=== PATIENT | female | born 1980 | race Caucasian/White ===

== ENCOUNTER 2016-02-25 15:23 | Emergency (ER) | payer OTHER ==
[~2016-02-25] VITALS: Ht 170.2 cm; Wt 92.2 kg
[~2016-02-25 15:23] MED LIST: OXYC1TAB3 PO; POTA1080 PO
[2016-02-25 15:25] VITALS: TEMP 37; Ht 170.2 cm; Wt 92.2 kg
[2016-02-25] MEDS ORDERED: ONDANSETRON INJ 2 MG/ML 2 ML VIAL IV STA (15:35)
[2016-02-25] MEDS ORDERED: SODIUM CHLORIDE 0.9% 1000ML 1,000 ML IV STA (15:35)
[2016-02-25] MEDS ORDERED: HYDROmorphone INJ 1 MG/ML SYR IV STA (15:35)
[2016-02-25 15:52] LABS: PREG INTERNAL NEGATIVE QC NEG CLEAR BACKGROUND; PREG INTERNAL POSITIVE QC POS CONTROL LINE; URINE APPEARANCE CLOUDY (CLEAR); URINE BILIRUBIN NEG (NEG); URINE COLOR YELLOW; URINE EPITHELIAL CELL AUTO >30 /lpf (0-5); URINE NITRITE NEG (NEG); URINE PH 7.5 (4.5-7.5); UROBILINOGEN NEG (NEG)
[2016-02-25 15:53] LABS: MANUAL MICROSCOPIC REQUIRED? NO; REVIEW REQ? NO
[2016-02-25 16:04] LABS: BASO % 0.3 %; BASO ABS # 0.03 K/uL (0-0.2); COMPLETE YES; EOS % 0.7 %; HEMATOCRIT 36.3 % (37-47); IG% 0.1 %; LYMPH % 32.1 %; LYMPH ABS # 3.22 K/uL (1.2-3.4); MEAN CELL VOLUME 79.3 fL (80-100); MEAN CORPUSCULAR HEMOGLOBIN 24.5 pg (25-34); MEAN CORPUSCULAR HGB CONC 30.9 g/dl (32-36); MEAN PLATELET VOLUME 9.1 fL (7.4-10.4); MONO % 6.4 %; NEUT % 60.4 %; PLATELET COUNT 322 K/uL (130-400); RED BLOOD COUNT 4.58 M/uL (4.2-5.4); WHITE BLOOD COUNT 10.02 K/uL (4.8-10.8)
[2016-02-25 16:23] LABS: ALT/SGPT 25 U/L (12-78); AST/SGOT 10 U/L (15-37); BLOOD UREA NITROGEN 12 mg/dl (7-18); BUN/CREATININE RATIO 12.2 (10-20); CALCIUM 8.9 mg/dl (8.5-10.1); CARBON DIOXIDE 26 mmol/L (21-32); CHLORIDE 108 mmol/L (98-107); GLUCOSE 117 mg/dl (70-99); POTASSIUM 3.7 mmol/L (3.5-5.1); SODIUM 142 mmol/L (136-145)
[2016-02-25 16:26] LABS: ALKALINE PHOSPHATASE 71 U/L (45-117)
[2016-02-25] MEDS ORDERED: SULF800T23 PO (16:52)
[2016-02-25] MEDS ORDERED: OXYC1TAB3 PO (16:52)
--- NOTE | 2016-02-25 17:23 | EMERGENCY ROOM VISIT NOTE ---
History Report prepared by Irving: Fuentes Doe Under the Supervision of: Dr. Isaias Myers M.D. First contact with patient: 15:29 Chief Complaint: FLANK PAIN Stated Complaint: KIDNEY PAIN History of Present Illness The patient is a 35 year old female who presents to the Emergency Room with complaints of constant right flank pain since yesterday. The pain is sharp and is consistent with past kidney stones. The patient also complains of nausea. The patient denies any fevers, vomiting, diarrhea, or urinary symptoms. She denies the possibility of . She had a renal ultrasound in December. The patient does follow up with Urology. Source of History: patient Onset: yesterday Position: back (right flank) Symptom Intensity: moderate Quality: sharp Timing: constant Associated Symptoms: + nausea, No diarrhea, No fevers, No urinary symptoms, No vomiting Review of Systems See HPI for pertinent positives & negatives. A total of 10 systems reviewed and were otherwise negative. Past Medical & Surgical Medical Problems: (1) De Quervain's tenosynovitis, right (2) Depression (3) Kidney stones (4) Pyelonephritis (5) Right ureteral calculus Family History No significant family history Social History Smoking Status: Current Every Day Smoker Alcohol Use: none Drug Use: none Marital Status: single Housing Status: lives with family Occupation Status: employed Current/Historical Medications Scheduled Potassium Citrate (Urocit-K), 10 MEQ PO TID Sulfa/Trimethoprim (Bactrim Ds 800MG/160MG), 1 TAB PO BID Scheduled PRN Acetaminophen (Tylenol), 1,000 MG PO Q6H PRN for Pain Ysjgjpq-Nndmvespoanvo-Zuqejufy (Excedrin Extra Strength), 1-2 TABS PO Q8 PRN for Pain Oxycodone Ir (Roxicodone Ir), 5 MG PO Q4H PRN for Pain Allergies Coded Allergies: Morphine (Verified Allergy, Intermediate, HIVES, 01/10/16) Naproxen (Verified Allergy, Intermediate, HIVES, 01/10/16) Physical Exam Vital Signs Date Time Temp Pulse Resp B/P Pulse Ox O2 Delivery O2 Flow Rate FiO2 02/25/16 15:25 37.0 117 18 122/86 100 Room Air Physical Exam Constitutional: Vital signs reviewed. Eyes: Pupils are equal round reactive to light. Conjunctiva are noninjected. ENT: Pharynx is clear without erythema or exudate. Mucous membranes are moist. Neck supple without meningeal signs. Respiratory: Clear to auscultation bilaterally. Breath sounds are equal bilaterally. Cardiovascular: Regular rate and rhythm. No rubs or gallops. GI: Soft, nondistended and nontender. Bowel sounds are present. Musculoskeletal: No peripheral edema. No CVA tenderness. Integumentary: No cyanosis. Neurological: The patient is awake and alert. No focal deficits. Psychiatric: Normal affect. Medical Decision & Procedures Laboratory Results 02/25/16 15:50 Red Blood Count 4.58, Mean Corpuscular Volume 79.3, Mean Corpuscular Hemoglobin 24.5, Mean Corpuscular Hemoglobin Concent 30.9, Mean Platelet Volume 9.1, Neutrophils (%) (Auto) 60.4, Lymphocytes (%) (Auto) 32.1, Monocytes (%) (Auto) 6.4, Eosinophils (%) (Auto) 0.7, Basophils (%) (Auto) 0.3, Neutrophils # (Auto) 6.05, Lymphocytes # (Auto) 3.22, Monocytes # (Auto) 0.64, Eosinophils # (Auto) 0.07, Basophils # (Auto) 0.03 02/25/16 15:50 Test 02/25/16 00:00 02/25/16 15:50 Urine Color YELLOW Urine Appearance CLOUDY (CLEAR) Urine pH 7.5 (4.5-7.5) Urine Specific [place] 1.010 (1.000-1.030) Urine Protein NEG (NEG) Urine Glucose (UA) NEG (NEG) Urine Ketones NEG (NEG) Urine Occult Blood NEG (NEG) Urine Nitrite NEG (NEG) Urine Bilirubin NEG (NEG) Urine Urobilinogen NEG (NEG) Urine Leukocyte Esterase TRACE (NEG) Urine WBC (Auto) 10-30 /hpf (0-5) Urine RBC (Auto) 0-4 /hpf (0-4) Urine Hyaline Casts (Auto) 1-5 /lpf (0-5) Urine Epithelial Cells (Auto) >30 /lpf (0-5) Urine Bacteria (Auto) 1+ (NEG) Urine Test NEG (NEG) White Blood Count 10.02 K/uL (4.8-10.8) Red Blood Count 4.58 M/uL (4.2-5.4) Hemoglobin 11.2 g/dL (12.0-16.0) Hematocrit 36.3 % (37-47) Mean Corpuscular Volume 79.3 fL (80-100) Mean Corpuscular Hemoglobin 24.5 pg (25-34) Mean Corpuscular Hemoglobin Concent 30.9 g/dl (32-36) Platelet Count 322 K/uL (130-400) Mean Platelet Volume 9.1 fL (7.4-10.4) Neutrophils (%) (Auto) 60.4 % Lymphocytes (%) (Auto) 32.1 % Monocytes (%) (Auto) 6.4 % Eosinophils (%) (Auto) 0.7 % Basophils (%) (Auto) 0.3 % Neutrophils # (Auto) 6.05 K/uL (1.4-6.5) Lymphocytes # (Auto) 3.22 K/uL (1.2-3.4) Monocytes # (Auto) 0.64 K/uL (0.11-0.59) Eosinophils # (Auto) 0.07 K/uL (0-0.5) Basophils # (Auto) 0.03 K/uL (0-0.2) RDW Standard Deviation 44.9 fL (36.4-46.3) RDW Coefficient of Variation 15.4 % (11.5-14.5) Immature Granulocyte % (Auto) 0.1 % Immature Granulocyte # (Auto) 0.01 K/uL (0.00-0.02) Anion Gap 8.0 mmol/L (3-11) Est Creatinine Clear Calc Drug Dose 92.4 ml/min Estimated GFR () 85.1 Estimated GFR (Non- 73.5 BUN/Creatinine Ratio 12.2 (10-20) Calcium Level 8.9 mg/dl (8.5-10.1) Total Bilirubin 0.2 mg/dl (0.2-1) Direct Bilirubin < 0.1 mg/dl (0-0.2) Aspartate Amino Transf (AST/SGOT) 10 U/L (15-37) Alanine Aminotransferase (ALT/SGPT) 25 U/L (12-78) Alkaline Phosphatase 71 U/L (45-117) Total Protein 7.7 gm/dl (6.4-8.2) Albumin 3.9 gm/dl (3.4-5.0) Lipase 261 U/L (73-393) Laboratory results as reviewed by me. Medications Administered Medications (Trade) Dose Ordered Sig/Agus Route Start Time Stop Time Status Last Admin Dose Admin Ondansetron HCl (Zofran Inj) 4 mg NOW STAT IV 02/25/16 15:35 02/25/16 15:36 DC 02/25/16 15:55 4 MG Hydromorphone HCl 0.5 mg 0.5 mg NOW STAT IV 02/25/16 15:35 02/25/16 15:36 DC 02/25/16 15:55 0.5 MG Sodium Chloride (Nss 1000ml) 1,000 ml @ 999 mls/hr Q1H1M STAT IV 02/25/16 15:35 02/25/16 16:35 DC 02/25/16 15:56 999 MLS/HR ED Course 1531: The patient was evaluated in room A9b. A complete history and physical exam was performed. 1535: NSS 1000 ml @ 999 mls/hr, Dilaudid 0.5 mg IV, Zofran 4 mg IV. 1645: Checked on the patient. She is feeling better. 1649: The [place] Prescription Drug Monitoring Program was reviewed for the patient. No issues identified. 1650: Upon reevaluation, the patient appeared to have improvement of her symptoms. I discussed tiffanie's findings with her. She verbalized agreement of the treatment plan. She was discharged home. Medical Decision This is a 35-year-old female who presents with right flank pain. Differential diagnosis includes renal colic, hydronephrosis, UTI, pancreatitis, strain. I did perform a limited focused review of portions of the patient's old chart on the electronic medical record. The patient was here on January 10 for flank pain on the left side. She had a renal ultrasound which showed mild hydronephrosis and bilateral medullary nephrocalcinosis. I did evaluate the patient as noted above. The patient is presenting with right flank pain which she states is consistent with her prior pain with renal colic. She did have nephrocalcinosis on her prior ultrasound. She has no tenderness on examination to suggest an acute surgical process. I did treat the patient with IV Zofran, Dilaudid and normal saline IV. I did order and personally review the patient's urinalysis as described above. A urine culture was sent. I did order and review the patient's blood work as noted in the electronic medical record. I did reassess the patient. She is feeling better. I did recommend she follow up with her doctor. She was discharged with a prescription for Bactrim and oxycodone. Impression Primary Impression: Right flank pain Additional Impression: UTI (urinary tract infection) Scribe Attestation The scribe's documentation has been prepared under my direct and personally reviewed by me in its entirety. I confirm that the note above accurately reflects all work, treatment, procedures, and medical decision making performed by me. Departure Information Dispostion Home / Self-Care Prescriptions Oxycodone Ir (Roxicodone Ir) 5 Mg Tab 5 MG PO Q4H Y for Pain, #14 TAB Prov: Isaias Myers M.D. 02/25/16 Sulfa/Trimethoprim (Bactrim Ds 800MG/160MG) Tab 1 TAB PO BID, #14 TAB Prov: Isaias Myers M.D. 02/25/16 Referrals aMrk Tuttle M.D. (PCP) Forms HOME CARE DOCUMENTATION FORM, IMPORTANT VISIT INFORMATION Patient Instructions A Signature Page, ED Flank Pain Uncertain Cause, [facility] Additional Instructions You have been examined and treated today on an emergency basis only. This is not a substitute for, or an effort to provide, complete comprehensive medical care. It is impossible to recognize and treat all injuries or illnesses in a single emergency department visit. It is therefore important that you follow up closely with your physician. Call as soon as possible for an appointment. Return for worsening symptoms or if you develop fever, vomiting, or any other concerning symptoms. Problem Qualifiers Additional Impression: UTI (urinary tract infection) Urinary tract infection type: acute cystitis Hematuria presence: without hematuria Qualified Codes: N30.00 - Acute cystitis without hematuria
[2016-02-25 17:24] VITALS: BP 132/74; PULSE 84; O2SAT 99
[2016-06-04] MEDS ORDERED: ASPI-391 PO (06:52)
== END 2016-02-25 17:27 | disposition home or self-care (01) ==
LOC: C.EDB 15:24 → C.EDA 17:27
DX: N30.00 Acute cystitis without hematuria (principal); F17.200 Nicotine dependence, unspecified, uncomplicated; Z87.442 Personal history of urinary calculi; Z87.448 Personal history of other diseases of urinary system; Z88.5 Allergy status to narcotic agent; Z88.6 Allergy status to analgesic agent

== ENCOUNTER 2016-04-06 19:16 | Emergency (ER) | payer OTHER ==
[~2016-04-06] VITALS: Ht 170.2 cm; Wt 92.7 kg
[~2016-04-06 19:16] MED LIST changes: +SULF800T23 PO
[2016-04-06 19:37] VITALS: TEMP 37.5; Ht 170.2 cm; Wt 92.7 kg
[2016-04-06] MEDS ORDERED: ONDANSETRON INJ 2 MG/ML 2 ML VIAL IV STA (20:43)
[2016-04-06] MEDS ORDERED: HYDROmorphone INJ 0.5 MG/0.5 ML SYR IV STA (20:43)
[2016-04-06] MEDS ORDERED: SODIUM CHLORIDE 0.9% 1000ML 1,000 ML IV STA ×2 (20:43→20:53)
[2016-04-06 21:12] LABS: URINE APPEARANCE CLOUDY (CLEAR); URINE BILIRUBIN NEG (NEG); URINE COLOR YELLOW; URINE EPITHELIAL CELL AUTO >30 /lpf (0-5); URINE NITRITE NEG (NEG); URINE PH 7.5 (4.5-7.5); URINE SPECIFIC GRAVITY 1.003 (1.000-1.030); UROBILINOGEN NEG (NEG); ZZUR CULT IF INDIC CLEAN CATCH NO
[2016-04-06 21:13] LABS: MANUAL MICROSCOPIC REQUIRED? NO; REVIEW REQ? NO
[2016-04-06 21:15] LABS: HEMATOCRIT 33.4 % (37-47); MEAN CELL VOLUME 74.2 fL (80-100); MEAN CORPUSCULAR HEMOGLOBIN 23.3 pg (25-34); MEAN CORPUSCULAR HGB CONC 31.4 g/dl (32-36); MEAN PLATELET VOLUME 8.5 fL (7.4-10.4); PLATELET COUNT 365 K/uL (130-400); WHITE BLOOD COUNT 12.22 K/uL (4.8-10.8)
--- NOTE | 2016-04-06 21:22 | DIAGNOSTIC IMAGING REPORT ---
ABDOMEN AND PELVIS CT WITHOUT CONTRAST CT DOSE: 576.24 mGy.cm HISTORY: Flank pain r flank pain TECHNIQUE: Multiaxial CT images of the abdomen and pelvis were performed without contrast. COMPARISON STUDY: 09/12/2015 FINDINGS: Lung bases are clear. Liver spleen and pancreas are unremarkable. Kidneys again show evidence for medullary nephrocalcinosis. No evidence for an obstructing urinary tract calculus. Normal appendix. Bowel pattern is nonobstructive. Bladder is midline. IMPRESSION: 1. Medullary nephrocalcinosis unchanged from the prior study. 2. No evidence for an obstructing urinary tract calculus. 3. Otherwise negative study. 4. No change from the prior study. Electronically signed by: Alvarado Villa M.D. 04/06/2016 9:20 PM Dictated Date/Time: 04/06/2016 9:17 PM
[2016-04-06 21:40] LABS: ALT/SGPT 27 U/L (12-78); BLOOD UREA NITROGEN 11 mg/dl (7-18); BUN/CREATININE RATIO 10.9 (10-20); CARBON DIOXIDE 23 mmol/L (21-32); CHLORIDE 106 mmol/L (98-107); GLUCOSE 78 mg/dl (70-99); POTASSIUM 3.5 mmol/L (3.5-5.1); SODIUM 139 mmol/L (136-145)
[2016-04-06 21:43] LABS: ALKALINE PHOSPHATASE 73 U/L (45-117); AST/SGOT 15 U/L (15-37)
[2016-04-06 21:45] LABS: BASO % 0.3 %; BASO ABS # 0.04 K/uL (0-0.2); COMPLETE YES; EOS % 0.7 %; IG% 0.2 %; LYMPH % 31.3 %; LYMPH ABS # 3.82 K/uL (1.2-3.4); MONO % 6.5 %
[2016-04-06 21:59] VITALS: BP 119/77; PULSE 90; O2SAT 98
--- NOTE | 2016-04-06 23:10 | EMERGENCY ROOM VISIT NOTE ---
History Report prepared by Nanyibkaylen: Sheba Dunn Under the Supervision of: Jimmy ZamoranoO. First contact with patient: 20:37 Chief Complaint: KIDNEY STONE Stated Complaint: KIDNEY STONE UTI History of Present Illness The patient is a 35 year old female who presents to the Emergency Room with complaints of severe and constant right flank pain starting yesterday. Yesterday , she started having a malodorous urine but denies any other urinary symptoms. She currently complains of nausea. She describes her current pain to be similar to her past UTI and kidney stone symptoms. Patient has no other complaints at this time. No radiation of the pain. Pt denies headache, change in vision, fevers, chest pain, shortness of breath, vomiting, diarrhea, pain with urination , and melena. Source of History: patient Onset: yesterday Position: other (right flank ) Symptom Intensity: severe Timing: constant Associated Symptoms: + nausea, No SOB, No chest pain, No diarrhea, No fevers , No headache, No vomiting Review of Systems See HPI for pertinent positives & negatives. A total of 10 systems reviewed and were otherwise negative. Past Medical & Surgical Medical Problems: (1) De Quervain's tenosynovitis, right (2) Depression (3) Kidney stones (4) Pyelonephritis (5) Right ureteral calculus Family History No significant family history Social History Smoking Status: Current Every Day Smoker Alcohol Use: none Drug Use: none Marital Status: single Housing Status: lives with family Occupation Status: employed Current/Historical Medications Scheduled Potassium Citrate (Urocit-K), 10 MEQ PO TID Scheduled PRN Acetaminophen (Tylenol), 1,000 MG PO Q6H PRN for Pain Jpnsquy-Tbstkrqteilqh-Rydtauzi (Excedrin Extra Strength), 1-2 TABS PO Q8 PRN for Pain Allergies Coded Allergies: Morphine (Verified Allergy, Intermediate, HIVES, 01/10/16) Naproxen (Verified Allergy, Intermediate, HIVES, 01/10/16) Physical Exam Vital Signs Date Time Temp Pulse Resp B/P Pulse Ox O2 Delivery O2 Flow Rate FiO2 04/06/16 21:59 90 18 119/77 98 Room Air 04/06/16 20:57 91 16 137/72 99 Room Air 04/06/16 19:37 37.5 123 18 140/93 99 Room Air Physical Exam GENERAL: Sitting up on edge of bed, disheveled, holding right flank. EYE EXAM: normal conjunctiva OROPHARYNX: no exudate, no erythema, lips, buccal mucosa, and tongue normal and mucous membranes are moist NECK: supple, no nuchal rigidity, no adenopathy, non-tender LUNGS: Clear to auscultation. Normal chest wall mechanics HEART: Tachycardic rate. no murmurs, S1 normal and S2 normal ABDOMEN: abdomen soft, non-tender, normo-active bowel sounds, no masses, no rebound or guarding. BACK: Back is symmetrical on inspection and there is no deformity, no midline tenderness, no CVA tenderness. Slight tenderness over the right mid thoracic region. SKIN: no rashes and no bruising UPPER EXTREMITIES: upper extremities are grossly normal. LOWER EXTREMITIES: No pitting edema. NEURO EXAM: Normal sensorium, cranial nerves II-XII grossly intact, normal speech, no gross weakness of arms, no gross weakness of legs. Medical Decision & Procedures ER Provider Diagnostic Interpretation: CT:Per my review, radiologist interpretation. ABDOMEN AND PELVIS CT WITHOUT CONTRAST CT DOSE: 576.24 mGy.cm HISTORY: Flank pain r flank pain TECHNIQUE: Multiaxial CT images of the abdomen and pelvis were performed without contrast. COMPARISON STUDY: 09/12/2015 FINDINGS: Lung bases are clear. Liver spleen and pancreas are unremarkable. Kidneys again show evidence for medullary nephrocalcinosis. No evidence for an obstructing urinary tract calculus. Normal appendix. Bowel pattern is nonobstructive. Bladder is midline. IMPRESSION: 1. Medullary nephrocalcinosis unchanged from the prior study. 2. No evidence for an obstructing urinary tract calculus. 3. Otherwise negative study. 4. No change from the prior study. Electronically signed by: Alvarado Villa M.D. 04/06/2016 9:20 PM Dictated Date/Time: 04/06/2016 9:17 PM Laboratory Results 04/06/16 21:00 Red Blood Count 4.50, Mean Corpuscular Volume 74.2, Mean Corpuscular Hemoglobin 23.3, Mean Corpuscular Hemoglobin Concent 31.4, Mean Platelet Volume 8.5, Neutrophils (%) (Auto) 61.0, Lymphocytes (%) (Auto) 31.3, Monocytes (%) (Auto) 6.5, Eosinophils (%) (Auto) 0.7, Basophils (%) (Auto) 0.3, Neutrophils # (Auto) 7.45, Lymphocytes # (Auto) 3.82, Monocytes # (Auto) 0.80, Eosinophils # (Auto) 0.08, Basophils # (Auto) 0.04 04/06/16 21:00 Test 04/06/16 20:45 04/06/16 21:00 Urine Color YELLOW Urine Appearance CLOUDY (CLEAR) Urine pH 7.5 (4.5-7.5) Urine Specific [place] 1.003 (1.000-1.030) Urine Protein NEG (NEG) Urine Glucose (UA) NEG (NEG) Urine Ketones NEG (NEG) Urine Occult Blood NEG (NEG) Urine Nitrite NEG (NEG) Urine Bilirubin NEG (NEG) Urine Urobilinogen NEG (NEG) Urine Leukocyte Esterase TRACE (NEG) Urine WBC (Auto) 1-5 /hpf (0-5) Urine RBC (Auto) 0-4 /hpf (0-4) Urine Hyaline Casts (Auto) 1-5 /lpf (0-5) Urine Epithelial Cells (Auto) >30 /lpf (0-5) Urine Bacteria (Auto) NEG (NEG) Urine Test NEG (NEG) White Blood Count 12.22 K/uL (4.8-10.8) Red Blood Count 4.50 M/uL (4.2-5.4) Hemoglobin 10.5 g/dL (12.0-16.0) Hematocrit 33.4 % (37-47) Mean Corpuscular Volume 74.2 fL (80-100) Mean Corpuscular Hemoglobin 23.3 pg (25-34) Mean Corpuscular Hemoglobin Concent 31.4 g/dl (32-36) Platelet Count 365 K/uL (130-400) Mean Platelet Volume 8.5 fL (7.4-10.4) Neutrophils (%) (Auto) 61.0 % Lymphocytes (%) (Auto) 31.3 % Monocytes (%) (Auto) 6.5 % Eosinophils (%) (Auto) 0.7 % Basophils (%) (Auto) 0.3 % Neutrophils # (Auto) 7.45 K/uL (1.4-6.5) Lymphocytes # (Auto) 3.82 K/uL (1.2-3.4) Monocytes # (Auto) 0.80 K/uL (0.11-0.59) Eosinophils # (Auto) 0.08 K/uL (0-0.5) Basophils # (Auto) 0.04 K/uL (0-0.2) RDW Standard Deviation 43.8 fL (36.4-46.3) RDW Coefficient of Variation 16.1 % (11.5-14.5) Immature Granulocyte % (Auto) 0.2 % Immature Granulocyte # (Auto) 0.03 K/uL (0.00-0.02) Anion Gap 10.0 mmol/L (3-11) Est Creatinine Clear Calc Drug Dose 92.7 ml/min Estimated GFR () 85.1 Estimated GFR (Non- 73.5 BUN/Creatinine Ratio 10.9 (10-20) Calcium Level 9.0 mg/dl (8.5-10.1) Total Bilirubin 0.3 mg/dl (0.2-1) Direct Bilirubin < 0.1 mg/dl (0-0.2) Aspartate Amino Transf (AST/SGOT) 15 U/L (15-37) Alanine Aminotransferase (ALT/SGPT) 27 U/L (12-78) Alkaline Phosphatase 73 U/L (45-117) Total Protein 7.8 gm/dl (6.4-8.2) Albumin 3.8 gm/dl (3.4-5.0) Lipase 196 U/L (73-393) Laboratory results per my review. Medications Administered Medications (Trade) Dose Ordered Sig/Agus Route Start Time Stop Time Status Last Admin Dose Admin Sodium Chloride (Nss 1000ml) 1,000 ml @ 999 mls/hr Q1H1M STAT IV 04/06/16 20:43 04/06/16 21:43 DC 04/06/16 20:54 999 MLS/HR Ondansetron HCl (Zofran Inj) 4 mg NOW STAT IV 04/06/16 20:43 04/06/16 20:44 DC 04/06/16 20:54 4 MG Hydromorphone HCl 0.5 mg 0.5 mg NOW STAT IV 04/06/16 20:43 04/06/16 20:44 DC 04/06/16 20:55 0.5 MG Sodium Chloride (Nss 1000ml) 1,000 ml @ 999 mls/hr Q1H1M STAT IV 04/06/16 20:53 04/06/16 21:53 DC 04/06/16 21:18 999 MLS/HR ED Course ED COURSE: Vital signs were reviewed and showed tachycardic. The patients medical record was reviewed The above diagnostic studies were performed and reviewed. ED treatments and interventions as stated above. 2036: The patient was evaluated in room B11B. A complete history and physical examination was performed. 2042: Dilaudid Inj 0.5 mg IV, Zofran Inj 4 mg IV, Sodium Chloride 1000 ml @ 999 mls/hr IV 2052: Sodium Chloride 1000 ml @ 999 mls/hr IV 2144: Upon reevaluation, the patient is resting comfortably.I discussed my findings with the patient and she understands and agrees with the treatment plan. Based on the patients age, coexisting illnesses, exam and lab findings the decision to treat as an outpatient was made. The patient remained stable while under my care. The patient appeared well at the time of discharge. Medical Decision Differential diagnosis: Etiologies such as renal colic, appendicitis, diverticulitis, mesenteric ischemia, aortic pathology, infections, inflammatory bowel disease, PUD, biliary pathology, UTI, as well as others were entertained. Patient is a 35-year-old female who presents the ER with right flank pain. She notes that this started earlier today and has been worsening. She does admit that this feels a previous stones. She denies any hematuria, dysuria or urinary frequency. No fevers. She does have minimal right paraspinal lower thoracic tenderness on exam. CT for stone was negative. UA was unremarkable. No signs of infection. Vitals are stable. She had a mild leukocytosis. BMP along with LFTs, bilirubin and lipase was unremarkable as well. Urine preg negative. Patient is given IV Dilaudid and felt slightly better. She discharged follow with her primary care doctor as this is likely muscle skeletal in nature. Discussed with Pt concerning signs and symptoms to watch out for. Pt was instructed to follow up with their PCP and discussed with the patient their option to return to the ED at anytime for persistent or worsening symptoms. The appropriate anticipatory guidance and out-patient management, including indications for return to the emergency department, were explained at length to the patient and understood. Impression Primary Impression: Flank pain, acute Scribe Attestation The scribe's documentation has been prepared under my direction and personally reviewed by me in its entirety. I confirm that the note above accurately reflects all work, treatment, procedures, and medical decision making performed by me. Departure Information Dispostion Home / Self-Care Referrals Mark Tuttle M.D. (PCP) Forms HOME CARE DOCUMENTATION FORM, IMPORTANT VISIT INFORMATION Patient Instructions ED Flank Pain Uncertain Cause, My [facility] Additional Instructions Please follow up with your primary care doctor with in the next 24 hours. Any worsening of your symptoms, please return to the ED immediately. This includes fevers greater than 100.4, worsening pain, nausea vomiting, abdominal pain, or any other concerning signs or symptoms from your standpoint. If you have no allergies please take Motrin or Tylenol as needed for pain. Please do not drive, drink alcohol, operate machinery for the next 10 hours with the medications are.
[2016-06-04] MEDS ORDERED: ASPI-391 PO (06:52)
== END 2016-04-06 22:01 | disposition home or self-care (01) ==
LOC: C.EDB 19:17
DX: R10.9 Unspecified abdominal pain (principal); F17.200 Nicotine dependence, unspecified, uncomplicated; Z87.442 Personal history of urinary calculi; Z88.5 Allergy status to narcotic agent; Z88.6 Allergy status to analgesic agent

== ENCOUNTER 2016-06-04 17:34 | Emergency (ER) | payer OTHER ==
[~2016-06-04] VITALS: Ht 170.2 cm; Wt 90.6 kg
[~2016-06-04 17:34] MED LIST changes: +ASPI-391 PO; -OXYC1TAB3 PO; -SULF800T23 PO
[2016-06-04] MEDS ORDERED: TYLOTC500 PO (17:37)
[2016-06-04 17:43] VITALS: TEMP 36.9; Ht 170.2 cm; Wt 90.6 kg
--- NOTE | 2016-06-04 18:18 | DIAGNOSTIC IMAGING REPORT ---
RIGHT ANKLE 3 VIEWS HISTORY: right ankle injury Right COMPARISON: None. FINDINGS: No fracture or dislocation within the right ankle. Small nondisplaced fracture through the anterior process of the calcaneus. Small plantar and posterior calcaneal spurs. Anterior soft tissue swelling. No radiopaque foreign bodies. IMPRESSION: 1. No fracture or dislocation within the right ankle. 2. Small nondisplaced fracture through the anterior process of the calcaneus. Electronically signed by: Mckinley Martínez M.D. 06/04/2016 6:16 PM Dictated Date/Time: 06/04/2016 6:15 PM
[2016-06-04] MEDS ORDERED: OXYCODONE IR HOME PACK PO ONE (19:15)
[2016-06-04] MEDS ORDERED: OXYC1TAB3 PO (19:17)
[2016-06-04 19:44] VITALS: BP 127/100; PULSE 103; O2SAT 99
--- NOTE | 2016-06-04 19:55 | EMERGENCY ROOM VISIT NOTE ---
ED Visit Note First contact with patient: 17:47 CHIEF COMPLAINT: Ankle pain HISTORY OF PRESENT ILLNESS: This 35-year-old female patient presents to the emergency department after sustaining an injury to the right ankle and foot with a twisting, inversion motion 6 days ago. The patient states that she was walking out to get her male, when she inverted her foot. The patient complains of pain along the outside of the ankle. The patient does not have significant pain of the foot. The patient rates the pain as dull and 8/10. The patient is able to bear weight on the foot, however it is uncomfortable. Constant pain, worse with movement, weight bearing, and the dependent position. No knee pain, the patient is able to move their toes. No numbness or weakness of the foot, no laceration. The patient has not had a previous fracture to this ankle. The patient has taken ibuprofen for the pain. The patient denies any other injury. REVIEW OF SYSTEMS: A 6 system review of systems was completed with positives and pertinent negatives listed in the HPI. ALLERGIES: Morphine, naproxen MEDICATIONS: No chronic medications PMH: Otherwise healthy SOCIAL HISTORY: Lives locally PHYSICAL EXAM: Vital Signs: Reviewed Nurse's notes, vital signs stable. GENERAL : White female, no acute distress, but appears in pain, well-developed, well- nourished. MENTAL STATUS: Alert, oriented to person place and time, and cooperative. MUSCULOSKELETAL: The right ankle is swollen and tender over the lateral malleolus, but the skin is intact and there is no ligamentous instability. There is no fifth metatarsal tenderness. There is no tenderness over the rest of the foot. There is no calf or tibia/fibular tenderness. There is no visual deformity. The foot and toes are warm and well-perfused. Dorsalis pedis pulse 2+. Sensation to pain and light touch is intact. Capillary refill less than 2 seconds. RIGHT ANKLE 3 VIEWS HISTORY: right ankle injury Right COMPARISON: None. FINDINGS: No fracture or dislocation within the right ankle. Small nondisplaced fracture through the anterior process of the calcaneus. Small plantar and posterior calcaneal spurs. Anterior soft tissue swelling. No radiopaque foreign bodies. IMPRESSION: 1. No fracture or dislocation within the right ankle. 2. Small nondisplaced fracture through the anterior process of the calcaneus. EMERGENCY DEPARTMENT COURSE: Physical exam and history were performed. Nursing notes and EMR were reviewed. The patient appears to have injured her ankle 6 days ago and has persistent pain. X-ray was obtained and the patient appears to have a small nondisplaced fracture through the anterior calcaneus. Clinically this could explain the patient's symptoms. She does not have pain throughout the remaining body of the calcaneus. She has been ambulatory I do not suspect an unstable injury. The patient was placed in an Ortho-Glass splint with neurovascular status remaining intact. She will be given crutches and made nonweightbearing. I will give her a course of oxycodone and instructions to follow with orthopedics. She lives in [place] and prefers to see [facility]. She will be given her contact information. She was otherwise invited back to the ER with any new, worsening, or concerning symptoms. Problem List Medical Problems: (1) De Quervain's tenosynovitis, right Status: Resolved (2) Depression Status: Chronic (3) Kidney stones Status: Chronic (4) Pyelonephritis Status: Resolved (5) Right ureteral calculus Status: Resolved Current/Historical Medications Scheduled Oxycodone Immediate Rel Tab (Roxicodone Ir), 1-2 TAB PO Q6 Scheduled PRN Acetaminophen (Tylenol), 1,000 MG PO Q6H PRN for Pain Fczhjoc-Zhpnwisyqspja-Gcprvxvd (Excedrin Extra Strength), 1-2 TABS PO Q8 PRN for Pain Allergies Coded Allergies: Morphine (Verified Allergy, Intermediate, HIVES, 01/10/16) Naproxen (Verified Allergy, Intermediate, HIVES, 01/10/16) Vital Signs Date Time Temp Pulse Resp B/P Pulse Ox O2 Delivery O2 Flow Rate FiO2 06/04/16 19:44 103 18 127/100 99 06/04/16 17:43 36.9 122 18 136/76 99 Room Air Medications Administered Medications (Trade) Dose Ordered Sig/Agus Route Start Time Stop Time Status Last Admin Dose Admin Oxycodone HCl (Roxicodone Immediate Rel 5MG Home Pack) 1 homepack UD ONCE PO 06/04/16 19:15 06/04/16 19:16 DC 06/04/16 19:40 1 HOMEPACK Departure Information Impression Primary Impression: Closed right calcaneal fracture Dispostion Home / Self-Care Condition GOOD Prescriptions Oxycodone Immediate Rel Tab (ROXICODONE IR) 5 Mg Tab 1-2 TAB PO Q6 for Pain, #24 TAB Prov: Shaq Campos PA-C 06/04/16 Referrals Fredy Ross D.O. Forms HOME CARE DOCUMENTATION FORM, IMPORTANT VISIT INFORMATION Patient Instructions My [facility] Additional Instructions You were seen and evaluated today on an emergency basis only. This is not a substitute for, or an effort to provide, complete comprehensive medical care. It is not possible to recognize and treat all injuries or illnesses in a single emergency department visit. For this reason it is recommended that you followup with [facility] , Dr. Ross's office, by telephone tomorrow to arrange a follow-up visit next week. Let them know you were in the ER to help facilitate care. Wear your splint and use your crutches until otherwise instructed by orthopedics. Do not get the splint wet. For baseline pain relief you may alternate ibuprofen and acetaminophen every 4 hours for pain control. Take 600 mg ibuprofen (Advil) and then 4 hours later take 1000 mg acetaminophen (Tylenol). Do not take more than 3000 mg acetaminophen in a single day. Oxycodone (OxyIR) 5mg: Take ONE or TWO pills every SIX hours for breakthrough pain. Avoid alcohol, operating machinery or dangerous equipment, working on ladders or roofs, DRIVING, or situations where being under the influence may be dangerous. It is recommended to use an ycyi-rlv-ebelgrt stool softener such as Colace, 100mg twice daily while taking this medication to avoid constipation. You are welcome to return to the emergency department anytime with new, worsening, or concerning symptoms.
== END 2016-06-04 19:47 | disposition home or self-care (01) ==
LOC: C.EDB 17:35 → C.EDD 19:47
DX: S92.024A Nondisplaced fracture of anterior process of right calcaneus, initial encounter for closed fracture (principal); X50.1XXA Overexertion from prolonged static or awkward postures, initial encounter; Y93.01 Activity, walking, marching and hiking; Y99.8 Other external cause status; Z87.442 Personal history of urinary calculi

== ENCOUNTER 2016-08-21 14:46 | Emergency (ER) | payer OTHER ==
[~2016-08-21] VITALS: Ht 170.2 cm; Wt 87.3 kg
[~2016-08-21 14:46] MED LIST changes: +OXYC1TAB3 PO; -POTA1080 PO; +TYLOTC500 PO
[2016-08-21 14:51] VITALS: TEMP 37.1; Ht 170.2 cm; Wt 87.3 kg
[2016-08-21] MEDS ORDERED: HYDROCODONE/ACETAMOPHEN 5/325MG TAB PO STA (15:14)
--- NOTE | 2016-08-21 15:19 | EMERGENCY ROOM VISIT NOTE ---
ED Visit Note First contact with patient: 14:57 CHIEF COMPLAINT: Toothache HISTORY OF PRESENT ILLNESS: This 35-year-old female presents the ER with chief complaint of left upper tooth pain. The patient states she had a sudden onset of tooth pain this morning after she was finished running errands. She states the pain has gotten progressively worse. The patient called her dentist and hasn't appointment for Wednesday. She has been taking ibuprofen for pain without any relief. The patient denies any facial or neck swelling. REVIEW OF SYSTEMS: 6 system review was performed and was negative unless stated otherwise in history of present illness. PMH: The patient is healthy; kidney stones SOCIAL HISTORY: Patient lives with her children. The patient admits to tobacco use but denies any alcohol use. PHYSICAL EXAM: Vital Signs: Were reviewed Reviewed Nurse's notes. GENERAL: 35- year-old white female appears uncomfortable secondary to tooth pain. MENTAL Status: Alert and oriented 3. MOUTH: Patient has poor dentition throughout with severe decay of several left upper molars. FACE: There is no facial swelling, NECK: No cervical or submandibular lymphadenopathy. EMERGENCY COURSE: The patient was evaluated. The patient was given [place] 5/325 mg 2 tablets by mouth for pain the patient was discharged home in stable condition with her boyfriend driving. DIAGNOSIS: Dentalgia and dental caries DISCHARGE INSTRUCTIONS & TREATMENT: Take amoxicillin as prescribed. Ibuprofen 600 mg every 6 hours with food for pain. Take Herndon as needed for more severe pain. Do not drive while taking the Herndon. Keep scheduled appointment with her dentist on Wednesday for definitive care. Problem List Medical Problems: (1) De Quervain's tenosynovitis, right Status: Resolved (2) Depression Status: Chronic (3) Kidney stones Status: Chronic (4) Pyelonephritis Status: Resolved (5) Right ureteral calculus Status: Resolved Current/Historical Medications Scheduled Oxycodone Immediate Rel Tab (Roxicodone Ir), 1-2 TAB PO Q6 Scheduled PRN Acetaminophen (Tylenol), 1,000 MG PO Q6H PRN for Pain Veuuznu-Vatzgxtbebrks-Rlnsdjcf (Excedrin Extra Strength), 1-2 TABS PO Q8 PRN for Pain Allergies Coded Allergies: Morphine (Verified Allergy, Intermediate, HIVES, 01/10/16) Naproxen (Verified Allergy, Intermediate, HIVES, 01/10/16) Vital Signs Date Time Temp Pulse Resp B/P (MAP) Pulse Ox O2 Delivery O2 Flow Rate FiO2 08/21/16 14:51 37.1 110 16 125/85 99 Room Air Departure Information Referrals Mark Tuttle M.D. (PCP) Patient Instructions My [facility]
[2016-08-21] MEDS ORDERED: HYDR-5688 PO (15:22)
[2016-08-21] MEDS ORDERED: AMOX500C3 PO (15:22)
[2016-08-21] MEDS ORDERED: IBUP-103 PO (15:26)
[2016-08-21 15:40] VITALS: BP 118/80; PULSE 91; O2SAT 99
== END 2016-08-21 15:43 | disposition home or self-care (01) ==
LOC: C.EDB 14:47 → C.EDD 15:43
DX: K08.89 Other specified disorders of teeth and supporting structures (principal); K02.9 Dental caries, unspecified; F32.9 Major depressive disorder, single episode, unspecified; F17.200 Nicotine dependence, unspecified, uncomplicated; N20.0 Calculus of kidney

== ENCOUNTER 2016-09-06 19:11 | Emergency (ER) | payer OTHER ==
[~2016-09-06] VITALS: Ht 170.2 cm; Wt 87.5 kg
[~2016-09-06 19:11] MED LIST changes: -ASPI-391 PO; +HYDR-5688 PO; +IBUP-103 PO; -OXYC1TAB3 PO; -TYLOTC500 PO
[2016-09-06 19:13] VITALS: TEMP 36.8; Ht 170.2 cm; Wt 87.5 kg
[2016-09-06] MEDS ORDERED: HYDROmorphone INJ 0.5 MG/0.5 ML SYR IV STA ×2 (19:32→21:52)
[2016-09-06] MEDS ORDERED: SODIUM CHLORIDE 0.9% 1000ML 1,000 ML IV STA ×2 (19:32→21:53)
[2016-09-06] MEDS ORDERED: ONDANSETRON INJ 2 MG/ML 2 ML VIAL IV STA (19:32)
--- NOTE | 2016-09-06 19:56 | EMERGENCY ROOM VISIT NOTE ---
History First contact with patient: 19:17 Chief Complaint: KIDNEY STONE Stated Complaint: KIDNEY STONE PAIN ON R SIDE History of Present Illness The patient is a 36 year old female who presents to the Emergency Room with complaints of right flank pain. The patient states that "her kidneys have been acting up." She reports she has had right flank pain on and off for the past few days which has worsened today. She reports decreased amounts of urine. She is nauseous, but has not vomited. She has a history of kidney stones and has seen Dr. Gaytan in the past. She rates her discomfort a 5.5/10. She has been taking Tylenol at home for the pain. She denies any other urinary symptoms , chest pain, shortness breath, changes in bowel movements, hematochezia or melena. Her last menstrual. Was 3 weeks ago. She denies any abnormal vaginal discharge. Review of Systems A complete 10 point review of systems was reviewed with the patient with pertinent positives and negatives as per history of present illness. All else were negative. Past Medical/Surgical History Medical Problems: (1) De Quervain's tenosynovitis, right (2) Depression (3) Kidney stones (4) Pyelonephritis (5) Right ureteral calculus Family History No significant family history Social History Smoking Status: Current Every Day Smoker Alcohol Use: none Drug Use: none Marital Status: single Housing Status: lives with family Occupation Status: employed Current/Historical Medications Scheduled PRN Ibuprofen Tab (Advil), 400-600 MG PO Q6H PRN for Pain Physical Exam Vital Signs Date Time Temp Pulse Resp B/P (MAP) Pulse Ox O2 Delivery O2 Flow Rate FiO2 09/06/16 22:47 87 17 129/89 99 09/06/16 22:06 82 15 100 09/06/16 22:01 125/91 09/06/16 21:51 85 20 100 09/06/16 21:49 128/79 09/06/16 21:06 90 12 100 09/06/16 21:01 126/82 09/06/16 20:56 90 15 100 09/06/16 20:41 96 21 100 09/06/16 20:31 116/90 09/06/16 20:26 103 34 99 09/06/16 20:11 93 16 99 09/06/16 20:08 91 09/06/16 20:01 131/85 09/06/16 19:13 36.8 124 18 129/85 99 Room Air Physical Exam VITALS: Vitals are noted on the nurse's note and reviewed by myself. Vital signs stable. GENERAL: This is a 36-year-old female, in no acute distress, nondiaphoretic, well-developed well-nourished. SKIN: No rashes noted. HEART: Regular rate and rhythm without murmurs gallops or rubs. LUNGS: Clear to auscultation bilaterally without wheezes, rales or rhonchi. ABDOMEN: Positive bowel sounds x 4. Soft, nontender to palpation. MUSCULOSKELETAL: Mild right CVA tenderness. NEURO: Patient was alert and oriented to person place and time. Medical Decision & Procedures ER Provider Diagnostic Interpretation: KUB FINDINGS: There are faint bilateral renal calculi. No calcifications along the course of either ureter are visualized. There is no pathologic bowel dilatation. IMPRESSION: 1. No evidence of pathologic bowel dilatation 2. Suspected medullary nephrocalcinosis. EXAMINATION: RENAL ULTRASOUND FINDINGS: The right kidney measures 12.6 cm. The left kidney measures 11.9 cm. There is no evidence of hydronephrosis. There is medullary nephrocalcinosis. No bladder abnormalities are visualized. Bilateral ureteral jets were visualized. IMPRESSION : Medullary nephrocalcinosis. No evidence of hydronephrosis. Bilateral ureteral jets were visualized. Laboratory Results 09/06/16 20:10 Red Blood Count 4.21, Mean Corpuscular Volume 75.3, Mean Corpuscular Hemoglobin 23.0, Mean Corpuscular Hemoglobin Concent 30.6, Mean Platelet Volume 9.0, Neutrophils (%) (Auto) 67.3, Lymphocytes (%) (Auto) 24.7, Monocytes (%) (Auto) 6.9, Eosinophils (%) (Auto) 0.6, Basophils (%) (Auto) 0.3, Neutrophils # (Auto) 7.72, Lymphocytes # (Auto) 2.83, Monocytes # (Auto) 0.79, Eosinophils # (Auto) 0.07, Basophils # (Auto) 0.04 09/06/16 19:35 Test 09/06/16 19:20 09/06/16 19:35 09/06/16 20:10 Urine Color DK YELLOW Urine Appearance CLEAR (CLEAR) Urine pH 5.5 (4.5-7.5) Urine Specific [place] 1.028 (1.000-1.030) Urine Protein 1+ (NEG) Urine Glucose (UA) NEG (NEG) Urine Ketones TRACE (NEG) Urine Occult Blood NEG (NEG) Urine Nitrite NEG (NEG) Urine Bilirubin NEG (NEG) Urine Urobilinogen NEG (NEG) Urine Leukocyte Esterase NEG (NEG) Urine WBC (Auto) 5-10 /hpf (0-5) Urine RBC (Auto) 0-4 /hpf (0-4) Urine Hyaline Casts (Auto) 10-30 /lpf (0-5) Urine Epithelial Cells (Auto) >30 /lpf (0-5) Urine Bacteria (Auto) NEG (NEG) Urine Test NEG (NEG) Anion Gap 9.0 mmol/L (3-11) Est Creatinine Clear Calc Drug Dose 52.5 ml/min Estimated GFR () 44.5 Estimated GFR (Non- 38.4 BUN/Creatinine Ratio 5.4 (10-20) Calcium Level 8.8 mg/dl (8.5-10.1) Total Bilirubin 0.2 mg/dl (0.2-1) Direct Bilirubin < 0.1 mg/dl (0-0.2) Aspartate Amino Transf (AST/SGOT) 18 U/L (15-37) Alanine Aminotransferase (ALT/SGPT) 25 U/L (12-78) Alkaline Phosphatase 70 U/L (45-117) Total Protein 7.7 gm/dl (6.4-8.2) Albumin 3.7 gm/dl (3.4-5.0) Lipase 163 U/L (73-393) White Blood Count 11.47 K/uL (4.8-10.8) Red Blood Count 4.21 M/uL (4.2-5.4) Hemoglobin 9.7 g/dL (12.0-16.0) Hematocrit 31.7 % (37-47) Mean Corpuscular Volume 75.3 fL (80-100) Mean Corpuscular Hemoglobin 23.0 pg (25-34) Mean Corpuscular Hemoglobin Concent 30.6 g/dl (32-36) Platelet Count 244 K/uL (130-400) Mean Platelet Volume 9.0 fL (7.4-10.4) Neutrophils (%) (Auto) 67.3 % Lymphocytes (%) (Auto) 24.7 % Monocytes (%) (Auto) 6.9 % Eosinophils (%) (Auto) 0.6 % Basophils (%) (Auto) 0.3 % Neutrophils # (Auto) 7.72 K/uL (1.4-6.5) Lymphocytes # (Auto) 2.83 K/uL (1.2-3.4) Monocytes # (Auto) 0.79 K/uL (0.11-0.59) Eosinophils # (Auto) 0.07 K/uL (0-0.5) Basophils # (Auto) 0.04 K/uL (0-0.2) RDW Standard Deviation 46.5 fL (36.4-46.3) RDW Coefficient of Variation 16.8 % (11.5-14.5) Immature Granulocyte % (Auto) 0.2 % Immature Granulocyte # (Auto) 0.02 K/uL (0.00-0.02) Medications Administered Medications (Trade) Dose Ordered Sig/Agus Route Start Time Stop Time Status Last Admin Dose Admin Sodium Chloride 1,000 ml @ 999 mls/hr Q1H1M STAT IV 09/06/16 19:32 09/06/16 20:32 DC 09/06/16 19:48 999 MLS/HR Ondansetron HCl (Zofran Inj) 4 mg NOW STAT IV 09/06/16 19:32 09/06/16 19:34 DC 09/06/16 19:50 4 MG Hydromorphone HCl (Dilaudid Inj) 0.5 mg NOW STAT IV 09/06/16 19:32 09/06/16 19:34 DC 09/06/16 19:50 0.5 MG Diphenhydramine HCl (Benadryl Inj) 25 mg NOW STAT IV 09/06/16 20:27 09/06/16 20:28 DC 09/06/16 20:59 25 MG Hydromorphone HCl (Dilaudid Inj) 0.5 mg NOW STAT IV 09/06/16 21:52 09/06/16 21:53 DC 09/06/16 22:18 0.5 MG ED Course The patient was evaluated as above. Labs were drawn and IV access was obtained. Patient was medicated with IV fluids, Zofran, and 0.5 mg Dilaudid. Patient requested Benadryl, as she states she becomes itchy with Dilaudid. KUB and ultrasound were performed and read by radiology as above. Patient was reevaluated and felt slightly better. She will be discharged home. Discharge instructions were reviewed with the patient. The patient verbalized understanding of my assessment and treatment plan and was discharged home in good condition. Medical Decision Differential diagnosis includes kidney stone, pyelonephritis, gastroenteritis, colitis, cholecystitis, pancreatitis, bowel obstruction, musculoskeletal pain, among others. The patient is a 36-year-old female who presents today complaining of flank pain. Patient has been seen here multiple times in the past for flank pain with many negative workups. Labs revealed mild leukocytosis which is baseline for the patient. She is anemic and states that she has been in the past. She will follow-up with her primary care provider for recheck of this. Urinalysis was not suggestive of infection. KUB and ultrasound did not show any obstructing stones. The patient may have a recently passed kidney stone or her pain may be musculoskeletal in nature. Creatinine was slightly elevated at 1.7 , however patient has had elevated creatinine in the past. She was instructed to follow-up with her primary care provider regarding this. She will return for any worsening or new/concerning symptoms. The patient's case was reviewed with Dr. Pickett, ED attending physician, who agreed with my assessment and treatment plan. Based on the patient's presentation and work up, I feel the patient is stable for outpatient treatment. The patient was educated to return to the emergency department for any worsening of their current condition or new/concerning symptoms. She will follow up with her PCP. Medication Reconcilliation Current Medication List: was personally reviewed by me Blood Pressure Screening Patient's blood pressure: Normal blood pressure Impression Primary Impression: Right flank pain Departure Information Dispostion Home / Self-Care Condition GOOD Referrals Mark Tuttle M.D. (PCP) Patient Instructions My [facility] Additional Instructions You have been treated in the Emergency Department your Abdominal Pain. Laboratory results and imaging studies have ruled out any emergent causes for your abdominal pain which would warrant admission or surgery. For pain control, you can use the following wzlr-lcb-ootekiy medicines (if >12 yo): - Regular strength (325mg/tab) Tylenol (acetaminophen) 2 tabs every 4-6 hours as needed. Do not exceed 12 tablets in a 24 hour period. Avoid taking more than 4 grams (4000 mg) of Tylenol per day. This includes any other sources of acetaminophen you may take on a regular basis. - Regular strength (200 mg/tab) Advil (ibuprofen) 1-2 tabs every 4-6 hours as needed. Do not exceed a dose of 3200 mg per day. Drink plenty of water and stay well hydrated. As with any trip to the Emergency Department, you should follow-up with your Primary Care Provider from today's visit. You should also follow-up with your urologist. Your hemoglobin was slightly low today and creatinine was slightly elevated. You should follow-up with your primary care provider to have this rechecked. Return to the emergency department if your symptoms persist despite treatment plan outlined above or if the following symptoms occur: Significantly worsening pain, severe vomiting, fevers or any other new/concerning symptoms.
[2016-09-06 20:07] LABS: ALT/SGPT 25 U/L (12-78); BLOOD UREA NITROGEN 9 mg/dl (7-18); BUN/CREATININE RATIO 5.4 (10-20); CALCIUM 8.8 mg/dl (8.5-10.1); CARBON DIOXIDE 22 mmol/L (21-32); CHLORIDE 110 mmol/L (98-107); GLUCOSE 102 mg/dl (70-99); POTASSIUM 3.9 mmol/L (3.5-5.1); SODIUM 141 mmol/L (136-145)
[2016-09-06 20:10] LABS: ALKALINE PHOSPHATASE 70 U/L (45-117); AST/SGOT 18 U/L (15-37)
[2016-09-06 20:22] LABS: BASO % 0.3 %; BASO ABS # 0.04 K/uL (0-0.2); COMPLETE YES; EOS % 0.6 %; HEMATOCRIT 31.7 % (37-47); IG% 0.2 %; LYMPH % 24.7 %; LYMPH ABS # 2.83 K/uL (1.2-3.4); MEAN CELL VOLUME 75.3 fL (80-100); MEAN CORPUSCULAR HGB CONC 30.6 g/dl (32-36); MONO % 6.9 %; NEUT % 67.3 %; PLATELET COUNT 244 K/uL (130-400); RED BLOOD COUNT 4.21 M/uL (4.2-5.4); WHITE BLOOD COUNT 11.47 K/uL (4.8-10.8)
[2016-09-06 20:24] LABS: URINE APPEARANCE CLEAR (CLEAR); URINE BILIRUBIN NEG (NEG); URINE COLOR DK YELLOW; URINE EPITHELIAL CELL AUTO >30 /lpf (0-5); URINE NITRITE NEG (NEG); URINE PH 5.5 (4.5-7.5); URINE SPECIFIC GRAVITY 1.028 (1.000-1.030); UROBILINOGEN NEG (NEG); ZZUR CULT IF INDIC CLEAN CATCH NO
[2016-09-06] MEDS ORDERED: DiphenhydrAMINE HCL 50 MG/ML VIAL IV STA (20:27)
[2016-09-06 20:32] LABS: MANUAL MICROSCOPIC REQUIRED? NO; REVIEW REQ? NO
--- NOTE | 2016-09-06 20:50 | DIAGNOSTIC IMAGING REPORT ---
KUB CLINICAL HISTORY: right flank pain, hx kidney stones COMPARISON STUDY: 01/10/2016 FINDINGS: There are faint bilateral renal calculi. No calcifications along the course of either ureter are visualized. There is no pathologic bowel dilatation. IMPRESSION: 1. No evidence of pathologic bowel dilatation 2. Suspected medullary nephrocalcinosis. Electronically signed by: Alfonso Mccord M.D. 09/06/2016 8:48 PM Dictated Date/Time: 09/06/2016 8:47 PM
--- NOTE | 2016-09-06 21:48 | DIAGNOSTIC IMAGING REPORT ---
EXAMINATION: RENAL ULTRASOUND CLINICAL HISTORY: Right flank pain. History of kidney stones. COMPARISON STUDY: 01/11/2016 FINDINGS: The right kidney measures 12.6 cm. The left kidney measures 11.9 cm. There is no evidence of hydronephrosis. There is medullary nephrocalcinosis. No bladder abnormalities are visualized. Bilateral ureteral jets were visualized. IMPRESSION : Medullary nephrocalcinosis. No evidence of hydronephrosis. Bilateral ureteral jets were visualized. Electronically signed by: Alfonso Mccord M.D. 09/06/2016 9:47 PM Dictated Date/Time: 09/06/2016 9:46 PM
[2016-09-06 22:47] VITALS: BP 129/89; PULSE 87; O2SAT 99
== END 2016-09-06 22:48 | disposition home or self-care (01) ==
LOC: C.EDB 19:11
DX: R10.9 Unspecified abdominal pain (principal); F32.9 Major depressive disorder, single episode, unspecified; F17.200 Nicotine dependence, unspecified, uncomplicated

== ENCOUNTER 2016-11-09 14:27 | Emergency (ER) | payer OTHER ==
[~2016-11-09] VITALS: Ht 170.2 cm; Wt 85.8 kg
[~2016-11-09 14:27] MED LIST changes: -HYDR-5688 PO
[2016-11-09 14:42] VITALS: BP 134/87; PULSE 110; TEMP 37; O2SAT 97; Ht 170.2 cm; Wt 85.8 kg
[2016-11-09] MEDS ORDERED: FERR1TAB13 PO (14:51)
[2016-11-09] MEDS ORDERED: HYDR-5688 PO (15:33)
[2016-11-09] MEDS ORDERED: PENI500T2 PO (15:33)
--- NOTE | 2016-11-09 15:34 | EMERGENCY ROOM VISIT NOTE ---
ED Visit Note First contact with patient: 15:02 CHIEF COMPLAINT: Left upper dental pain 1 day HISTORY OF PRESENT ILLNESS: Patient is a 36-year-old white female who presents to emergency department for evaluation of left upper dental pain. She states the tooth broke over a year ago, but she has not had any trouble with it until just last night when it became painful. She tried taking Tylenol without relief. She notes that she is very sensitive to temperature changes. She denies any blood, pus or foul tasting fluid in her mouth. No difficulty breathing or swallowing. She's not had a fever. She contacted her dentist at [facility], and has an appointment for the . Denies facial swelling or fever. She rates her pain a 7/10. REVIEW OF SYSTEMS: Review of systems as per HPI. All other systems reviewed were negative. At least 6 systems reviewed. PMH: Electronic medical records are reviewed and summarized as above/below. See Problem List. SOCIAL HISTORY: Patient lives at home. Smoker. PHYSICAL EXAM: Vital Signs: Reviewed Nurse's notes. CONSTITUTIONAL: Patient is a well-appearing 36 year-old white female who is awake and alert and in no acute distress. Vital signs are stable. EARS: Tympanic membranes intact, not inflamed, have normal contour. External canals clear. MOUTH: Overall the patient has poor dentition. The left upper rear molar in question has an obvious cavity and is fractured, and is tender to percussion. There is slight swelling along the gumline although no focal abscess. Mucous membranes moist, no lesions, tongue and gums appear normal. THROAT: No pharyngeal injection, exudates, or tonsillar hypertrophy. Airway is patent. No trismus noted. FACE: No facial swelling is appreciated. No cellulitic changes. NECK: No lymphadenopathy. ED COURSE: The patient was seen and evaluated as above. Her old records are reviewed. She has a grossly decayed left upper molar. She has plans to see the dentist in 3 days. She does not have any facial cellulitis, drainable abscess or evidence for Mal angina. She'll be placed on Pen-Vee K, and was given a small prescription for [place]. Medication reconciliation: I attest that I have personally reviewed the patient' s current medication list. Patient was reviewed in the [facility] Prescription Drug Monitoring Program, and there were no red flags noted. She has 3 narcotic prescriptions in the last 12 months. Blood pressure screening : Patient was found to have normal blood pressure on screening and does not require follow-up. Problem List Medical Problems: (1) Abdominal pain Status: Resolved (2) Acute pyelonephritis Status: Resolved (3) Closed right calcaneal fracture Status: Resolved (4) De Quervain's tenosynovitis, right Status: Resolved (5) Dental caries Status: Resolved (6) Dentalgia Status: Resolved (7) Depression Status: Chronic (8) Flank pain Status: Resolved (9) Flank pain Status: Resolved (10) Flank pain, acute Status: Resolved (11) Hydronephrosis of left kidney Status: Resolved (12) Kidney stones Status: Chronic (13) Left flank pain Status: Resolved (14) Mesenteric adenitis Status: Resolved (15) Otalgia of left ear Status: Resolved (16) Otitis externa Status: Resolved (17) Ovarian cyst Status: Resolved (18) Pyelonephritis Status: Resolved (19) Right ureteral calculus Status: Resolved Current/Historical Medications Scheduled Ferrous Sulfate ( Ferrous Sulfate), 325 MG PO QAM Penicillin V Potassium (Veetids), 500 MG PO QID Scheduled PRN Hydrocodone/Acetaminophen 5MG/325MG ([place] 5MG/325MG), 1-2 TABLETS PO Q4 PRN for Pain Allergies Coded Allergies: Morphine (Verified Allergy, Intermediate, HIVES, 11/09/16) Naproxen (Verified Allergy, Intermediate, HIVES, 11/09/16) Vital Signs Date Time Temp Pulse Resp B/P (MAP) Pulse Ox O2 Delivery O2 Flow Rate FiO2 11/09/16 14:42 37.0 110 18 134/87 97 Room Air Departure Information Impression Primary Impression: Pain, dental Prescriptions Penicillin V Potassium (VEETIDS) 500 Mg Tab 500 MG PO QID, #40 TAB Prov: Anna Marie Guadarrama PA 11/09/16 Hydrocodone/Acetaminophen 5MG/325MG ([place] 5MG/325MG) Tab 1-2 TABLETS PO Q4 Y for Pain, #15 TAB For Initial Treatment Prov: Anna Marie Guadarrama PA 11/09/16 Referrals Beckie Almanza PA (PCP) Patient Instructions [facility] Additional Instructions Penicillin 500mg: Take one pill four times daily for 10 days for your dental infection. All antibiotics can cause diarrhea. If this occurs and you feel worse or it does not resolve in 1-2 days follow up with your doctor or return to the Emergency Department as this could be signs of serious underlying problems. Any medication can cause an allergic reaction, stop the pills immediately and return to the ER for rash, hives, breathing difficulties, or swelling. Hydrocodone/Acetaminophen ([place]) 5/325 mg: Take 1-2 pills every four hours for breakthrough pain. Avoid alcohol, operating machinery or dangerous equipment, working on ladders or roofs, DRIVING, or situations where being under the influence may be dangerous. It is recommended to use an [id number] stool softener such as Colace, 100mg twice daily while taking this medication to avoid constipation. Saltwater gargles after meals and before bedtime. Soft foods. Orajel/Anbesol/clove oil as needed for discomfort. Followup with your dentist as scheduled for definitive management. You may also follow up with your primary care physician for pain/care management until you can be seen by your dentist.
== END 2016-11-09 15:47 | disposition home or self-care (01) ==
LOC: C.EDB 14:30 → C.EDD 15:47
DX: K08.89 Other specified disorders of teeth and supporting structures (principal); F17.200 Nicotine dependence, unspecified, uncomplicated; Z87.442 Personal history of urinary calculi

== ENCOUNTER 2016-12-12 13:58 | Emergency (ER) | payer OTHER ==
[~2016-12-12] VITALS: Ht 170.2 cm; Wt 85.8 kg
[~2016-12-12 13:58] MED LIST changes: +FERR1TAB13 PO; +HYDR-5688 PO; -IBUP-103 PO
[2016-12-12 14:00] VITALS: BP 150/100; TEMP 36.7; Ht 170.2 cm; Wt 85.8 kg
[2016-12-12] MEDS ORDERED: PENICILLIN V POTASSIUM 250 MG TAB PO ONE (14:30)
[2016-12-12] MEDS ORDERED: PENI-82 PO (14:34)
[2016-12-12 14:46] VITALS: PULSE 86; O2SAT 96
--- NOTE | 2016-12-12 14:55 | EMERGENCY ROOM VISIT NOTE ---
ED Visit Note First contact with patient: 14:13 CHIEF COMPLAINT: Toothache HISTORY OF PRESENT ILLNESS: This 36-year-old female patient presented to the emergency department with a progressive toothache for past 2 days. The patient believes it is coming from the right upper molar. The pain is now steady and severe and radiates to the face. The patient does not have a dentist appointment set up, but evidently did see a dentist a few weeks ago. She believes that she will be able to make an appointment. They rate their pain a 9 /10 and the ibuprofen and Tylenol they have been taking has not relieved the pain. Denies facial swelling or fever. The patient denies any discharge from the mouth. REVIEW OF SYSTEMS: A 6 system review of systems was completed with positives and pertinent negatives listed in the HPI. ALLERGIES: Morphine, naproxen MEDICATIONS: See EMR PMH: See EMR SOCIAL HISTORY: Employed and lives locally PHYSICAL EXAM: Vitals are noted on the nurse's note and reviewed by myself. Vital signs stable. GENERAL: White female, in no acute distress, nondiaphoretic, well-developed well -nourished. Mouth: The right upper molar #1 tooth is very carious and the gum is swollen and tender around it, without any discharge or signs of an abscess. The remainder of the pharynx and tonsils are without erythema, edema, or exudate. The airway is patent. There is no facial swelling, cervical or submandibular lymphadenopathy. The patient appears uncomfortable and in pain. The patient has overall poor to fair dental hygiene. EARS: External auditory canals clear, tympanic membranes pearly thakur without erythema or effusion bilaterally. HEART: Regular rate and rhythm without murmur gallop or rub LUNG: Clear to auscultation bilateral ED COURSE: Physical exam and history were performed. Nursing notes and EMR were reviewed. The patient has dental pain for the past 2 days. She does not have obvious abscess or Mal on examination. She has been seen several times previously in this department for dental issues. She understands that she must follow with a dentist for definitive care. She will be started on Pen-Vee K here and given a prescription for this medication. She may use over-the- counter analgesics and was otherwise invited back to the ER with any new, worsening, or concerning symptoms. Problem List Medical Problems: (1) Abdominal pain Status: Resolved (2) Acute pyelonephritis Status: Resolved (3) Closed right calcaneal fracture Status: Resolved (4) De Quervain's tenosynovitis, right Status: Resolved (5) Dental caries Status: Resolved (6) Dentalgia Status: Resolved (7) Depression Status: Chronic (8) Flank pain Status: Resolved (9) Flank pain Status: Resolved (10) Flank pain, acute Status: Resolved (11) Hydronephrosis of left kidney Status: Resolved (12) Kidney stones Status: Chronic (13) Left flank pain Status: Resolved (14) Mesenteric adenitis Status: Resolved (15) Otalgia of left ear Status: Resolved (16) Otitis externa Status: Resolved (17) Ovarian cyst Status: Resolved (18) Pyelonephritis Status: Resolved (19) Right ureteral calculus Status: Resolved Current/Historical Medications Scheduled Penicillin V Potassium (Veetids), 500 MG PO QID Allergies Coded Allergies: Morphine (Verified Allergy, Intermediate, HIVES, 12/12/16) Naproxen (Verified Allergy, Intermediate, HIVES, 12/12/16) Vital Signs Date Time Temp Pulse Resp B/P (MAP) Pulse Ox O2 Delivery O2 Flow Rate FiO2 12/12/16 14:46 86 18 96 12/12/16 14:00 36.7 114 18 150/100 95 Room Air Medications Administered Medications (Trade) Dose Ordered Sig/Agus Route Start Time Stop Time Status Last Admin Dose Admin Penicillin V Potassium (Veetids Tab) 500 mg NOW ONCE PO 12/12/16 14:30 12/12/16 14:31 DC 12/12/16 14:31 500 MG Departure Information Impression Primary Impression: Pain, dental Dispostion Home / Self-Care Condition GOOD Prescriptions Penicillin V Potassium (Veetids) 500 Mg Tab 500 MG PO QID for 10 Days, #40 TAB Prov: Shaq Campos PA-C 12/12/16 Referrals No Doctor, Assigned Forms HOME CARE DOCUMENTATION FORM, IMPORTANT VISIT INFORMATION Patient Instructions My [facility] Additional Instructions You were seen and evaluated today on an emergency basis only. This is not a substitute for, or an effort to provide, complete comprehensive medical care. It is not possible to recognize and treat all injuries or illnesses in a single emergency department visit. For this reason it is recommended that you followup with a dentist as soon as possible for definitive care. For baseline pain relief you may alternate ibuprofen and acetaminophen every 4 hours for pain control. Take 600 mg ibuprofen (Advil) and then 4 hours later take 1000 mg acetaminophen (Tylenol). Do not take more than 3000 mg acetaminophen in a single day. Consider Orajel [id number]. Take Pen-Vee K 500 mg 4 times daily for the next 10 days. You are welcome to return to the emergency department anytime with new, worsening, or concerning symptoms.
== END 2016-12-12 14:47 | disposition home or self-care (01) ==
LOC: C.EDB 13:59 → C.EDD 14:47
DX: K08.89 Other specified disorders of teeth and supporting structures (principal); F32.9 Major depressive disorder, single episode, unspecified

== ENCOUNTER 2017-05-05 18:48 | Emergency (ER) | payer OTHER ==
[~2017-05-05] VITALS: Ht 170.2 cm; Wt 88.5 kg
[~2017-05-05 18:48] MED LIST changes: +BENZ10GE38 PO; -FERR1TAB13 PO; -HYDR-5688 PO; +IBUP-1050 PO; +TRAM-10 PO
[2017-05-05 18:50] VITALS: TEMP 37; Ht 170.2 cm; Wt 88.5 kg
[2017-05-05] MEDS ORDERED: TRAMADOL HCL 50 MG HOME PACK PO ONE (19:15)
[2017-05-05] MEDS ORDERED: ONDANSETRON HOME PACK 4MG OD TAB PO ONE (19:15)
[2017-05-05] MEDS ORDERED: CLINDAMYCIN 150MG HOME PACK PO ONE (19:15)
--- NOTE | 2017-05-05 19:15 | EMERGENCY ROOM VISIT NOTE ---
History Report prepared by [place]: Louie Noland Under the Supervision of: Dr. Harjinder Mejia M.D. First contact with patient: 18:57 Chief Complaint: DENTAL PAIN Stated Complaint: ABSCESSED TOOTH, NAUSEA Nursing Triage Summary: Pt started with left upper tooth pain yesterday. Pt has hx of abscess and believes she has one around her wisdom tooth. Pt is scheduled for surgery on May 17 to have her wisdom teeth removed. History of Present Illness The patient is a 36 year old female who presents to the Emergency Room with complaints of persistent upper left tooth pain since yesterday. She currently rates her pain a 10/10 in severity. She notes facial swelling. She reports pain with opening her jaw. She notes nausea. She denies any fevers or vomiting. She reports normal menstrual cycles. She denies any chance of . She states that her spouse has a vasectomy. She reports a history of kidney stones. She has been seen in the ED for dental pain in the past. She is scheduled May 17, 2017 to have her four wisdom teeth extracted. She denies taking any antibiotics or Tramadol. Source of History: patient Onset: since yesterday Position: teeth (left upper) Symptom Intensity: 10/10 Timing: other (persistent) Associated Symptoms: + nausea, No fevers, No vomiting Note: She notes facial swelling. Review of Systems See HPI for pertinent positives & negatives. A total of 10 systems reviewed and were otherwise negative. Past Medical & Surgical Medical Problems: (1) Abdominal pain (2) Acute pyelonephritis (3) Closed right calcaneal fracture (4) De Quervain's tenosynovitis, right (5) Dental caries (6) Dentalgia (7) Depression (8) Flank pain (9) Flank pain (10) Flank pain, acute (11) Hydronephrosis of left kidney (12) Kidney stones (13) Left flank pain (14) Mesenteric adenitis (15) Otalgia of left ear (16) Otitis externa (17) Ovarian cyst (18) Pyelonephritis (19) Right ureteral calculus Old medical records were reviewed. Nurse's notes were reviewed and I agree with. Family History No significant family history Social History Smoking Status: Current Every Day Smoker Alcohol Use: none Drug Use: none Marital Status: single Housing Status: lives with family Occupation Status: employed Current/Historical Medications Scheduled Clindamycin HCl (Clindamycin HCl), 1 CAP PO QID Scheduled PRN Benzocaine (Dental) (Anbesol), 1 DOSE PO DIRECTED PRN for Pain Ibuprofen (Advil), 200-600 MG PO Q4H PRN for Pain Tramadol (Ultram), 1-2 TAB PO Q4H PRN for Pain Tramadol Hcl (Ultram), 1-2 TAB PO Q6H PRN for Pain Allergies Coded Allergies: Morphine (Verified Allergy, Intermediate, HIVES, 04/08/17) Naproxen (Verified Allergy, Intermediate, HIVES, 04/08/17) Physical Exam Vital Signs Date Time Temp Pulse Resp B/P (MAP) Pulse Ox O2 Delivery O2 Flow Rate FiO2 05/05/17 19:31 76 20 140/80 99 05/05/17 18:50 37.0 124 20 157/117 98 Room Air Physical Exam General: Non-ill appearing young female in no acute distress. Complains of tooth ache, holding left jaw. HEENT: Normal cephalic atraumatic. No significant facial swelling. Pupils are equal round and reactive to light. Extraocular movements are intact. Oropharynx is pink with moist mucous membranes. No swelling of the mouth lips or tongue. Poor dentition, with advanced dental caries particularly in the left upper jaw. No palpable abscess or fluctuance. Floor of mouth is soft. Neck: Supple with a midline trachea. No meningeal signs or stiffness, no JVD or bruits. No Stridor. Chest: Clear to auscultation bilaterally. No wheezes or rhonchi. No increased work of breathing. Heart: regular rate and rhythm. Abdomen: Soft nontender, nondistended without rebound guarding or rigidity. Extremities: No cyanosis clubbing or edema. No calf tenderness or assymetry Spine/Back. Non tender to palpation. No CVA tenderness Skin: Good turgor without rashes. Neurologic exam: Cranial nerves two through 12 are intact. Motor and sensation are intact and symmetrical throughout. Medical Decision & Procedures Medications Administered Medications (Trade) Dose Ordered Sig/Agus Route Start Time Stop Time Status Last Admin Dose Admin Clindamycin HCl (Cleocin 150MG Home Pack) 1 homepack UD ONCE PO 05/05/17 19:15 05/05/17 19:22 DC 05/05/17 19:26 1 HOMEPACK Tramadol HCl (Ultram Home Pack) 1 homepack UD ONCE PO 05/05/17 19:15 05/05/17 19:22 DC 05/05/17 19:27 1 HOMEPACK Ondansetron HCl (ZOFRAN ODT 4MG Home Pack) 1 homepack UD ONCE PO 05/05/17 19:15 05/05/17 19:22 DC 05/05/17 19:26 1 HOMEPACK ED Course 1903: Past medical records reviewed. The patient was evaluated in room C8, and a complete history and physical examination were performed. I discussed the results and treatment plan with the patient. I answered all pertaining questions that she had. She expressed understanding and verbalized agreement. The patient will be discharged home. 1914: Ordered Zofran 1 homepack PO, Tramadol HCl 1 homepack PO, and Clindamycin HCl 1 homepack PO Medical Decision Differentials include, but are not limited to: abscess, dental caries, and tooth ache. This patient comes in as described above. she has a toothache in her left upper jaw. She has had this chronically but it has gotten worse she scheduled to see an oral surgeon at the beginning of May. On exam, she has no fever. she has no facial swelling. She has no evidence of abscess on exam but she does have advanced dental caries and does need this tooth removed. She has no other complaints. She will be started on clindamycin which she has had before she was given a home pack as well as prescription. For pain, she can use Ultram/ tramadol she is also had this before without any problems. She was given home pack as well as a prescription she was encouraged to return if: fever or chills , worsening of symptoms, increasing pain, any new problems or concerns. She was happy to plan and discharged to home. [place] Drug Monitoring Program Search Results: no issues identified Medication Reconcilliation Current Medication List: was personally reviewed by me Blood Pressure Screening Patient's blood pressure: Elevated blood pressure Blood pressure disposition: Elevated BP felt to be situational Impression Primary Impression: Tooth ache Additional Impression: Dental caries Scribe Attestation The scribe's documentation has been prepared under my direction and personally reviewed by me in its entirety. I confirm that the note above accurately reflects all work, treatment, procedures, and medical decision making performed by me. Departure Information Dispostion Home / Self-Care Prescriptions Tramadol Hcl (ULTRAM) 50 Mg Tab 1-2 TAB PO Q6H Y for Pain for 7 Days, #30 TAB Prov: Harjidner Mejia M.D. 05/05/17 Clindamycin HCl (Clindamycin HCl) 150 Mg Cap 1 CAP PO QID for 10 Days, #40 CAP Prov: Harjinder Mejia M.D. 05/05/17 Referrals Beckie Valdez CRNP (PCP) Forms HOME CARE DOCUMENTATION FORM, IMPORTANT VISIT INFORMATION Patient Instructions My [facility] Additional Instructions Rest Drink plenty of fluids Use Tramadol 50 mg, 1-2 pills every 6 hours as needed. Take with food. Tramadol may make you drowsy and do not take before drinking, driving, working. Do not take with any other medications that could be sedating or any other narcotic pain medicines Use clindamycin 150 mg, 4 times a day for the next 10 daysantibiotic Your appointment with your oral surgeon/dentist Return to the ER if: Increasing pain, fever chills, worsening symptoms, any new problems or concerns. Problem Qualifiers
[2017-05-05] MEDS ORDERED: TRAM-453 PO (19:19)
[2017-05-05] MEDS ORDERED: CLIN1CAP51 PO (19:19)
[2017-05-05 19:31] VITALS: BP 140/80; PULSE 76; O2SAT 99
== END 2017-05-05 19:32 | disposition home or self-care (01) ==
LOC: C.EDB 18:49 → C.EDC 19:32
DX: K08.89 Other specified disorders of teeth and supporting structures (principal); K02.9 Dental caries, unspecified; F32.9 Major depressive disorder, single episode, unspecified; F17.200 Nicotine dependence, unspecified, uncomplicated; Z87.442 Personal history of urinary calculi; Z88.5 Allergy status to narcotic agent; Z88.6 Allergy status to analgesic agent

== ENCOUNTER 2017-06-24 16:17 | Emergency (ER) | payer OTHER ==
[~2017-06-24] VITALS: Ht 170.2 cm; Wt 88.9 kg
[2017-06-24 16:24] VITALS: Ht 170.2 cm; Wt 88.9 kg
[2017-06-24] MEDS ORDERED: KETOROLAC TROMETHAMINE 30 MG/ML VIAL IV STA ×2 (16:31→17:37)
[2017-06-24] MEDS ORDERED: FENTANYL CITRATE INJ 50 MCG/1 ML 2 ML VIAL IV STA ×2 (16:31→17:37)
[2017-06-24] MEDS ORDERED: ONDANSETRON INJ 2 MG/ML 2 ML VIAL IV STA (16:31)
[2017-06-24] MEDS ORDERED: SODIUM CHLORIDE 0.9% 1000ML 2,000 ML IV STA (16:31)
--- NOTE | 2017-06-24 16:42 | EMERGENCY ROOM VISIT NOTE ---
History Report prepared by Irving: Isaias Rodriguez Under the Supervision of: Dr. Darnell Cardona M.D. First contact with patient: 16:29 Chief Complaint: KIDNEY STONE Stated Complaint: R KIDNEY HAS BEEN HURTING SINCE ABOUT 8 AM TODAY History of Present Illness The patient is a 36 year old female who presents to the Emergency Room with complaints of worsening right-sided flank pain that began 8 hours ago while the patient was at work. Patient states that she took Tylenol extra strength for the pain. She states that she also has chills. She states that the chills were not resolved after she took a hot bath. She states that after she got out of the bath she got nauseas. Patient states that she has a history of kidney stones. She states that her kidney's are "calcified" and that her last kidney stone was "1-2 years ago". Patient states that her urologist is Dr. Gaytan. Patient has a history of 8 pregnancies. Patient denies any chance of . She states that she is currently on her menstrual period. Patient states that she "felt fine" yesterday. Patient denies taking any daily medications. Patient denies any fevers or congestion. Source of History: patient Onset: 8 hours ago Position: abdomen (Right flank) Timing: worsening Associated Symptoms: + chills, + nausea, No fevers Review of Systems See HPI for pertinent positives and negatives. A total of ten systems were reviewed and were otherwise negative. Past Medical & Surgical Medical Problems: (1) Abdominal pain (2) Acute pyelonephritis (3) Closed right calcaneal fracture (4) De Quervain's tenosynovitis, right (5) Dental caries (6) Dentalgia (7) Depression (8) Flank pain (9) Flank pain (10) Flank pain, acute (11) Hydronephrosis of left kidney (12) Kidney stones (13) Left flank pain (14) Mesenteric adenitis (15) Otalgia of left ear (16) Otitis externa (17) Ovarian cyst (18) Pyelonephritis (19) Right ureteral calculus Family History Diabetes mellitus Gallbladder disease Heart disease Hypertension Social History Smoking Status: Current Every Day Smoker Alcohol Use: none Drug Use: none Marital Status: single Housing Status: lives with family Occupation Status: employed Current/Historical Medications Scheduled Ondasetron Odt (Zofran Odt), 4 MG SL Q6H Allergies Coded Allergies: Morphine (Verified Allergy, Intermediate, HIVES, 06/24/17) Naproxen (Verified Allergy, Intermediate, HIVES, 06/24/17) Physical Exam Vital Signs Date Time Temp Pulse Resp B/P (MAP) Pulse Ox O2 Delivery O2 Flow Rate FiO2 06/24/17 19:42 37.4 96 20 129/82 98 06/24/17 18:41 38.3 105 20 97 Room Air 06/24/17 18:06 37.3 110 18 129/82 97 Room Air 06/24/17 17:30 105 06/24/17 16:24 38.5 138 20 145/88 100 Room Air Physical Exam GENERAL: Awake, alert, uncomfortable, in no distress HENT: Normocephalic, atraumatic. Oropharynx unremarkable other than dry mucous membranes. EYES: Normal conjunctiva. Sclera non-icteric. NECK: Supple. No nuchal rigidity. FROM. No JVD. RESPIRATORY: Clear to auscultation. CARDIAC: Regular rate, normal rhythm. Extremities warm and well perfused. Pulses equal. ABDOMEN: Soft, non-distended. Mild right flank tenderness to palpation. No rebound or guarding. No masses. RECTAL: Deferred. MUSCULOSKELETAL: Chest examination reveals no tenderness. The back is symmetrical on inspection without obvious abnormality. There is no CVA tenderness to palpation. No joint edema. LOWER EXTREMITIES: Calves are equal size bilaterally and non-tender. No edema. No discoloration. NEURO: Normal sensorium. No sensory or motor deficits noted. SKIN: No rash or jaundice noted. Medical Decision & Procedures ER Provider Diagnostic Interpretation: Radiology results as stated below per my review and radiologist interpretation: ABDOMEN AND PELVIS CT WITH IV CONTRAST CT DOSE: 436.55 mGy.cm HISTORY: Acute right-sided flank pain Right flank pain, h/o renal stones TECHNIQUE: Multiaxial CT images of the abdomen and pelvis were performed following the use of intravenous contrast. A dose lowering technique was utilized adhering to the principles of ALARA. COMPARISON STUDY: Renal ultrasound 09/06/2016, CT abdomen and pelvis 04/06/2016 FINDINGS: Groundglass opacities of the basal lower lobes suggest atelectasis. 7 mm perifissural lymph node at the level of the left lung base. There is no pneumatosis or pneumoperitoneum. Imaged inferior cardiac chambers are unremarkable. Nonenlarged epicardial lymph nodes are likely physiologic. Gallbladder is mildly contracted. The liver, spleen, pancreas and adrenal glands are within normal limits. Bilateral medullary nephrocalcinosis redemonstrated. Low attenuating lesions of the kidneys bilaterally measuring up to 7 mm on the right suggest renal cysts. No ureteral calculi or obstructive uropathy. Ureters and bladder are unremarkable. Follicular changes about the bilateral ovaries. Uterus is unremarkable. Normal-appearing aorta and IVC. No bulky adenopathy. No bowel obstruction or focal bowel wall thickening. Normal-appearing appendix. Soft tissues and breast parenchyma appear unremarkable. The bones appear intact. IMPRESSION: 1. Medullary nephrocalcinosis without ureteral calculi or obstructive uropathy. 2. No bowel obstruction or focal bowel wall thickening. Normal appendix. Electronically signed by: Harrison Bryan M.D. 06/24/2017 6:26 PM Laboratory Results 06/24/17 16:55 Red Blood Count 4.75, Mean Corpuscular Volume 82.9, Mean Corpuscular Hemoglobin 26.7, Mean Corpuscular Hemoglobin Concent 32.2, Mean Platelet Volume 8.7, Neutrophils (%) (Auto) 75.9, Lymphocytes (%) (Auto) 16.4, Monocytes (%) (Auto) 6.9, Eosinophils (%) (Auto) 0.4, Basophils (%) (Auto) 0.4, Neutrophils # (Auto) 4.09, Lymphocytes # (Auto) 0.88, Monocytes # (Auto) 0.37, Eosinophils # (Auto) 0.02, Basophils # (Auto) 0.02 06/24/17 16:55 Test 06/24/17 16:55 06/24/17 17:55 White Blood Count 5.38 K/uL (4.8-10.8) Red Blood Count 4.75 M/uL (4.2-5.4) Hemoglobin 12.7 g/dL (12.0-16.0) Hematocrit 39.4 % (37-47) Mean Corpuscular Volume 82.9 fL (80-100) Mean Corpuscular Hemoglobin 26.7 pg (25-34) Mean Corpuscular Hemoglobin Concent 32.2 g/dl (32-36) Platelet Count 227 K/uL (130-400) Mean Platelet Volume 8.7 fL (7.4-10.4) Neutrophils (%) (Auto) 75.9 % Lymphocytes (%) (Auto) 16.4 % Monocytes (%) (Auto) 6.9 % Eosinophils (%) (Auto) 0.4 % Basophils (%) (Auto) 0.4 % Neutrophils # (Auto) 4.09 K/uL (1.4-6.5) Lymphocytes # (Auto) 0.88 K/uL (1.2-3.4) Monocytes # (Auto) 0.37 K/uL (0.11-0.59) Eosinophils # (Auto) 0.02 K/uL (0-0.5) Basophils # (Auto) 0.02 K/uL (0-0.2) RDW Standard Deviation 51.1 fL (36.4-46.3) RDW Coefficient of Variation 16.8 % (11.5-14.5) Immature Granulocyte % (Auto) 0.0 % Immature Granulocyte # (Auto) 0.00 K/uL (0.00-0.02) Anion Gap 6.0 mmol/L (3-11) Est Creatinine Clear Calc Drug Dose 79.6 ml/min Estimated GFR () 72.9 Estimated GFR (Non- 62.9 BUN/Creatinine Ratio 7.3 (10-20) Calcium Level 9.0 mg/dl (8.5-10.1) Total Bilirubin 0.5 mg/dl (0.2-1) Direct Bilirubin 0.2 mg/dl (0-0.2) Aspartate Amino Transf (AST/SGOT) 16 U/L (15-37) Alanine Aminotransferase (ALT/SGPT) 26 U/L (12-78) Alkaline Phosphatase 67 U/L (45-117) Total Protein 7.8 gm/dl (6.4-8.2) Albumin 3.9 gm/dl (3.4-5.0) Lipase 151 U/L (73-393) Human Chorionic Gonadotropin, Qual NEG (NEG) Urine Color YELLOW Urine Appearance CLEAR (CLEAR) Urine pH 7.0 (4.5-7.5) Urine Specific [place] 1.015 (1.000-1.030) Urine Protein TRACE (NEG) Urine Glucose (UA) NEG (NEG) Urine Ketones NEG (NEG) Urine Occult Blood 3+ (NEG) Urine Nitrite NEG (NEG) Urine Bilirubin NEG (NEG) Urine Urobilinogen NEG (NEG) Urine Leukocyte Esterase TRACE (NEG) Urine WBC (Auto) 1-5 /hpf (0-5) Urine RBC (Auto) >30 /hpf (0-4) Urine Hyaline Casts (Auto) 1-5 /lpf (0-5) Urine Epithelial Cells (Auto) 5-10 /lpf (0-5) Urine Bacteria (Auto) NEG (NEG) Laboratory results reviewed by me Medications Administered Medications (Trade) Dose Ordered Sig/Agus Route Start Time Stop Time Status Last Admin Dose Admin Sodium Chloride 2,000 ml @ 999 mls/hr Q2H1M STAT IV 06/24/17 16:31 06/24/17 18:31 DC 06/24/17 16:58 999 MLS/HR Ketorolac Tromethamine (Toradol Inj) 15 mg NOW STAT IV 06/24/17 16:31 06/24/17 16:36 DC 06/24/17 16:59 15 MG Fentanyl Citrate (Fentanyl Inj) 50 mcg NOW STAT IV 06/24/17 16:31 06/24/17 16:36 DC 06/24/17 17:00 50 MCG Ondansetron HCl (Zofran Inj) 4 mg NOW STAT IV 06/24/17 16:31 06/24/17 16:36 DC 06/24/17 16:58 4 MG Fentanyl Citrate (Fentanyl Inj) 50 mcg NOW STAT IV 06/24/17 17:37 06/24/17 17:38 DC 06/24/17 17:45 50 MCG Ketorolac Tromethamine (Toradol Inj) 15 mg NOW STAT IV 06/24/17 17:37 06/24/17 17:38 DC 06/24/17 17:44 15 MG Acetaminophen (Tylenol Tab) 1,000 mg NOW STAT PO 06/24/17 19:27 06/24/17 19:29 DC 06/24/17 19:27 1,000 MG ED Course 1623: The patient was evaluated in room C12. A complete history and physical exam was performed. 0: I reassessed the patient. She states that she is feeling better. 1937: I reevaluated the patient. Discussed results and discharge instructions. She verbalized understanding and agreement. The patient is ready for discharge. Medical Decision I reviewed the patient's past medical history, medications, and the nursing notes as described above. Differential diagnosis: Etiologies such as renal colic, appendicitis, diverticulitis, mesenteric ischemia, aortic pathology, infections, inflammatory bowel disease, PUD, biliary pathology, UTI, as well as others were entertained. The patient is a 36-year-old woman with a past medical history of renal stones presents emergency department with acute onset right flank pain per hpi. On arrival patient is uncomfortable but no acute distress, febrile to 38.5 with HR 130s and otherwise stable vital signs. On exam the patient has mild right flank tenderness. Labs unremarkable including WBC within normal limits. UA negative for infection however does have blood in the setting of the patient's current menstrual cycle. CT of the abdomen pelvis negative for any renal stones or pathology to explain the symptoms otherwise. Patient reevaluated and feeling improved after IV fluids, Toradol, fentanyl. Patient denies any vaginal symptoms such as discharge, odor, pain and also has no lower abdominal tenderness. She preferred to defer the pelvic exam or pelvic ultrasound at this time. Unclear etiology to the patient's symptoms however possibly may be due to early viral illness. Will follow up with her PCP. Findings and plan for follow-up reviewed with patient. Patient agreeable and d/c'd per discharge instructions. Medication Reconcilliation Current Medication List: was personally reviewed by me Blood Pressure Screening Patient's blood pressure: Normal blood pressure Blood pressure disposition: Did not require urgent referral Impression Primary Impression: Right flank pain Scribe Attestation The scribe's documentation has been prepared under my direction and personally reviewed by me in its entirety. I confirm that the note above accurately reflects all work, treatment, procedures, and medical decision making performed by me. Departure Information Dispostion Home / Self-Care Prescriptions Ondasetron Odt (ZOFRAN ODT) 4 Mg Tab 4 MG SL Q6H for Nausea, #10 TAB Prov: Darnell Cardona M.D. 06/24/17 Referrals Beckie Valdez CRNP (PCP) Forms HOME CARE DOCUMENTATION FORM, IMPORTANT VISIT INFORMATION Patient Instructions ED Dehydration, ED Flank Pain Uncertain Cause, ED Viral Syndrome, My [facility] Additional Instructions Please follow up with your primary care physician in the next 1-3 days for re- evaluation. The cause of your symptoms is unclear at this time but may possibly due to an early viral illness. Otherwise, your exam, lab results, and CT scan did not show signs of an emergent condition at this time. Acetaminophen or ibuprofen for pain and fevers as needed. Zofran as needed for nausea Drink plenty of fluids to ensure hydration. Return to the emergency department for worsening symptoms as described in the accompanying instructions. Work Instructions Return To Work: 2 days
[2017-06-24] MEDS ORDERED: OPTIRAY 320 IV PRN (16:45)
[2017-06-24 17:13] LABS: BASO % 0.4 %; BASO ABS # 0.02 K/uL (0-0.2); EOS % 0.4 %; EOS ABS # 0.02 K/uL (0-0.5); HEMATOCRIT 39.4 % (37-47); HEMOGLOBIN 12.7 g/dL (12.0-16.0); LYMPH % 16.4 %; LYMPH ABS # 0.88 K/uL (1.2-3.4); MEAN CELL VOLUME 82.9 fL (80-100); MEAN CORPUSCULAR HEMOGLOBIN 26.7 pg (25-34); MEAN CORPUSCULAR HGB CONC 32.2 g/dl (32-36); MEAN PLATELET VOLUME 8.7 fL (7.4-10.4); MONO % 6.9 %; MONO ABS # 0.37 K/uL (0.11-0.59); NEUT % 75.9 %; NEUT ABS # 4.09 K/uL (1.4-6.5); PLATELET COUNT 227 K/uL (130-400); RED CELL DISTRIBUTION WIDTH CV 16.8 % (11.5-14.5); RED CELL DISTRIBUTION WIDTH SD 51.1 fL (36.4-46.3); WHITE BLOOD COUNT 5.38 K/uL (4.8-10.8)
[2017-06-24 17:33] LABS: ALBUMIN 3.9 gm/dl (3.4-5.0); CREATININE 1.13 mg/dl (0.60-1.20); POTASSIUM 3.3 mmol/L (3.5-5.1)
[2017-06-24 17:36] LABS: TOTAL PROTEIN 7.8 gm/dl (6.4-8.2)
--- NOTE | 2017-06-24 18:28 | DIAGNOSTIC IMAGING REPORT ---
ABDOMEN AND PELVIS CT WITH IV CONTRAST CT DOSE: 436.55 mGy.cm HISTORY: Acute right-sided flank pain Right flank pain, h/o renal stones TECHNIQUE: Multiaxial CT images of the abdomen and pelvis were performed following the use of intravenous contrast. A dose lowering technique was utilized adhering to the principles of ALARA. COMPARISON STUDY: Renal ultrasound 09/06/2016, CT abdomen and pelvis 04/06/2016 FINDINGS: Groundglass opacities of the basal lower lobes suggest atelectasis. 7 mm perifissural lymph node at the level of the left lung base. There is no pneumatosis or pneumoperitoneum. Imaged inferior cardiac chambers are unremarkable. Nonenlarged epicardial lymph nodes are likely physiologic. Gallbladder is mildly contracted. The liver, spleen, pancreas and adrenal glands are within normal limits. Bilateral medullary nephrocalcinosis redemonstrated. Low attenuating lesions of the kidneys bilaterally measuring up to 7 mm on the right suggest renal cysts. No ureteral calculi or obstructive uropathy. Ureters and bladder are unremarkable. Follicular changes about the bilateral ovaries. Uterus is unremarkable. Normal-appearing aorta and IVC. No bulky adenopathy. No bowel obstruction or focal bowel wall thickening. Normal-appearing appendix. Soft tissues and breast parenchyma appear unremarkable. The bones appear intact. IMPRESSION: 1. Medullary nephrocalcinosis without ureteral calculi or obstructive uropathy. 2. No bowel obstruction or focal bowel wall thickening. Normal appendix. Electronically signed by: Harrison Bryan M.D. 06/24/2017 6:26 PM Dictated Date/Time: 06/24/2017 6:19 PM
[2017-06-24] MEDS ORDERED: ACETAMINOPHEN 500 MG TAB PO STA (19:27)
[2017-06-24] MEDS ORDERED: ONDA4TAB10 SL (19:31)
[2017-06-24 19:42] VITALS: BP 129/82; PULSE 96; TEMP 37.4; O2SAT 98
== END 2017-06-24 19:43 | disposition home or self-care (01) ==
LOC: C.EDB 16:19 → C.EDC 19:43
DX: R10.11 Right upper quadrant pain (principal); R10.31 Right lower quadrant pain; F17.200 Nicotine dependence, unspecified, uncomplicated; Z87.442 Personal history of urinary calculi; Z88.5 Allergy status to narcotic agent; Z88.6 Allergy status to analgesic agent

== ENCOUNTER 2019-09-22 14:33 | Inpatient (IN) ==
--- OUTSIDE RECORDS SUMMARY | 2019-09-22 14:35 | External Medical Summary | Continuity of Care Document ---
:1980 Author Name Chema Mojica, Provider Address Unavailable Unavailable , Care Team Providers Name Role Phone Cortney Reed M.D. Unavailable [email or web address] ORELLANA M.D. Unavailable Unavailable Jun NIÑO M.D. Unavailable Unavailable Seth [email or web address] Unavailable Unavailable Unavailable Assessments Assessed Problems:Left leg injury, initial encounter Problems Nonvenomous Insect Bite (E906.4) Grand Multiparity - Antepartum Condition Or Complication (65 9.43) History of Placenta Abruptio - Antepartu m Condition Or Prior Complicated Delivery (641.23) Status: Resolved Gynecologic Services Intrauterine Device (IUD) Insertion Fever (780.60) (R50.9) Genital warts (078.11) (A63.0) Counseling for initiation of control method (V25.02) ( Z30.09) Counseling for initiation of control method (V25.02) ( Z30.09) Antepartum complication of (646.93) (O26.90) Ureteral stone (592.1) (N20.1) Migraines (346.90) (G43.909) Encounter for screening for cardiovascular disorders (V81.2) (Z13.6) Rt flank pain (789.09) (R10.9) Abnormal brain scan (794.09) (R94.02) Abnormal menses (626.9) (N92.6) Insomnia (780.52) (G47.00) Medullary sponge kidney (753.17) (Q61.5) Nephrocalcinosis (275.49) (E83.59) Depression (311) (F32.9) Nephrolithiasis (592.0) (N20.0) Hand pain, right (729.5) (M79.641) Left ovarian cyst (620.2) (N83.202) Right flank pain (789.09) (R10.9) De Quervain's tenosynovitis (727.04) (M65.4) Encounter for IUD removal (V25.12) (Z30.432) Back pain (724.5) (M54.9) Acute sinusitis (461.9) (J01.90) Acute otitis externa (380.10) (H60.509) Otalgia of left ear (388.70) (H92.02) Acute otitis media (382.9) (H66.90) Mesenteric adenitis (289.2) (I88.0) Left flank pain (789.09) (R10.9) Pyelonephritis (590.80) (N12) Abdominal pain (789.00) (R10.9) Nausea & vomiting (787.01) (R11.2) Headache (784.0) (R51) Dysuria (788.1) (R30.0) Flank pain (789.09) (R10.9) Hydronephrosis of left kidney (591) (N13.30) Suprapubic pain (789.09) (R10.2) Vaginal discharge (623.5) (N89.8) Vaginal disorder (623.9) (N89.9) UTI (urinary tract infection) (599.0) (N39.0) Acute right flank pain (789.09) (R10.9) Heel fracture (825.0) (S92.009A) Fracture of calcaneus, closed (825.0) (S92.009A) Supervision of normal (V22.1) (Z34.90) Abnormal glucose tolerance test in , antepartum (64 8.83) (O99.810) Urinary symptom or sign (788.99) (R39.9) Left leg injury, initial encounter (959.7) (S89.92XA) Allergies and Adverse Reactions Morphine Derivatives (Allergy) Reaction: Hives Naproxen TABS (Allergy) Reaction: Hives Medications Multiple Vitamin TABS Refills: 0 traMADol HCl - 50 MG Oral Tablet; TAKE 1 OR 2 TABLETS BY MOUTH 3 TIMES DAILY NEEDED FOR PAIN Yunior Reed Start: 16-May-2018 Quantity: 20 Refills: 0 predniSONE 50 MG Oral Tablet; TAKE 1 TABLET DAILY D IRECTED. Yunior Reed Start: 16-May-2018 Quantity: 5 Refills: 0 Procedures History of Renal Lithotripsy Status: Com pleted History of Laparoscopy (Diagnostic) Stat us: Completed Gynecologic Services Intrauterine Device (IUD) Insertion History of Cystoscopy With Insertion Of Ureteral Stent Status: Completed Counseling for initiation of control method Counseling for initiation of control method Supervision of normal Immunizations Immunizations not documented Family History Mother Family history of Heart Disease (V17.49) Status: Active Unknown Family Member Family history of Diabetes Mellitus (V18.0) Status: Active Comments: Family History Social History - Smoking Status Smokes tobacco daily Interventions Medication ChangespredniSONE 50 MG Oral Tablet - StarttraMADol HCl - 50 MG Oral Tablet - StartDiscussion/Summary1) LLE injury:Unclear mechanism.Pt is showing a great deal of discomfort nevertheless.Based on the injury and the exam, no x- rays ordered at this time.?sprain.For now, 50mg prednisone X 5 days and a FEW tramadols.Ice and elevation.Monitor for red flags.RTO if no improvement. Instructions provided (see below).Pt understood and agreed with the plan. Plan of Treatment Planned Observations Planned Goals not documented Results No Known Results Results not documented Encounters Appointment; Cortney Reed M.D. 16-May-2018 15:30 Encounter Diagnosis: Problem not documented
--- OUTSIDE RECORDS SUMMARY | 2019-09-22 14:35 | External Medical Summary | Continuity of Care Document ---
:1980 Author Name Chema Mojica, Provider Address Unavailable Unavailable , Care Team Providers Name Role Phone Cortney Reed M.D. Unavailable [email or web address] OLE ORELLANA M.D. Unavailable Unavailable Jun NIÑO M.D. Unavailable Unavailable Seth Gaytan [email or web address] Unavailable Unavailable Unavailable Assessments Assessed Problems:Left leg injury, initial encounter Problems Nonvenomous Insect Bite (E906.4) Grand Multiparity - Antepartum Condition Or Complication (65 9.43) History of Placenta Abruptio - Antepartu m Condition Or Prior Complicated Delivery (641.23) Status: Resolved Gynecologic Services Intrauterine Device (IUD) Insertion Fever (780.60) (R50.9) Genital warts (078.11) (A63.0) Counseling for initiation of control method (V25.02) ( Z30.09) Left ovarian cyst (620.2) (N83.202) Back pain (724.5) (M54.9) De Quervain's tenosynovitis (727.04) (M65.4) Right flank pain (789.09) (R10.9) Hand pain, right (729.5) (M79.641) Depression (311) (F32.9) Nephrocalcinosis (275.49) (E83.59) Medullary sponge kidney (753.17) (Q61.5) Insomnia (780.52) (G47.00) Abnormal menses (626.9) (N92.6) Abnormal brain scan (794.09) (R94.02) Rt flank pain (789.09) (R10.9) Migraines (346.90) (G43.909) Ureteral stone (592.1) (N20.1) Antepartum complication of (646.93) (O26.90) Counseling for initiation of control method (V25.02) ( Z30.09) Left leg injury, initial encounter (959.7) (S89.92XA) Urinary symptom or sign (788.99) (R39.9) Abnormal glucose tolerance test in , antepartum (64 8.83) (O99.810) Supervision of normal (V22.1) (Z34.90) Fracture of calcaneus, closed (825.0) (S92.009A) Heel fracture (825.0) (S92.009A) Acute right flank pain (789.09) (R10.9) UTI (urinary tract infection) (599.0) (N39.0) Vaginal disorder (623.9) (N89.9) Vaginal discharge (623.5) (N89.8) Suprapubic pain (789.09) (R10.2) Hydronephrosis of left kidney (591) (N13.30) Flank pain (789.09) (R10.9) Dysuria (788.1) (R30.0) Headache (784.0) (R51) Nausea & vomiting (787.01) (R11.2) Abdominal pain (789.00) (R10.9) Pyelonephritis (590.80) (N12) Left flank pain (789.09) (R10.9) Mesenteric adenitis (289.2) (I88.0) Acute otitis media (382.9) (H66.90) Otalgia of left ear (388.70) (H92.02) Acute otitis externa (380.10) (H60.509) Acute sinusitis (461.9) (J01.90) Encounter for IUD removal (V25.12) (Z30.432) Nephrolithiasis (592.0) (N20.0) Encounter for screening for cardiovascular disorders (V81.2) (Z13.6) Allergies and Adverse Reactions Morphine Derivatives (Allergy) Reaction: Hives Naproxen TABS (Allergy) Reaction: Hives Medications predniSONE 50 MG Oral Tablet; TAKE 1 TABLET DAILY D Yunior Sheppard Start: 16-May-2018 Quantity: 5 Refills: 0 traMADol HCl - 50 MG Oral Tablet; TAKE 1 OR 2 TABLETS BY MOUTH 3 TIMES DAILY NEEDED FOR PAIN Yunior Reed Start: 16-May-2018 Quantity: 20 Refills: 0 Multiple Vitamin TABS Refills: 0 Procedures History of Renal Lithotripsy [...]
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
[2019-09-22] MEDS ORDERED: KETOROLAC 30 MG/ML VIAL IV STA (14:54)
[2019-09-22] MEDS ORDERED: HYDROmorphone INJ 0.5 MG/0.5 ML SYR IV STA (14:54)
[2019-09-22] MEDS ORDERED: SODIUM CHLORIDE 0.9% 1000ML 1,000 ML IV ONE ×2 (14:54→17:49)
[2019-09-22 15:01] LABS: Basophils # (auto) 0.04 K/uL (0-0.2); Basophils % (auto) 0.3 %; Eosinophils # (auto) 0.08 K/uL (0-0.5); Eosinophils % (auto) 0.6 %; Hematocrit (blood only) 34.8 % (37-47); Hemoglobin 10.3 g/dL (12.0-16.0); Immature Granulocytes # (auto) 0.04 K/uL (0.00-0.02); Immature Granulocytes % (auto) 0.3 %; Lymphocytes % (auto) 16.1 %; Mean Corpuscular Hemoglobin 22.2 pg (25-34); Mean Corpuscular Hgb Conc 29.6 g/dL (32-36); Mean Platelet Volume 8.8 fL (7.4-10.4); Monocytes # (auto) 0.93 K/uL (0.11-0.59); Monocytes % (auto) 6.5 %; Neutrophils # (auto) 10.87 K/uL (1.4-6.5); Neutrophils % (auto) 76.2 %; Platelet Count 415 K/uL (130-400); RDW Coefficient of Variation 17.2 % (11.5-14.5); RDW Standard Deviation 46.9 fL (36.4-46.3); Red Blood Count 4.64 M/uL (4.2-5.4); White Blood Count 14.26 K/uL (4.8-10.8)
[2019-09-22] MEDS ORDERED: ONDANSETRON INJ 2 MG/ML 2 ML VIAL ONE (15:10)
[2019-09-22 15:18] LABS: Albumin Level 3.5 gm/dl (3.4-5.0); BUN Creatinine Ratio 10.9 (10-20); Creatinine Clr Calc Pharmacy 76.6 ml/min; Est GFR (African American) 69.2; Est GFR (Non-African American) 59.7; Potassium 3.8 mmol/L (3.5-5.1)
[2019-09-22 15:21] LABS: Albumin Globulin Ratio 0.8 (0.9-2); Bilirubin,Total 0.3 mg/dl (0.2-1); Globulin 4.3 gm/dl (2.5-4.0); Total Protein 7.8 gm/dl (6.4-8.2)
--- NOTE | 2019-09-22 15:51 | CT Scan Report ---
CT OF THE ABDOMEN AND PELVIS WITHOUT CONTRAST CLINICAL HISTORY: L sided flank pain; h/o stones COMPARISON STUDY: CT of the abdomen and pelvis January 22, 2018. TECHNIQUE: Axial images of the abdomen and pelvis were obtained without IV contrast. Images were revi ewed in the axial, sagittal, and coronal planes. Automated exposure control was utilized for the raj dy. A dose lowering technique was utilized adhering to the principles of ALARA. FINDINGS: Lung bases are unremarkable. Note is made of moderate left hydroureteronephrosis. There is mild left perinephric infiltration. There are multiple distal left ureteral calculi, including a 6 mm calculus at the ureterovesical junction which protrudes into the bladder. Additional distal left ure teral calculi measure up to 6 mm as well. The course of the right ureter is difficult to follow howev er a 5 mm right pelvic calcification likely reflects a nonobstructing callus. Extensive bilateral faith al calculi are noted. The appearance suggests medullary nephrocalcinosis. These calculi measure up to 1 cm. There is no right hydronephrosis. Evaluation of the remainder of the abdomen and pelvis is sub optimal on this unenhanced exam. The liver, spleen, adrenal glands and pancreas are normal. There is no evidence for a bowel obstruction. The appendix is normal. There is no lymphadenopathy. No suspicio us osseous lesions are noted. IMPRESSION: 1. Numerous distal left ureteral calculi that measure up to 6 mm. Resultant moderate left hydroureter onephrosis. 2. 5 mm right pelvic calcification likely reflects a nonobstructing calculus. No right hydronephrosis . 3. 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 ACT 112: Negative or not required by law. Electronically signed by: Abiodun Horowitz M.D. 09/22/2019 3:50 PM
[2019-09-22 16:31] LABS: Pregnancy Test, Urine Negative (Negative)
[2019-09-22 16:33] LABS: Appearance Urine Cloudy (Clear); Bacteria Urine Automated 1+ (Negative); Bilirubin Urine Negative (Negative); Blood Urine 3+ (Negative); Color Urine Yellow; Glucose Urine UA Negative (Negative); Ketones Urine Negative (Negative); Leukocyte Esterase Urine 2+ (Negative); Nitrite Urine Positive (Negative); Protein Urine Trace (Negative); RBC Urine Automated >30 /hpf (0-4); Specific Gravity Urine 1.013 (1.000-1.030); Urobilinogen Urine Negative (Negative); WBC Urine Automated >30 /hpf (0-5)
[2019-09-22] MEDS ORDERED: cefTRIAXone SODIUM 2,000 MG/70 ML BAG IV STA (16:52)
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
[2019-09-22] MEDS ORDERED: ACETAMINOPHEN 325 MG TAB PO PRN (18:57)
[2019-09-22] MEDS: HYDROmorphone INJ 0.5 MG/0.5 ML SYR IV PRN ×2 (19:29→22:22)
[2019-09-22] MEDS: KETOROLAC TROMETHAMINE 15 MG/ML VIAL IV PRN (19:29)
[2019-09-22] MEDS: SODIUM CHLOR 0.45% + 20MEQ KCL 20 MEQ/1,000 ML BAG IV SCH (20:49)
[2019-09-23] MEDS: ONDANSETRON INJ 2 MG/ML 2 ML VIAL IV PRN ×3 (00:36→12:59)
[2019-09-23] MEDS: HYDROmorphone INJ 0.5 MG/0.5 ML SYR IV PRN ×6 (00:36→12:59)
[2019-09-23] MEDS: SODIUM CHLOR 0.45% + 20MEQ KCL 20 MEQ/1,000 ML BAG IV SCH ×3 (01:59→13:16)
[2019-09-23] MEDS: KETOROLAC TROMETHAMINE 15 MG/ML VIAL IV PRN ×2 (03:10→08:59)
[2019-09-23 07:11] LABS: Basophils # (auto) 0.02 K/uL (0-0.2); Basophils % (auto) 0.2 %; Eosinophils # (auto) 0.13 K/uL (0-0.5); Eosinophils % (auto) 1.4 %; Hematocrit (blood only) 29.8 % (37-47); Hemoglobin 8.7 g/dL (12.0-16.0); Immature Granulocytes # (auto) 0.01 K/uL (0.00-0.02); Immature Granulocytes % (auto) 0.1 %; Lymphocytes # (auto) 3.61 K/uL (1.2-3.4); Lymphocytes % (auto) 39.6 %; Mean Corpuscular Hemoglobin 21.6 pg (25-34); Mean Corpuscular Hgb Conc 29.2 g/dL (32-36); Mean Corpuscular Volume 73.9 fL (80-100); Mean Platelet Volume 8.8 fL (7.4-10.4); Monocytes # (auto) 0.77 K/uL (0.11-0.59); Monocytes % (auto) 8.5 %; Neutrophils # (auto) 4.57 K/uL (1.4-6.5); Neutrophils % (auto) 50.2 %; Platelet Count 311 K/uL (130-400); RDW Coefficient of Variation 16.9 % (11.5-14.5); RDW Standard Deviation 46.2 fL (36.4-46.3); Red Blood Count 4.03 M/uL (4.2-5.4); White Blood Count 9.11 K/uL (4.8-10.8)
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
[2019-09-23 07:40] LABS: Hypochromasia Present; Microcytosis Present
[2019-09-23 07:46] LABS: Calcium 8.2 mg/dl (8.5-10.1); Creatinine Clr Calc Pharmacy 93.6 ml/min; Potassium 4.1 mmol/L (3.5-5.1)
--- NOTE | 2019-09-23 08:27 | XRay Report ---
XR KUB/Abdomen 1 view CLINICAL HISTORY: Evaluate kidney stones nephrocalcinosis COMPARISON STUDY: CT 09/22/2019 FINDINGS: Probable passage of the bulk of the distal left ureteral calculi. Probable unchanged nonobstructing distal right ureteral calculus. Diffuse bilateral nephrocalcinosis unchanged. Nonobstructive bowel pattern. IMPRESSION: 1. Stable diffuse bilateral nephrocalcinosis 2. a small nonobstructing distal right ureteral calculus most likely unchanged. 3. Interval passage of the majority of distal left ureteral calcifications described on the prior CT report. ACT 112: Negative or not required by law. The above report was generated using voice recognition software. It may contain grammatical, syntax or spelling errors. Electronically signed by: Alvarado Villa M.D. 09/23/2019 8:25 AM
[2019-09-23 11:13] VITALS: BP 123/83; TEMP 98.2; O2SAT 94
[2019-09-23 13:22] VITALS: PULSE 75
[2019-09-23] MEDS ORDERED: cefTRIAXone SODIUM 2,000 MG in DEXTROSE 5% 50 ML IV SCH (16:00)
--- NOTE | 2019-09-23 22:01 | Discharge Summary ---
Date of Service September 23, 2019 Admission HPI Per Admitting Provider Avani Arvizu is a 39 year old female who presents to the ER with left flank pain. Associated dysuria. Sharp pain and constant. Notable history of kidney stones previously under Dr Gaytan. Started with her and she reports a ureteral stent was placed around 6 years ago but she was lost to follow up and it remained in for a prolonged amount of time. therefore caused calcification around this. Her main concern to me is that she needs to get out of hospital by 2pm tomorrow as she needs to get to work otherwise she will be fired. No fevers or chills. Principal Diagnosis Ureteral stones with UTI Discharge Exam Constitutional WD/WN, vitals as above Eyes PERRL, conjunctivae normal, anicteric sclerae ENMT external ear and nose normal, oropharynx normal Neck trachea midline, no thyromegaly Respiratory normal respiratory effort, lungs clear to auscultation Cardiovascular RRR, no murmur, no edema Gastrointestinal (Abdomen) normal bowel sounds, soft, nontender, no hepatosplenomegaly Musculoskeletal no cyanosis or clubbing, extremities motor strength 5/5 Skin no rashes, warm and dry Neurologic patellar DTR's 2+ bilat, sensation intact and PERRL, EOMI, accommodation nl, no face palsy, no dysarthria Psychiatric A+Ox3, euthymic affect Lymphatic no cervical or axillary lymphadenopathy Discharge Data Allergies Allergy/AdvReac Type Severity Reaction Status Date / Time morphine Allergy Intermediate HIVES Verified 09/22/19 16:11 naproxen Allergy Intermediate HIVES Verified 09/22/19 16:11 Consultations 09/22/19 17:24 ED Decision to Admit Stat 09/22/19 18:57 Consult Urology Routine Procedures Performed Operation Date: 09/23/19 12:00 <No data on this case meets the specified criteria> Ordered Studies 09/22/19 14:54 CT abd pelvis wo con Stat Hospital Course (1) Obstruction of left ureteropelvic junction due to stone: IV fluids, pain control, Ceftriaxne for complicated UTI stones passed overnight with conservative measures, KUB confirmed this Dr. Lemus evaluated in the AM, okay for patient to be discharged and follow up outpatient will discharge on Keflex x 10 days stay well hydrated Ultram for pain control gave patient off work follow up with urology soon for medullary kidney and recurrent stones stones sent for analysis (2) Complicated UTI (urinary tract infection): Continue ceftriaxone 2g IV daily while admitted no fever, WBC normal d/c home on Keflex 500mg BID x 10 days (3) Acute left flank pain: Secondary to above complicated UTI as above and hydronephrosis Toradol and Dilaudid PRN while admitted pain improved significantly as stones passed stay well hydrated, use Ultram PRN for pain control at home (4) Renal colic on left side: (5) Hydronephrosis of left kidney: (6) Iron deficiency: Hb has been trending down patient denies every seeing melena or bright red blood per rectum she admits to eating very little red meats or other foods high in iron Ferritin extremely low at 6 will arrange for Venofer outpatient, needs 200mg IV x 5 total doses at the [facility] can then be started on Ferrous Sulfate BID follow up with PCP Total Time Total Time Spent Total Time Spent (In Minutes): 36 minutes Total Time Includes: Examination of the Patient, Discharge Planning, Medication Reconciliation, Communication With Other Providers (Dr. Lemus, urology) and Other (discussed with photogrammetric stereo compiler about Venofer at [facility], will arrange) Discharge Plan Discharge Items Patient Disposition: Home - Self-Care Reason For Visit: COMPLICATED UTI,L OBSTRUCTING UROLITHIASIS Discharge Diagnosis: UTI Kidney stones Iron deficiency anemia Condition on Discharge: Good Goals: complete 10 days of antibiotics follow up for iron supplementation, Venofer as outpatient follow up with urology for management of stones and medullary sponge kidney Activity: Resume your previous activity Driving/Machine Use: No limitations Weightbearing: Full weightbearing Non-emergency contact: Primary Care Provider and Urologist Call non-emergency contact if: you have any medication questions and your symptoms worsen Follow-up/Referrals: Tay Lemus DO [Physician] - (2 weeks) PCP,NO [Primary Care Provider] - Diet: Regular Addtl Attending Provider Instructions: Medications: - CEPHALEXIN: take twice a day for 10 days for treatment of possible UTI - FERROUS SULFATE: iron supplement, take twice a day - ULTRAM: take 50mg every 8 hours for pain with kidney stones, most of the pain should subside as stones have passed Kidney stones stay well hydrated to keep urine dilute treat pain with Ultram, can use Tylenol 650mg every 6 hours and Motrin 400mg every 6 hours as well treat infection with cephalexin 500mg twice a day for 10 days, start tomorrow morning vitals stable, renal function stable Iron deficiency anemia iron levels are very low, Ferritin is 6, low is considered less than [address] to increase iron levels is to use IV Venofer this can be arranged outpatient by our nurse navigator, they will call you on Wednesday will start on Ferrous sulfate twice a day Pending Studies at Discharge: Yes Studies:: kidney stone analysis Stand-Alone Forms: [facility], Work/School Release (Inpt), Smoking Cessation Medications and DC Order Prescriptions: New cephalexin 500 mg capsule 500 mg PO BID 10 Days Qty: 20 RF: 0 tramadol 50 mg tablet 50 mg PO Q8H PRN (Reason: pain) Qty: 30 RF: 0 ferrous sulfate 325 mg (65 mg iron) tablet 325 mg PO BID Qty: 60 RF: 3 Discharge Orders: Discharge Order (Routine); Ordered 09/23/19 Ordered By: David Heredia/Other Patient Handouts: Understanding Urinary Tract Infections UTIs Admission Data Admit Date/Time: 09/22/19 17:48 Attending Provider: David Esparza Admit Provider: Jeffrey Reaves Primary Care Provider: PCP,NO Other Providers: Jeffrey Reaves ; Tay Lemus Other Interventions: Discharge Summary Assessment (RN) Last Done: 09/23/19 13:19 DC Date/Time DO NOT enter until pt leaves facility: 09/23/19 14:02 Coding Level of Care Code D/C Day Management >30 mins Diagnoses Obstruction of left ureteropelvic junction due to stone N20.1 Complicated UTI (urinary tract infection) N39.0 Acute left flank pain R10.9 Renal colic on left side N23 Hydronephrosis of left kidney N13.30 Iron deficiency E61.1
[2019-09-27 19:18] LABS: Component 2 DNR; Source BLADDER STONE
== END 2019-09-23 14:02 | disposition home or self-care (01) | DRG 690 ==
LOC: ED 14:33 → 2S 17:48 → SUATTDRO 17:48 → 2S 18:27

== ENCOUNTER 2020-03-12 22:18 | Inpatient (IN) ==
[2020-03-12] MEDS ORDERED: ACETAMINOPHEN 325 MG TAB PO STA (22:29)
[2020-03-12] MEDS ORDERED: SODIUM CHLORIDE 0.9% 1000ML 1,000 ML IV ONE (22:29)
[2020-03-12] MEDS ORDERED: fentaNYL citrate 100 MCG/2 ML VIAL IV STA ×2 (22:29→23:59)
--- NOTE | 2020-03-12 22:35 | Emergency Department Note ---
Impression & Plan Renal colic on right side, Kidney stone, First trimester ED Provider Note NAME: JIMENEZ CORTES AGE: 39 SEX: F : 1980 ARRIVES VIA: Walk-In INFORMANT: Patient, ED PROVIDER(S): Jose Addison MD Chief Complaint: Back pain HPI: Patient does present with worsening back pain. I had seen the patient last evening for similar symptoms with the patient states that this is gotten progressively worse today. The patient does localize to the right flank. The patient denies any radiation of pain or recent trauma. The patient has heavy lifting twisting or turning. The patient denies any bowel bladder incontinence or retention. The patient has fevers, chills, chest pains or shortness of breath. Patient has had nausea consistent with first trimester . The patient is a G9, P7 currently at approximately 8 weeks by last menstrual period. The patient denies any recent vaginal bleeding or discharge. The patient denies abdominal pain. Patient denies any blood in urine or stool. 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 ROS: See HPI for pertinent positives and negatives. A total of 10 systems were reviewed and otherwise negative. Past medical history: See below Surgical history: See below Social history: See below Physical Exam: GENERAL: Tearful, wearing a mask. EYE EXAM: Normal conjunctiva. PERRL, no anisocoria and EOM's grossly intact w/o pain. NECK: Supple, no nuchal rigidity, no adenopathy, non-tender. No signs of meningismus. LUNGS: Clear to auscultation. Normal chest wall mechanics. HEART: NSR, no MRG. ABDOMEN: Abdomen soft, non-tender, normo-active bowel sounds, no masses, no rebound or guarding. BACK: Right-sided CVA TTP. No pain to the midline or overlying skin changes. SKIN: No rashes and no bruising. UPPER EXTREMITIES: Upper extremities are grossly normal. LOWER EXTREMITIES: Grossly normal, no edema. NEURO EXAM: A&O x3, cranial nerves II-XII grossly intact, normal speech, moves all 4 extremities on command w/o issue. No saddle anesthesia. Differential diagnoses: Renal colic, UTI, appendicitis, diverticulitis, mesenteric ischemia, aortic pathology, infections, inflammatory bowel disease, PUD, biliary pathology, as well as other pathologies. Course: Patient was seen and evaluated the bedside. Full history physical exam was performed. EKG: None Imaging Studies: Radiology results as stated below per my review in the radiologist's interpretation: Right kidney measures 13.6 cm. Multiple nonobstructing intrarenal calculi. Mild hydronephrosis and proximal hydroureter with 1.6 cm stone identified in the proximal right ureter. The distal right ureter is also mildly prominent. Small right kidney cyst. Left kidney measures 13.2 cm. Multiple nonobstructing intrarenal calculi. Subcentimeter cyst. Mild hydronephrosis. Mild hydroureter, greatest proximally. Evaluation of the urinary bladder demonstrates bilateral ureteral jets. Grade uterus. Radiologist: Charles Snider MD Cardiac monitoring: An order was placed for continuous cardiac monitoring. The monitor shows a rate of 84 with sinus rhythm. MDM: Patient did present with concern for back pain. Blood work was obtained the patient was given IV fluids and pain medication and an ultrasound was also completed. Have any midline back pain or reproducible tenderness to the midline spine. Patient does not show any signs of sciatica or concern for cauda equina at this time. The patient was able to walk back from triage without any difficulty ambulating. Patient is a mild white count 14.9. Slightly up from yesterday. Patient's hemoglobin 11.9. Platelet count is unremarkable. The patient's kidney function unremarkable with mild hypokalemia. Urinalysis does show blood nitrites leuks whites and reds but multiple epithelial cells. No bacteria noted. Patient's ultrasound does show 1.6 cm stone in the proximal right ureter. Patient does have only mild hydrobilaterally. Patient does demonstrate bilateral ureteral jets. Gravid uterus noted. It is due to the on-call hospitalist given the patient's lack of improvement in symptoms over the last 24 hours with 2 visits in addition to a fairly large right-sided stone. Patient is not currently septic. The patient is in stable vitals is not febrile. Rocephin ordered as a precaution given the patient's status and questionable urine. Prior urine culture completed yesterday only shows likely skin cassidy. Patient has had lithotripsy completed in the past and may benefit from the same. Past Med/Surg History Medical History Anemia Kidney stone Low iron Migraine Post traumatic stress disorder Surgical History Family history of reaction to anesthesia BROTHER-ALSO SLOW TO WAKE UP History of anesthesia reaction SLOW TO WAKE UP History of cystoscopy WITH STENT IN PAST History of laparoscopy ADHESIONS "SCAR TISSUE" History of lithotripsy [place] teeth removed Family History Mother Family history of diabetes mellitus Grandmother (Maternal) Family history of diabetes mellitus Other No pertinent family history No pertinent family history in first degree relatives Social History Smoking Status: Current every day smoker Tobacco Type: Cigarettes Cigarettes Per Day: 10 CIG DAILY; Second Hand Exposure: Yes; Hx Alcohol Use: No Hx Substance Use: No Preferred Language: Malawian Communication Ability: Effective Visual Impairment: No Limitations Hearing Ability: Normal Transportation Dispatch Manager Required: No Beliefs That Will Affect Care: None Current Living Situation: Family Current Living Situation Comment: two children 6 & 8 Feels Safe at Home: Yes Assistive Devices: None Allergies Allergies Allergy/AdvReac Type Severity Reaction Status Date / Time morphine Allergy Intermediate HIVES Verified 03/12/20 22:56 naproxen Allergy Intermediate HIVES Verified 03/12/20 22:56 Home Meds Home Medications Medication Instructions Recorded Confirmed PNV cmb#95-ferrous fumarate-FA 1 tab PO DAILY 03/11/20 03/12/20 [] Previous Rx's Medication Instructions Recorded cephalexin [Keflex] 500 mg PO Q12H 5 Days #10 cap 03/11/20 Results & Data (ED) Vital Signs Vital Signs - 24 hr 03/12/20 22:22 03/13/20 00:18 03/13/20 01:20 Temperature 36.8 C Temperature Source Oral Pulse Rate 84 Pulse Rate [Finger] 91 H 86 Respiratory Rate 18 18 18 Respiratory Effort / Characteristics Non-Labored Non-Labored Non-Labored Spontaneous Respiratory Depth Normal Normal Normal Blood Pressure 120/97 Blood Pressure [Left Arm] 118/75 119/61 Blood Pressure Mean 104 Blood Pressure Mean [Left Arm] 89 80 Pulse Oximetry 100 98 99 Oxygen Delivery Method Room Air Room Air Room Air Sepsis Recent Fever Within 48 Hours No Sepsis New/Unexplained Change in Mental Status No Sepsis Action Taken by Nursing No Action Required Home Medications Current Medication List: was personally reviewed by me Laboratory Data Attestation: I reviewed the patient's lab results. Result diagrams: 03/12/20 22:43 03/12/20 22:43 Lab Results 03/12/20 03/12/20 03/12/20 Range/Units 22:30 22:43 22:43 WBC 14.96 H (4.8-10.8) K/uL RBC 4.86 (4.2-5.4) M/uL Hgb 11.9 L (12.0-16.0) g/dL Hct 38.0 (37-47) % MCV 78.2 L (80-100) fL MCH 24.5 L (25-34) pg MCHC 31.3 L (32-36) g/dL RDW Std Deviation 60.3 H (36.4-46.3) fL RDW Coeff of Estuardo 21.5 H (11.5-14.5) % Plt Count 399 (130-400) K/uL MPV 9.4 (7.4-10.4) fL Immature Gran % (Auto) 0.2 % Neut % (Auto) 68.0 % Lymph % (Auto) 25.1 % [place] % (Auto) 5.7 % Eos % (Auto) 0.8 % Baso % (Auto) 0.2 % Neut # (Auto) 10.18 H (1.4-6.5) K/uL Lymph # (Auto) 3.75 H (1.2-3.4) K/uL [place] # (Auto) 0.85 H (0.11-0.59) K/uL Eos # (Auto) 0.12 (0-0.5) K/uL Baso # (Auto) 0.03 (0-0.2) K/uL Immature Gran # (Auto) 0.03 H (0.00-0.02) K/uL Polychromasia 1+ Anisocytosis Present Sodium 137 (136-145) mmol/L Potassium 3.3 L (3.5-5.1) mmol/L Chloride 108 H (98-107) mmol/L Carbon Dioxide 23 (21-32) mmol/L Anion Gap 6.0 (3-11) BUN 11 (7-18) mg/dl Creatinine 1.01 (0.6-1.2) mg/dl Est Cr Clr Drug Dosing 88.3 ml/min Est GFR ( Amer) 81.8 Est GFR (Non-Af Amer) 70.6 BUN/Creatinine Ratio 10.6 (10-20) Glucose 101 H (70-99) mg/dl Calcium 9.6 (8.5-10.1) mg/dl Total Bilirubin 0.2 (0.2-1) mg/dl AST 12 L (15-37) U/L ALT 20 (12-78) U/L Alkaline Phosphatase 78 (45-117) U/L Total Protein 7.7 (6.4-8.2) gm/dl Albumin 3.8 (3.4-5.0) gm/dl Globulin 3.9 (2.5-4.0) gm/dl Albumin/Globulin Ratio 1.0 (0.9-2) Lipase 180 (73-393) U/L Urine Color Yellow Urine Appearance Clear (Clear) Urine pH 7.0 (4.5-7.5) Ur Specific [place] 1.009 (1.000-1.030) Urine Protein Negative (Negative) Urine Glucose (UA) Negative (Negative) Urine Ketones Negative (Negative) Urine Blood 3+ H (Negative) Urine Nitrite Positive A (Negative) Urine Bilirubin Negative (Negative) Urine Urobilinogen Negative (Negative) Ur Leukocyte Esterase 2+ H (Negative) Urine WBC (Auto) 10-30 H (0-5) /hpf Urine RBC (Auto) >30 H (0-4) /hpf U Hyaline Cast (Auto) 1-5 (0-5) /lpf U Epithel Cells (Auto) >30 H (0-5) /lpf Urine Bacteria (Auto) Negative (Negative) COVID-19 Eval Order SARS-CoV-2, RNA, NAAT (NEGATIVE) 03/13/20 03/13/20 Range/Units 00:40 00:40 WBC (4.8-10.8) K/uL RBC (4.2-5.4) M/uL Hgb (12.0-16.0) g/dL Hct (37-47) % MCV (80-100) fL MCH (25-34) pg MCHC (32-36) g/dL RDW Std Deviation (36.4-46.3) fL RDW Coeff of Estuardo (11.5-14.5) % Plt Count (130-400) K/uL MPV (7.4-10.4) fL Immature Gran % (Auto) % Neut % (Auto) % Lymph % (Auto) % [place] % (Auto) % Eos % (Auto) % Baso % (Auto) % Neut # (Auto) (1.4-6.5) K/uL Lymph # (Auto) (1.2-3.4) K/uL [place] # (Auto) (0.11-0.59) K/uL Eos # (Auto) (0-0.5) K/uL Baso # (Auto) (0-0.2) K/uL Immature Gran # (Auto) (0.00-0.02) K/uL Polychromasia Anisocytosis Sodium (136-145) mmol/L Potassium (3.5-5.1) mmol/L Chloride (98-107) mmol/L Carbon Dioxide (21-32) mmol/L Anion Gap (3-11) BUN (7-18) mg/dl Creatinine (0.6-1.2) mg/dl Est Cr Clr Drug Dosing ml/min Est GFR ( Amer) Est GFR (Non-Af Amer) BUN/Creatinine Ratio (10-20) Glucose (70-99) mg/dl Calcium (8.5-10.1) mg/dl Total Bilirubin (0.2-1) mg/dl AST (15-37) U/L ALT (12-78) U/L Alkaline Phosphatase (45-117) U/L Total Protein (6.4-8.2) gm/dl Albumin (3.4-5.0) gm/dl Globulin (2.5-4.0) gm/dl Albumin/Globulin Ratio (0.9-2) Lipase (73-393) U/L Urine Color Urine Appearance (Clear) Urine pH (4.5-7.5) Ur Specific [place] (1.000-1.030) Urine Protein (Negative) Urine Glucose (UA) (Negative) Urine Ketones (Negative) Urine Blood (Negative) Urine Nitrite (Negative) Urine Bilirubin (Negative) Urine Urobilinogen (Negative) Ur Leukocyte Esterase (Negative) Urine WBC (Auto) (0-5) /hpf Urine RBC (Auto) (0-4) /hpf U Hyaline Cast (Auto) (0-5) /lpf U Epithel Cells (Auto) (0-5) /lpf Urine Bacteria (Auto) (Negative) COVID-19 Eval Order Covid19 IDNow [facility] SARS-CoV-2, RNA, NAAT NEGATIVE (NEGATIVE) Administered Medications Hydromorphone HCl (Hydromorphone Inj 0.5 Mg/0.5 Ml Syr) 0.2 mg IV Q4H PRN PRN Reason: Severe Pain Stop: 03/27/20 01:01 Last Admin: 03/13/20 01:17 Dose: 0.2 mg Documented by: [id number] Discontinued Medications Acetaminophen (Acetaminophen 325 Mg Tab) 650 mg PO NOW STA Stop: 03/12/20 22:30 Last Admin: 03/12/20 22:55 Dose: 650 mg Documented by: [id number] Acetaminophen (Acetaminophen 325 Mg Tab) 650 mg PO NOW STA Stop: 03/13/20 00:02 Last Admin: 03/13/20 00:12 Dose: Not Given Documented by: [id number] Fentanyl Citrate (Fentanyl Citrate 100 Mcg/2 Ml Vial) 50 mcg IV NOW STA Stop: 03/12/20 22:30 Last Admin: 03/12/20 22:56 Dose: 50 mcg Documented by: [id number] Fentanyl Citrate (Fentanyl Citrate 100 Mcg/2 Ml Vial) 25 mcg IV NOW STA Stop: 03/13/20 00:00 Last Admin: 03/13/20 00:16 Dose: Not Given Documented by: [id number] Hydromorphone HCl (Hydromorphone Inj 0.5 Mg/0.5 Ml Syr) Confirm Administered Dose 0.5 mg .ROUTE .STK-MED ONE Stop: 03/13/20 01:15 Last Admin: 03/13/20 01:18 Dose: Not Given Documented by: [id number] Sodium Chloride (Nss 1000ml) 1,000 mls @ 999 mls/hr IV .Q1H1M ONE Stop: 03/12/20 23:29 Last Infusion: 03/13/20 01:18 Dose: 0 mls/hr Documented by: [id number] Admin: 03/12/20 22:58 Dose: 999 mls/hr Documented by: [id number] Ceftriaxone Sodium (Rocephin) 2,000 mg in 70 mls @ 140 mls/hr IV NOW STA Stop: 03/13/20 00:57 Last Infusion: 03/13/20 01:18 Dose: 0 mls/hr Documented by: [id number] Admin: 03/13/20 00:42 Dose: 140 mls/hr Documented by: [id number] Metoclopramide HCl (Metoclopramide Hcl Inj 5 Mg/Ml 2 Ml Vial) 10 mg IV NOW STA Stop: 03/13/20 00:00 Last Admin: 03/13/20 00:12 Dose: 10 mg Documented by: [id number] Discharge Plan Visit Data Chief Complaint: Flank Pain Stated Complaint: BACK PAIN ED Provider: Jose Addison Discharge Problem: Renal colic on right side, Kidney stone, First trimester Forms Stand Alone Forms: [facility] Prescriptions Prescriptions: No Action PNV cmb#95-ferrous fumarate-FA [] 28 mg iron- 800 mcg Tablet 1 tab PO DAILY RF: 0 cephalexin [Keflex] 500 mg capsule 500 mg PO Q12H 5 Days Qty: 10 RF: 0
[2020-03-12 22:41] LABS: Appearance Urine Clear (Clear); Bacteria Urine Automated Negative (Negative); Bilirubin Urine Negative (Negative); Blood Urine 3+ (Negative); Color Urine Yellow; Epithelial Cell Urine Auto >30 /lpf (0-5); Glucose Urine UA Negative (Negative); Ketones Urine Negative (Negative); Leukocyte Esterase Urine 2+ (Negative); Nitrite Urine Positive (Negative); Protein Urine Negative (Negative); RBC Urine Automated >30 /hpf (0-4); Specific Gravity Urine 1.009 (1.000-1.030); Urobilinogen Urine Negative (Negative)
[2020-03-12 22:55] LABS: Basophils # (auto) 0.03 K/uL (0-0.2); Basophils % (auto) 0.2 %; Eosinophils # (auto) 0.12 K/uL (0-0.5); Eosinophils % (auto) 0.8 %; Hemoglobin 11.9 g/dL (12.0-16.0); Immature Granulocytes # (auto) 0.03 K/uL (0.00-0.02); Immature Granulocytes % (auto) 0.2 %; Lymphocytes # (auto) 3.75 K/uL (1.2-3.4); Lymphocytes % (auto) 25.1 %; Mean Corpuscular Hemoglobin 24.5 pg (25-34); Mean Corpuscular Hgb Conc 31.3 g/dL (32-36); Mean Corpuscular Volume 78.2 fL (80-100); Mean Platelet Volume 9.4 fL (7.4-10.4); Monocytes # (auto) 0.85 K/uL (0.11-0.59); Monocytes % (auto) 5.7 %; Neutrophils # (auto) 10.18 K/uL (1.4-6.5); Platelet Count 399 K/uL (130-400); RDW Coefficient of Variation 21.5 % (11.5-14.5); RDW Standard Deviation 60.3 fL (36.4-46.3); Red Blood Count 4.86 M/uL (4.2-5.4); White Blood Count 14.96 K/uL (4.8-10.8)
[2020-03-12 23:13] LABS: Albumin Level 3.8 gm/dl (3.4-5.0); BUN Creatinine Ratio 10.6 (10-20); Calcium 9.6 mg/dl (8.5-10.1); Creatinine Clr Calc Pharmacy 88.3 ml/min; Est GFR (African American) 81.8; Est GFR (Non-African American) 70.6; Potassium 3.3 mmol/L (3.5-5.1)
[2020-03-12 23:14] LABS: Anisocytosis Present; Polychromasia 1+
[2020-03-12 23:16] LABS: Bilirubin,Total 0.2 mg/dl (0.2-1); Globulin 3.9 gm/dl (2.5-4.0); Total Protein 7.7 gm/dl (6.4-8.2)
[2020-03-12] MEDS ORDERED: METOCLOPRAMIDE HCL INJ 5 MG/ML 2 ML VIAL IV STA (23:59)
[2020-03-13] MEDS ORDERED: ACETAMINOPHEN 325 MG TAB PO STA (00:01)
[2020-03-13] MEDS ORDERED: cefTRIAXone SODIUM 2,000 MG/70 ML BAG IV STA (00:28)
--- NOTE | 2020-03-13 00:54 | History & Physical Report ---
Date of Service March 13, 2020 Assessment & Plan (1) Calculus of proximal right ureter: 1.6 cm proximal right ureteral stone with mild hydroureteronephrosis- NPO NSS at 80 mils per hour Ceftriaxone 1 g IV daily Follow urine culture and sensitivity Dilaudid 0.2 mg IV every 4 hours as needed severe pain. Zofran 4 mg IV every 6 hours as needed Consult urology Present on Admission?: Yes (2) Hydronephrosis with obstructing calculus: See above Present on Admission?: Yes (3) with 8 completed weeks gestation: Patient reports this is her third time to have a kidney stone at 8 weeks gestation. Present on Admission?: Yes History of Present Illness Chief Complaint: The patient presents to the emergency department with worsening right flank and lower abdominal pain that she initially underwent assessment for in the ED last evening. Primary Care Provider: Beckie Almanza PA-C The patient is a 39-year-old female with a past medical history including pyelonephritis, right and left ureteral calculus, acute renal failure, mood disorder, right-sided de Quervain's tenosynovitis, mesenteric adenitis, and iron deficiency. She initially presented to the emergency department last evening with right-sided flank pain, was noted to have kidney stone, and was discharged to try to follow-up in outpatient setting. However, patient worsening symptoms this evening, and presented to the ED for reassessment. Renal ultrasound this evening shows a 1.6 cm proximal right ureteral stone and bilateral hydroureteronephrosis. Allergies Allergy/AdvReac Type Severity Reaction Status Date / Time morphine Allergy Intermediate HIVES Verified 03/12/20 22:56 naproxen Allergy Intermediate HIVES Verified 03/12/20 22:56 Home Medications Medication Instructions Recorded Confirmed Type PNV cmb#95-ferrous fumarate-FA 1 tab PO DAILY 03/11/20 03/12/20 History [] cephalexin [Keflex] 500 mg PO Q12H 5 Days #10 cap 03/11/20 03/12/20 Rx Past Med/Surg History Medical History Anemia Kidney stone Low iron Migraine Post traumatic stress disorder Surgical History Family history of reaction to anesthesia BROTHER-ALSO SLOW TO WAKE UP History of anesthesia reaction SLOW TO WAKE UP History of cystoscopy WITH STENT IN PAST History of laparoscopy ADHESIONS "SCAR TISSUE" History of lithotripsy [place] teeth removed Family History Mother Family history of diabetes mellitus Grandmother (Maternal) Family history of diabetes mellitus Other No pertinent family history No pertinent family history in first degree relatives Social History Smoking Status: Current every day smoker Tobacco Type: Cigarettes Cigarettes Per Day: 10 CIG DAILY; Second Hand Exposure: Yes; Hx Alcohol Use: No Hx Substance Use: No Preferred Language: Amharic Communication Ability: Effective Visual Impairment: No Limitations Hearing Ability: Normal Fiscal Officer Required: No Beliefs That Will Affect Care: None Current Living Situation: Family Current Living Situation Comment: two children 6 & 8 Feels Safe at Home: Yes Assistive Devices: None Review of Systems Review of Systems: The patient denies chest pain, palpitations, shortness of breath, dyspnea on exertion, cough, lower extremity swelling, sore throat, fevers, chills, sweats, vomiting, diarrhea , constipation, blood in urine or stool, dysuria, urinary frequency or urgency, lightheadedness, dizziness, headache, memory loss, loss of consciousness, rash, abnormal bruising or bleeding, imbalance, focal or generalized weakness, numbness or tingling in arms or legs, generalized arthralgias or myalgias, neck pain, or night sweats. The review of systems is otherwise negative other than for that already noted above, and at least 10 systems have been reviewed. Physical Exam Physical Exam: The patient is awake, alert and oriented 3, well developed and well nourished, normocephalic and atraumatic, lying in bed and in no acute distress. HEENT--PERRL, EOMI, mucous membranes and oropharynx dry. Neck--supple. No JVD. No bruits. Thyroid normal, trachea midline, no adenopathy. Heart--normal S1 and S2. No murmurs, rubs or gallops. Lungs--clear bilaterally, no respiratory distress, no accessory muscle use. Abdomen--normal bowel sounds and soft. Tender right flank. Nondistended. Extremities--no cyanosis or clubbing. No edema. Dermatologic--normal skin turgor, normal color, no abnormal lymph nodes, no rash. Neurologic--cranial nerves II through XII grossly intact. Rheumatologic--normal range of motion. Psychiatric--normal affect. Results & Data Results & Data ([facility]) Vital Signs (Past 12 Hours) Vital Signs Temp Pulse Pulse Resp BP BP Pulse Ox 03/13/20 00:18 91 H 18 118/75 98 03/12/20 22:22 98.2 F 84 18 120/97 100 Laboratory Results Laboratory Results WBC 14.96 K/uL (4.8-10.8) H 03/12/20 22:43 RBC 4.86 M/uL (4.2-5.4) 03/12/20 22:43 Hgb 11.9 g/dL (12.0-16.0) L 03/12/20 22:43 Hct 38.0 % (37-47) 03/12/20 22:43 MCV 78.2 fL (80-100) L 03/12/20 22:43 MCH 24.5 pg (25-34) L 03/12/20 22:43 MCHC 31.3 g/dL (32-36) L 03/12/20 22:43 RDW Std Deviation 60.3 fL (36.4-46.3) H 03/12/20 22:43 RDW Coeff of Estuardo 21.5 % (11.5-14.5) H 03/12/20 22:43 Plt Count 399 K/uL (130-400) 03/12/20 22:43 MPV 9.4 fL (7.4-10.4) 03/12/20 22:43 Immature Gran % (Auto) 0.2 % 03/12/20 22:43 Neut % (Auto) 68.0 % 03/12/20 22:43 Lymph % (Auto) 25.1 % 03/12/20 22:43 [place] % (Auto) 5.7 % 03/12/20 22:43 Eos % (Auto) 0.8 % 03/12/20 22:43 Baso % (Auto) 0.2 % 03/12/20 22:43 Neut # (Auto) 10.18 K/uL (1.4-6.5) H 03/12/20 22:43 Lymph # (Auto) 3.75 K/uL (1.2-3.4) H 03/12/20 22:43 [place] # (Auto) 0.85 K/uL (0.11-0.59) H 03/12/20 22:43 Eos # (Auto) 0.12 K/uL (0-0.5) 03/12/20 22:43 Baso # (Auto) 0.03 K/uL (0-0.2) 03/12/20 22:43 Immature Gran # (Auto) 0.03 K/uL (0.00-0.02) H 03/12/20 22:43 Polychromasia 1+ 03/12/20 22:43 Anisocytosis Present 03/12/20 22:43 Sodium 137 mmol/L (136-145) 03/12/20 22:43 Potassium 3.3 mmol/L (3.5-5.1) L 03/12/20 22:43 Chloride 108 mmol/L (98-107) H 03/12/20 22:43 Carbon Dioxide 23 mmol/L (21-32) 03/12/20 22:43 Anion Gap 6.0 (3-11) 03/12/20 22:43 BUN 11 mg/dl (7-18) 03/12/20 22:43 Creatinine 1.01 mg/dl (0.6-1.2) 03/12/20 22:43 Est Cr Clr Drug Dosing 88.3 ml/min 03/12/20 22:43 Est GFR ( Amer) 81.8 03/12/20 22:43 Est GFR (Non-Af Amer) 70.6 03/12/20 22:43 BUN/Creatinine Ratio 10.6 (10-20) 03/12/20 22:43 Glucose 101 mg/dl (70-99) H 03/12/20 22:43 Calcium 9.6 mg/dl (8.5-10.1) 03/12/20 22:43 Total Bilirubin 0.2 mg/dl (0.2-1) 03/12/20 22:43 AST 12 U/L (15-37) L 03/12/20 22:43 ALT 20 U/L (12-78) 03/12/20 22:43 Alkaline Phosphatase 78 U/L (45-117) 03/12/20 22:43 Total Protein 7.7 gm/dl (6.4-8.2) 03/12/20 22:43 Albumin 3.8 gm/dl (3.4-5.0) 03/12/20 22:43 Globulin 3.9 gm/dl (2.5-4.0) 03/12/20 22:43 Albumin/Globulin Ratio 1.0 (0.9-2) 03/12/20 22:43 Lipase 180 U/L (73-393) 03/12/20 22:43 Urine Color Yellow 03/12/20 22:30 Urine Appearance Clear (Clear) 03/12/20 22:30 Urine pH 7.0 (4.5-7.5) 03/12/20 22:30 Ur Specific [place] 1.009 (1.000-1.030) 03/12/20 22:30 Urine Protein Negative (Negative) 03/12/20 22:30 Urine Glucose (UA) Negative (Negative) 03/12/20 22:30 Urine Ketones Negative (Negative) 03/12/20 22:30 Urine Blood 3+ (Negative) H 03/12/20 22:30 Urine Nitrite Positive (Negative) A 03/12/20 22:30 Urine Bilirubin Negative (Negative) 03/12/20 22:30 Urine Urobilinogen Negative (Negative) 03/12/20 22:30 Ur Leukocyte Esterase 2+ (Negative) H 03/12/20 22:30 Urine WBC (Auto) 10-30 /hpf (0-5) H 03/12/20 22:30 Urine RBC (Auto) >30 /hpf (0-4) H 03/12/20 22:30 U Hyaline Cast (Auto) 1-5 /lpf (0-5) 03/12/20 22:30 U Epithel Cells (Auto) >30 /lpf (0-5) H 03/12/20 22:30 Urine Bacteria (Auto) Negative (Negative) 03/12/20 22:30 COVID-19 Eval Order Covid19 [facility] 03/13/20 00:40 Diagnostic Findings [facility] Patient: JIMENEZ CORTES (Female) : 82 Status: ER Date: 03/12/20 23:54 Room #: History: right flank and lower back pain. 8 wks Slices: 79 Priors: CT 01/26/20 Tech: Kierra Joseph @ [phone] Exams: US RENAL Contrast: Accession Numbers: [id number] Preliminary Findings Only See Final Report For Complete Findings US RENAL: Comparison: CT abdomen and pelvis 01/26/20. Right kidney measures 13.6 cm. Multiple nonobstructing intrarenal calculi. Mild hydronephrosis and proximal hydroureter with 1.6 cm stone identified in the proximal right ureter. The distal ureter is also mildly prominent. Small right kidney cysts. Left kidney measures 13.2 cm. Multiple nonobstructing intrarenal calculi. Subcentimeter cyst. Mild hydronephrosis. Mild hydroureter, greatest proximally. Evaluation of the urinary bladder demonstrates bilateral ureteral jets. Gravid uterus. Radiologist: Charles Snider M.D. Study ready at 23:59 and initial results transmitted at 00:05 *This report constitutes a preliminary interpretation only. Non-acute findings felt to be unrelated to the clinical presentation may not be discussed in this report. The study will be interpreted and a final report will be generated by the local Radiologist the following shift. To reach the hospital radiology department call [phone]. If a discrepancy is found between the preliminary and final interpretations of this study, please notify us via our Client Portal at [email or web address] under QA Exams.You can also fax this report with a description of the discrepancy, or include the final report, to our daytime fax number [phone].If faxing, please indicate the severity of discrepancy using one of the following categories: [ ] 1 - Agree/Informational [ ] 2 - Unlikely to Affect Management [ ] 3 - Possible Eventual Change of Management [ ] 4 - Probable Immediate Change of Management For all other patient related information, please fax us at [phone]. [id number] Code Status & VTE Plan Code Status Full code VTE Prophylaxis Plan VTE Prophylaxis will be ordered: Yes PG Care Time/CCT Total # of Minutes Spent Total Time Spent with Patient: Total time spent is greater than 50% in coordination of care (as documented) at patient's floor/unit and/or counseling patient: Coding Level of Care Code 04708 Initial Inpt Care Lvl 2 Diagnoses Calculus of proximal right ureter N20.1 Hydronephrosis with obstructing calculus N13.2 with 8 completed weeks gestation Z3A.08
[2020-03-13] MEDS ORDERED: HYDROmorphone INJ 0.5 MG/0.5 ML SYR ONE (01:14)
[2020-03-13] MEDS: HYDROmorphone INJ 0.5 MG/0.5 ML SYR IV PRN ×6 (01:17→22:27)
[2020-03-13] MEDS ORDERED: SODIUM CHLORIDE 0.9% 1000ML 1,000 ML IV SCH (02:03)
--- NOTE | 2020-03-13 07:00 | Ultrasound Report ---
RENAL ULTRASOUND CLINICAL HISTORY: back pain; h/o stones, COMPARISON STUDY: CT of the abdomen and pelvis January 26, 2020. TECHNIQUE: Sonography of the kidneys and the urinary bladder was performed. FINDINGS: Note is again made of medullary nephrocalcinosis with extensive bilateral renal calculi, gr eater on the right. The right kidney measures 13.6 x 6 x 7.2 cm and the left measures 13.2 x 5.5 x 6 cm. There is mild right hydronephrosis. A proximal right ureteral calculus measures approximately 1.5 x 0.6 cm. The distal right ureter is also slightly dilated. There is apparent urothelial thickening. Both ureteral jets were identified. There is also mild left hydronephrosis. No left ureteral calculi were identified. Note is made of an intrauterine gestation. cardiac activity is noted. Please note that a dedicated anatomical survey was not performed. IMPRESSION: 1. Mild right hydronephrosis. Proximal right ureteral calculus measures approximately 1.5 x 0.6 cm. 2. Mild left hydronephrosis. No left ureteral calculi by sonography. 3. Medullary nephrocalcinosis with extensive bilateral renal calculi, more numerous on the right. 4. Intrauterine gestation. ACT 112: Negative or not required by law. Electronically signed by: Abiodun Horowitz M.D. 03/13/2020 6:58 AM
--- NOTE | 2020-03-13 07:46 | Hospitalist Progress Note ---
Date of Service March 13, 2020 Assessment & Plan (1) Calculus of proximal right ureter: 1.6 cm proximal right ureteral stone with mild hydroureteronephrosis- NPO NSS at 80 mils per hour Ceftriaxone 1 g IV daily Follow urine culture and sensitivity Dilaudid 0.2 mg IV every 4 hours as needed severe pain. Zofran 4 mg IV every 6 hours as needed Consult urology (2) Hydronephrosis with obstructing calculus: See above (3) with 8 completed weeks gestation: Patient reports this is her third time to have a kidney stone at 8 weeks gestation. Admission and Anticipated Discharge Date Admission Date: March 13, 2020 Results & Data Results & Data ([facility]) Vital Signs (Past 12 Hours) Vital Signs Temp Pulse Pulse Resp BP BP Pulse Ox 03/13/20 07:24 98.2 F 83 16 100/63 97 03/13/20 02:04 98.4 F 98 H 16 126/70 99 03/13/20 01:20 86 18 119/61 99 03/13/20 00:18 91 H 18 118/75 98 03/12/20 22:22 98.2 F 84 18 120/97 100 PG Care Time/CCT Total # of Minutes Spent Total Time Spent with Patient: Total time spent is greater than 50% in coordination of care (as documented) at patient's floor/unit and/or counseling patient: Coding Level of Care Code 99484 Subseq Hosp Care Lvl 2 Diagnoses Calculus of proximal right ureter N20.1 Hydronephrosis with obstructing calculus N13.2 with 8 completed weeks gestation Z3A.08
[2020-03-13] MEDS: ACETAMINOPHEN 325 MG TAB PO PRN ×2 (08:43→19:30)
[2020-03-13] MEDS: NSS + 20MEQ KCL 20 MEQ/1,000 ML BAG IV SCH ×2 (09:17→16:32)
[2020-03-13] MEDS: PRENATAL VITAMIN 1 TAB PO SCH (09:17)
[2020-03-13] MEDS: ONDANSETRON INJ 2 MG/ML 2 ML VIAL IV PRN ×2 (09:30→19:30)
--- NOTE | 2020-03-13 10:26 | Urology Consultation ---
Date of Consultation March 13, 2020 Assessment & Plan (1) Calculus of proximal right ureter: 39 year-old female, at 8 week gestation, admitted for right flank pain secondary to 1.5 x 0.6 cm proximal right ureteral stone with mild hydronephrosis. - Case reviewed with Dr. Gayle, iron erector physician, and Dr. Lemus patient's primary urologist - LINDA reviewed with Dr. Lemus - stones appear to be an aggregate of stones rather than one large stone - Afebrile, VSS, lab work reviewed - creatinine within normal limits, mild leukocytosis at 14.96 (03/12), no new labs at time of visit, nontoxic appearance - Lengthy discussion of options for stone management in setting of - Options for management include maximum expulsion therapy with symptom control vs intervention - Given status, would avoid intervention if possible - can offer stent if she becomes febrile or ill - She poorly tolerated stents in the past and we discussed that she would require frequent stent exchanges during which would require anesthesia each time - Alternatively, she could go to tertiary center for nephrostomy tube placement done by IR - She elects observation and symptom management for now - UC&S pending - continue abx, follow cultures - Continue supportive care and prn analgesia - Okay to give diet today and make NPO again at midnight to reassess - Please consult our service urgently if patient develops fever >101F, intractable pain or nausea, as this will necessitate urgent surgical intervention. - Thank you for the consultation and we will continue to monitor closely with primary service. History of Present Illness Reason for Consultation: 1.6 cm prox R ureteral stone with mild hydro Requesting Physician: Dr. Pathak Attending Physician: Isaias Enciso MD History of Present Illness 39 year-old female, at 8 week gestation, admitted for right flank pain secondary to 1.5 x 0.6 cm proximal right ureteral stone with mild hydronephrosis. PMHx of bilateral nephrolithiasis, medullary sponge kidney, pyelonephritis, acute renal failure, mood disorder, right-sided de Quervain's tenosynovitis, mesenteric adenitis, and iron deficiency. Pt known to our service for extensive history of kidney stones, medullary sponge kidney - follows with Dr. Lemus. She presented to [facility] ED on 03/11/20 with back pain. She was discharged to home with Cephalexin for probable cystitis. She returned to ED on 03/12/20 with worsening right flank pain. She was afebrile on arrival. Lab work: creatinine 1.01 (1.07 on 03/11), WBC 14.96 (13.9 on 03/11), Hgb 11.9 (11.7 on 03/11). UA positive nitrates, negative bacteria, >30 RBCs, 10-30 WBCs. Urine culture collected. LINDA showed 1.5 x 0.6 cm proximal right ureteral calculus, mild right hydro, mild left hydro, extensive bilateral renal calculi. She was started on IV Ceftriaxone. Our service is consulted for right proximal ureteral stone and mild right hydronephrosis. Chart review: Afebrile No new lab work today UC&S - pending On IV Ceftriaxone VS - BP 100/63, HR 83, Resp 16, Temp 36.8, O2 sat 97% on RA LINDA impression: 1. Mild right hydronephrosis. Proximal right ureteral calculus measures approximately 1.5 x 0.6 cm. 2. Mild left hydronephrosis. No left ureteral calculi by sonography. 3. Medullary nephrocalcinosis with extensive bilateral renal calculi, more numerous on the right. 4. Intrauterine gestation. Pt seen and examined at bedside this morning. Reports intermittent right flank pain. Recently received Hydromorphone 0.2 mg at 0926, reports moderate relief. No dysuria or hematuria. She feels she is emptying her bladder completely. Mild nausea, which she is unsure if related to stone or . No vomiting. No fever or chills. No constipation. She is currently NPO, feels hungry. Reports poorly tolerating ureteral stents in the past. Prior history of stones in starting at 8 weeks gestation. Reports needing a stent during one of her pregnancies that encrusted in short time period. No additional concerns today. Allergies Allergy/AdvReac Type Severity Reaction Status Date / Time morphine Allergy Intermediate HIVES Verified 03/12/20 22:56 naproxen Allergy Intermediate HIVES Verified 03/12/20 22:56 Home Medications Medication Instructions Recorded Confirmed Type PNV cmb#95-ferrous fumarate-FA 1 tab PO DAILY 03/11/20 03/12/20 History [] cephalexin [Keflex] 500 mg PO Q12H 5 Days #10 cap 03/11/20 03/12/20 Rx Patient History Medical History Anemia Kidney stone Low iron Migraine Post traumatic stress disorder Surgical History Family history of reaction to anesthesia BROTHER-ALSO SLOW TO WAKE UP History of anesthesia reaction SLOW TO WAKE UP History of cystoscopy WITH STENT IN PAST History of laparoscopy ADHESIONS "SCAR TISSUE" History of lithotripsy [place] teeth removed Family History Mother Family history of diabetes mellitus Grandmother (Maternal) Family history of diabetes mellitus Other No pertinent family history No pertinent family history in first degree relatives Social History Smoking Status: Current every day smoker Tobacco Type: Cigarettes Cigarettes Per Day: 8; Second Hand Exposure: Yes; Hx Alcohol Use: No Hx Substance Use: No Preferred Language: [place] Communication Ability: Effective Visual Impairment: No Limitations Hearing Ability: Normal 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 Beliefs That Will Affect Care: None Current Living Situation: Family Current Living Situation Comment: two children 6 & 8 Feels Safe at Home: Yes Assistive Devices: None Review of Systems Constitutional: as per Subjective / HPI Gastrointestinal: as per Subjective / HPI Genitourinary: as per Subjective / HPI Physical Exam Constitutional: well developed and well nourished; no acute distress and not ill appearing nontoxic appearance Eyes: no scleral abnormality Respiratory: normal respiratory effort and able to speak in complete sentences; no respiratory distress and no labored breathing Cardiovascular: Extremities: no calf tenderness and no pedal edema Gastrointestinal (Abdomen): Inspection/Auscultation: abdomen normal to inspection; abdomen not distended Musculoskeletal: Head/Neck/Chest: normocephalic and head atraumatic Skin: no rashes, warm and dry Neurologic: moves all extremities and awake Psychiatric: A+Ox3, euthymic affect Genitourinary: no CVA tenderness Results & Data ([facility]) Vital Signs (Past 12 Hours) Vital Signs Temp Pulse Resp BP Pulse Ox 03/13/20 07:24 36.8 C 83 16 100/63 97 03/13/20 02:04 36.9 C 98 H 16 126/70 99 03/13/20 01:20 86 18 119/61 99 03/13/20 00:18 91 H 18 118/75 98 PG Care Time/CCT Total # of Minutes Spent Total Time Spent with Patient: Total time spent is greater than 50% in coordination of care (as documented) at patient's floor/unit and/or counseling patient: Coding Level of Care Code 53704 Inpt Consult Level 3 Diagnoses Calculus of proximal right ureter N20.1
--- NOTE | 2020-03-13 12:40 | Hospitalist Progress Note ---
Date of Service March 13, 2020 Assessment & Plan (1) Calculus of proximal right ureter: * 1.6 cm proximal right ureteral stone with mild hydroureteronephrosis- * NPO -- given diet as no intervention today * Urology consulted -- appreciate assistance * --> Conservative treatment. Does not want IR. If spikes fever, would need emergent intervention. If transferred, patient would have preference for [facility] * NSS @ 80cc/hr * Ceftriaxone 1gm IV daily * Pain control -- Dilaudid 0.2 mg IV every 4 hours as needed severe pain, tylenol, added hydrocodone PO as patient not for OR today for longer pain control. If needed, could increase dose of dilaudid. * Zofran prn nausea * Monitor labs in AM * NPO after midnight for re-eval Thoughts possible multiple stones in a cluster rather than one 1.6cm calculi. Hopefully will resolve with conservative treatment but will need to notify Urology STAT if develops fever >101F (2) Hydronephrosis with obstructing calculus: * See above (3) with 8 completed weeks gestation: * Patient reports this is her third time to have a kidney stone at 8 weeks gestation. * vitamin Dispo: continued inpatient stay Admission and Anticipated Discharge Date Admission Date: March 13, 2020 Subjective BRIDGE NOTE Patient evaluated this afternoon. Pain controlled with ordered medications, but creeping back up. R lower back pain. States she passed a 7mm stone in the past without intervention. Strainer in the urinal to observe for stone passage. Hx of calcium oxalate stones. Will order PO pain control to see if longer lasting but discussed to alert nursing if ineffective and will increase dose of IV medications. Seen by Urology this morning and opting for conservative treatment. 2 prior pregnancies with stones at 8 weeks. Difficulty with stent calcification in the past and needed removed well after it should be and would like to avoid stent if possible. Discussed if she becomes febrile would warrant more urgent intervention. She would like [facility] if she needs transferred at any point. Smoking 1/2ppd . Counselled on cessation. No need for nicotine patch at this time. 8 children. 1 prior with ruptured amniotic sac and delivered still born at 28 weeks. Moved to the area after 6th child from [place]. No fever, chills, chest pain, shortness of breath, nausea or vomiting. Tolerating diet. Moving her bowels. Urine yellow which was previously clear and that is unusual for her. No hematuria or blood in stool. Questions/concerns addressed. Review of Systems Review of Systems: All systems reviewed & are unremarkable except as noted in HPI & below Physical Exam Constitutional: well developed and well nourished; no acute distress and not ill appearing Eyes: no scleral abnormality ENMT: Ears: no hearing impairment poor dentition Neck: normal visual inspection and trachea midline Respiratory: normal respiratory effort and able to speak in complete sentences; no respiratory distress and no labored breathing Cardiovascular: Extremities: no calf tenderness and no pedal edema Gastrointestinal (Abdomen): Inspection/Auscultation: abdomen normal to inspection; abdomen not distended Musculoskeletal: Head/Neck/Chest: normocephalic and head atraumatic Skin: no rashes, warm and dry Neurologic: moves all extremities and awake Psychiatric: A+Ox3, euthymic affect Genitourinary: + CVA tenderness (R sided) Results & Data Results & Data ([facility]) Vital Signs (Past 12 Hours) Vital Signs Temp Pulse Resp BP Pulse Ox 03/13/20 07:24 36.8 C 83 16 100/63 97 03/13/20 02:04 36.9 C 98 H 16 126/70 99 03/13/20 01:20 86 18 119/61 99 Laboratory Results 03/13/20 03/13/20 03/12/20 Range/Units 00:40 00:40 22:43 WBC (4.8-10.8) K/uL RBC (4.2-5.4) M/uL Hgb (12.0-16.0) g/dL Hct (37-47) % MCV (80-100) fL MCH (25-34) pg MCHC (32-36) g/dL RDW Std Deviation (36.4-46.3) fL RDW Coeff of [place]uardo (11.5-14.5) % Plt Count (130-400) K/uL MPV (7.4-10.4) fL Immature Gran % (Auto) % Neut % (Auto) % Lymph % (Auto) % [place] % (Auto) % Eos % (Auto) % Baso % (Auto) % Neut # (Auto) (1.4-6.5) K/uL Lymph # (Auto) (1.2-3.4) K/uL [place] # (Auto) (0.11-0.59) K/uL Eos # (Auto) (0-0.5) K/uL Baso # (Auto) (0-0.2) K/uL Immature Gran # (Auto) (0.00-0.02) K/uL Polychromasia Anisocytosis Sodium 137 (136-145) mmol/L Potassium 3.3 L (3.5-5.1) mmol/L Chloride 108 H (98-107) mmol/L Carbon Dioxide 23 (21-32) mmol/L Anion Gap 6.0 (3-11) BUN 11 (7-18) mg/dl Creatinine 1.01 (0.6-1.2) mg/dl Est Cr Clr Drug Dosing 88.3 ml/min Est GFR ( Amer) 81.8 Est GFR (Non-Af Amer) 70.6 BUN/Creatinine Ratio 10.6 (10-20) Glucose 101 H (70-99) mg/dl Calcium 9.6 (8.5-10.1) mg/dl Total Bilirubin 0.2 (0.2-1) mg/dl AST 12 L (15-37) U/L ALT 20 (12-78) U/L Alkaline Phosphatase 78 (45-117) U/L Total Protein 7.7 (6.4-8.2) gm/dl Albumin 3.8 (3.4-5.0) gm/dl Globulin 3.9 (2.5-4.0) gm/dl Albumin/Globulin Ratio 1.0 (0.9-2) Lipase 180 (73-393) U/L Urine Color Urine Appearance (Clear) Urine pH (4.5-7.5) Ur Specific [place] (1.000-1.030) Urine Protein (Negative) Urine Glucose (UA) (Negative) Urine Ketones (Negative) Urine Blood (Negative) Urine Nitrite (Negative) Urine Bilirubin (Negative) Urine Urobilinogen (Negative) Ur Leukocyte Esterase (Negative) Urine WBC (Auto) (0-5) /hpf Urine RBC (Auto) (0-4) /hpf U Hyaline Cast (Auto) (0-5) /lpf U Epithel Cells (Auto) (0-5) /lpf Urine Bacteria (Auto) (Negative) COVID-19 Eval Order Covid19 IDNow at[facility]AC SARS-CoV-2, RNA, NAAT NEGATIVE (NEGATIVE) 03/12/20 03/12/20 Range/Units 22:43 22:30 WBC 14.96 H (4.8-10.8) K/uL RBC 4.86 (4.2-5.4) M/uL Hgb 11.9 L (12.0-16.0) g/dL Hct 38.0 (37-47) % MCV 78.2 L (80-100) fL MCH 24.5 L (25-34) pg MCHC 31.3 L (32-36) g/dL RDW Std Deviation 60.3 H (36.4-46.3) fL RDW Coeff of Estuardo 21.5 H (11.5-14.5) % Plt Count 399 (130-400) K/uL MPV 9.4 (7.4-10.4) fL Immature Gran % (Auto) 0.2 % Neut % (Auto) 68.0 % Lymph % (Auto) 25.1 % [place] % (Auto) 5.7 % Eos % (Auto) 0.8 % Baso % (Auto) 0.2 % Neut # (Auto) 10.18 H (1.4-6.5) K/uL Lymph # (Auto) 3.75 H (1.2-3.4) K/uL [place] # (Auto) 0.85 H (0.11-0.59) K/uL Eos # (Auto) 0.12 (0-0.5) K/uL Baso # (Auto) 0.03 (0-0.2) K/uL Immature Gran # (Auto) 0.03 H (0.00-0.02) K/uL Polychromasia 1+ Anisocytosis Present Sodium (136-145) mmol/L Potassium (3.5-5.1) mmol/L Chloride (98-107) mmol/L Carbon Dioxide (21-32) mmol/L Anion Gap (3-11) BUN (7-18) mg/dl Creatinine (0.6-1.2) mg/dl Est Cr Clr Drug Dosing ml/min Est GFR ( Amer) Est GFR (Non-Af Amer) BUN/Creatinine Ratio (10-20) Glucose (70-99) mg/dl Calcium (8.5-10.1) mg/dl Total Bilirubin (0.2-1) mg/dl AST (15-37) U/L ALT (12-78) U/L Alkaline Phosphatase (45-117) U/L Total Protein (6.4-8.2) gm/dl Albumin (3.4-5.0) gm/dl Globulin (2.5-4.0) gm/dl Albumin/Globulin Ratio (0.9-2) Lipase (73-393) U/L Urine Color Yellow Urine Appearance Clear (Clear) Urine pH 7.0 (4.5-7.5) Ur Specific [place] 1.009 (1.000-1.030) Urine Protein Negative (Negative) Urine Glucose (UA) Negative (Negative) Urine Ketones Negative (Negative) Urine Blood 3+ H (Negative) Urine Nitrite Positive A (Negative) Urine Bilirubin Negative (Negative) Urine Urobilinogen Negative (Negative) Ur Leukocyte Esterase 2+ H (Negative) Urine WBC (Auto) 10-30 H (0-5) /hpf Urine RBC (Auto) >30 H (0-4) /hpf U Hyaline Cast (Auto) 1-5 (0-5) /lpf U Epithel Cells (Auto) >30 H (0-5) /lpf Urine Bacteria (Auto) Negative (Negative) COVID-19 Eval Order SARS-CoV-2, RNA, NAAT (NEGATIVE) Diagnostic Findings RENAL ULTRASOUND IMPRESSION: 1. Mild right hydronephrosis. Proximal right ureteral calculus measures approximately 1.5 x 0.6 cm. 2. Mild left hydronephrosis. No left ureteral calculi by sonography. 3. Medullary nephrocalcinosis with extensive bilateral renal calculi, more numerous on the right. 4. Intrauterine gestation. PG Care Time/CCT Total # of Minutes Spent Total Time Spent with Patient: Total time spent is greater than 50% in coordination of care (as documented) at patient's floor/unit and/or counseling patient: Coding Level of Care Code None Diagnoses Calculus of proximal right ureter N20.1 Hydronephrosis with obstructing calculus N13.2 with 8 completed weeks gestation Z3A.08
[2020-03-13] MEDS: HYDROCODONE/ACETAMOPHEN 5/325MG TAB PO PRN ×3 (12:45→20:40)
[2020-03-13] MEDS: cefTRIAXone SODIUM 2,000 MG in DEXTROSE 5% 50 ML IV SCH (21:42)
[2020-03-14] MEDS: HYDROCODONE/ACETAMOPHEN 5/325MG TAB PO PRN ×6 (00:37→23:22)
[2020-03-14] MEDS: NSS + 20MEQ KCL 20 MEQ/1,000 ML BAG IV SCH ×4 (00:38→23:19)
[2020-03-14] MEDS: HYDROmorphone INJ 0.5 MG/0.5 ML SYR IV PRN ×5 (02:02→22:14)
[2020-03-14] MEDS: PRENATAL VITAMIN 1 TAB PO SCH (07:21)
[2020-03-14 07:37] LABS: Basophils # (auto) 0.03 K/uL (0-0.2); Basophils % (auto) 0.3 %; Eosinophils # (auto) 0.09 K/uL (0-0.5); Hematocrit (blood only) 33.6 % (37-47); Hemoglobin 10.1 g/dL (12.0-16.0); Immature Granulocytes # (auto) 0.03 K/uL (0.00-0.02); Immature Granulocytes % (auto) 0.3 %; Lymphocytes # (auto) 3.59 K/uL (1.2-3.4); Lymphocytes % (auto) 39.3 %; Mean Corpuscular Hemoglobin 23.8 pg (25-34); Mean Corpuscular Hgb Conc 30.1 g/dL (32-36); Mean Corpuscular Volume 79.1 fL (80-100); Mean Platelet Volume 9.2 fL (7.4-10.4); Monocytes # (auto) 0.75 K/uL (0.11-0.59); Monocytes % (auto) 8.2 %; Neutrophils # (auto) 4.64 K/uL (1.4-6.5); Neutrophils % (auto) 50.9 %; Platelet Count 279 K/uL (130-400); RDW Coefficient of Variation 21.5 % (11.5-14.5); RDW Standard Deviation 62.3 fL (36.4-46.3); Red Blood Count 4.25 M/uL (4.2-5.4); White Blood Count 9.13 K/uL (4.8-10.8)
[2020-03-14 08:25] LABS: Albumin Level 3.1 gm/dl (3.4-5.0); BUN Creatinine Ratio 7.4 (10-20); Calcium 8.6 mg/dl (8.5-10.1); Est GFR (African American) 106.8; Est GFR (Non-African American) 92.1; Potassium 3.9 mmol/L (3.5-5.1)
[2020-03-14 08:33] LABS: Anisocytosis Present; Microcytosis Present; Poikilocytosis Present
--- NOTE | 2020-03-14 09:07 | Urology Progress Note ---
Date of Service March 14, 2020 Assessment & Plan (1) Calculus of proximal right ureter: 39 year-old female, at 8 week gestation, admitted for right flank pain secondary to 1.5 x 0.6 cm proximal right ureteral stone with mild hydronephrosis. - Afebrile, VSS, lab work reviewed - creatinine and WBC within normal limits, nontoxic appearance - Pt continues to require PO and IV pain medication at regular intervals - We again reviewed options for intervention likely at tertiary center vs observation with supportive care and PO pain management - Continue with supportive care and prn analgesia - Strain urine, hydration. Will avoid Tamsulosin due to status. - Okay to give diet today, plan to reassess later this afternoon. - Please consult our service urgently if patient develops fever >101F, intractable pain or nausea, as this will necessitate urgent surgical interve ntion. Admission and Anticipated Discharge Date Admission Date: March 13, 2020 Supervising Physician Co-Signing Physician Notes Visited with patient today - we reviewed her past history she has had similar problems during 2 prior pregnancies she has a long stone history - medullary sponge kidney I have explained the major risks associated with any surgical intervention at this stage of - including the risk of losing the I have also explained that undergoing any surgery at this stage of her is probably best suited for a tertiary center - she is very understanding of the situation - during on her prior pregnancies, she dealt with a stone from 8 weeks on and was able to successfully avoid surgery - during another , she was stented around 8 weeks and ultimately had significant stent related issues (but a term ) PLAN: - short term - work on pain control, and if possible, d/c home on oral meds - let her establish with vegetable grader here - attempt to avoid surgery until she is through the 1st trimester, and then if surgery cannot be avoided, we can consider whether surgery should occur here or at a tertiary center Subjective Pt examined at bedside this AM. Laying in bed, appears comfortable on arrival. Reports ongoing right flank pain, requiring PO [place] and IV Dilaudid at regular intervals for pain control. Voiding without difficulty. No dysuria or hematuria. No stone passage. Reports intermittent nausea, no vomiting. No fever or chills. No additional concerns today. Chart review: Afebrile. Creatinine 0.81, WBC 9.13, Hgb 10.1, UC&S showed high counts of mixed probable cassidy. VS - BP 115/76, HR 70, Resp 16, Temp 36.8, O2 95% on RA Review of Systems Constitutional: as per Subjective / HPI Gastrointestinal: as per Subjective / HPI Genitourinary: as per Subjective / HPI Physical Exam Constitutional: well developed and well nourished; no acute distress and not ill appearing Respiratory: normal respiratory effort and able to speak in complete sentences; no respiratory distress and no labored breathing Cardiovascular: Extremities: no calf tenderness and no pedal edema Gastrointestinal (Abdomen): Inspection/Auscultation: abdomen normal to inspection; abdomen not distended Musculoskeletal: Head/Neck/Chest: normocephalic and head atraumatic Skin: no rashes, warm and dry Neurologic: moves all extremities and awake Psychiatric: Orientation: alert and oriented x 3 Genitourinary: no CVA tenderness Results & Data ([facility]) Vital Signs (Past 12 Hours) Vital Signs Temp Pulse Resp BP Pulse Ox 03/14/20 07:07 36.8 C 70 16 115/76 95 03/13/20 23:12 36.6 C 69 14 105/69 99 PG Care Time/CCT Total # of Minutes Spent Total Time Spent with Patient: Total time spent is greater than 50% in coordination of care (as documented) at patient's floor/unit and/or counseling patient: Coding Level of Care Code 11339 Subseq Hosp Care Lvl 2 Diagnoses Calculus of proximal right ureter N20.1
[2020-03-14 09:51] LABS: Ferritin 14.3 ng/ml (8-388)
--- NOTE | 2020-03-14 11:29 | Hospitalist Progress Note ---
Date of Service March 14, 2020 Assessment & Plan (1) Calculus of proximal right ureter: * 1.6 cm proximal right ureteral stone with mild hydroureteronephrosis- * Urology consulted -- appreciate assistance * --> Conservative treatment. If spikes fever, would need emergent intervention. If transferred, patient would have preference for [facility] * NSS + 20meq Kcl @ 125cc/hr -- will decrease to 100cc/hr * Ceftriaxone 1gm IV daily continued. Urine cx without growth * Pain control -- Dilaudid 0.2 mg IV every 4 hours as needed severe pain, tylenol, added hydrocodone PO as patient not for OR today for longer pain control. If needed, could increase dose of Dilaudid. * Zofran prn nausea * Strain all urine * Avoiding Flomax per urology * Ordered diet for today * Cr stable, making good urine. WBC wnl at 9.13k, afebrile * NPO after midnight for re-eval * Monitor labs in AM Per discussion with urology, will keep overnight and eval for intervention in AM. If anesthesia uncomfortable with doing, will also increase need for transfer at that time. Continue current course of treatment Thoughts possible multiple stones in a cluster rather than one 1.6cm calculi. Hopefully will resolve with conservative treatment but will need to notify Urology STAT if develops fever >101F *Should also have follow up with nephrology outpatient. Only follows with Urology. ?Benefit from [facility] referral. (2) Hydronephrosis with obstructing calculus: * See above (3) with 8 completed weeks gestation: * Patient reports this is her third time to have a kidney stone at 8 weeks gestation. * vitamin * Will obtain US vaginal in AM, consult OB if needed (4) Iron deficiency anemia: * Hx of iron deficiency anemia. Had been on supplementation at times in the past. Worse when she had her previous daughters. * Iron studies c/w iron deficiency anemia --> iron low 19, ferritin low 14.3, trans% sat low 6, transferrin 235 wnl, TIBC 333 wnl * Start oral supplementation * Added bowel regimen to prevent constipation * CBC in AM Dispo: continued inpatient stay possible need for OR tomorrow vs transfer for IR/nephrostomy tubes Admission and Anticipated Discharge Date Admission Date: March 13, 2020 Subjective Patient evaluated this morning. Spencer a little warm overnight but no fever. Has happened with previous pregnancies as well. Ordered medications for pain have seemed to be effective but she is still requiring IV pain medication.Pain located in her R lower back/flank. She has noticed issues with pain with movement at times. She is aware that this may have adverse effects on but states she was on pain medication for one of her two previous pregnancies without issues. Would feel better with transvaginal US in AM to ensure viability. Discussion with Urology and will plan for monitoring overnight but that anesthesia may not feel comfortable doing cysto/stent in but will re- eval for that vs transfer to [facility] for perc nephrostomy tube if needed. NO chest pain, shortness of breath, nausea, vomiting, dysuria, hematuria, bleeding/spotting at this time. Keeping up with oral intake. Discussed having follow up with Nephrology at discharge. Questions/concerns addressed at this time. Review of Systems Review of Systems: All systems reviewed & are unremarkable except as noted in HPI & below Physical Exam Constitutional: well developed and well nourished; no acute distress and not ill appearing Eyes: + anicteric sclerae; no scleral abnormality ENMT: Ears: no hearing impairment Neck: normal visual inspection and trachea midline Respiratory: normal respiratory effort and able to speak in complete sentences; no respiratory distress and no labored breathing Cardiovascular: Rate/Rhythm: regular rate and regular rhythm Extremities: no calf tenderness, no pedal edema and no edema Gastrointestinal (Abdomen): Inspection/Auscultation: abdomen normal to inspection and normal bowel sounds; abdomen not distended Percussion/Palpation: abdomen soft; abdomen nontender Musculoskeletal: Head/Neck/Chest: normocephalic and head atraumatic Skin: no rashes, warm and dry Neurologic: moves all extremities and awake Psychiatric: A+Ox3, euthymic affect Genitourinary: + CVA tenderness (R sided) Results & Data Results & Data ([facility]) Vital Signs (Past 12 Hours) Vital Signs Temp Pulse Resp BP Pulse Ox 03/14/20 07:07 36.8 C 70 16 115/76 95 Laboratory Results 03/14/20 03/14/20 03/14/20 Range/Units 07:07 07:07 07:07 WBC 9.13 (4.8-10.8) K/uL RBC 4.25 (4.2-5.4) M/uL Hgb 10.1 L (12.0-16.0) g/dL Hct 33.6 L (37-47) % MCV 79.1 L (80-100) fL MCH 23.8 L (25-34) pg MCHC 30.1 L (32-36) g/dL RDW Std Deviation 62.3 H (36.4-46.3) fL RDW Coeff of Estuardo 21.5 H (11.5-14.5) % Plt Count 279 (130-400) K/uL MPV 9.2 (7.4-10.4) fL Immature Gran % (Auto) 0.3 % Neut % (Auto) 50.9 % Lymph % (Auto) 39.3 % [place] % (Auto) 8.2 % Eos % (Auto) 1.0 % Baso % (Auto) 0.3 % Neut # (Auto) 4.64 (1.4-6.5) K/uL Lymph # (Auto) 3.59 H (1.2-3.4) K/uL [place] # (Auto) 0.75 H (0.11-0.59) K/uL Eos # (Auto) 0.09 (0-0.5) K/uL Baso # (Auto) 0.03 (0-0.2) K/uL Immature Gran # (Auto) 0.03 H (0.00-0.02) K/uL Poikilocytosis Present Anisocytosis Present Microcytosis Present Sodium 140 (136-145) mmol/L Potassium 3.9 D (3.5-5.1) mmol/L Chloride 113 H (98-107) mmol/L Carbon Dioxide 22 (21-32) mmol/L Anion Gap 5.0 (3-11) BUN 6 L D (7-18) mg/dl Creatinine 0.81 (0.6-1.2) mg/dl Est Cr Clr Drug Dosing 110.0 ml/min Est GFR ( Amer) 106.8 Est GFR (Non-Af Amer) 92.1 BUN/Creatinine Ratio 7.4 L (10-20) Glucose 81 (70-99) mg/dl Calcium 8.6 (8.5-10.1) mg/dl Phosphorus 3.0 (2.5-4.9) mg/dl Iron 19 L (35-150) mcg/dl TIBC 333 (250-450) mcg/dl Transferrin 235 (200-360) mg/dl Transferrin % Sat 6 L (15-50) % Ferritin 14.3 (8-388) ng/ml Albumin 3.1 L (3.4-5.0) gm/dl PG Care Time/CCT Total # of Minutes Spent Total Time Spent with Patient: Total time spent is greater than 50% in coordination of care (as documented) at patient's floor/unit and/or counseling patient: Coding Level of Care Code 53620 Subseq Hosp Care Lvl 2 Diagnoses Calculus of proximal right ureter N20.1 Hydronephrosis with obstructing calculus N13.2 with 8 completed weeks gestation Z3A.08 Iron deficiency anemia D50.9
[2020-03-14] MEDS: POLYETHYLENE (MIRALAX) 17 GM PACK PO SCH (13:52)
[2020-03-14] MEDS: DOCUSATE SODIUM 100 MG CAP PO SCH ×2 (13:53→20:15)
[2020-03-14] MEDS: ONDANSETRON INJ 2 MG/ML 2 ML VIAL IV PRN (13:54)
[2020-03-14] MEDS: cefTRIAXone SODIUM 2,000 MG in DEXTROSE 5% 50 ML IV SCH (20:15)
[2020-03-15] MEDS: ACETAMINOPHEN 325 MG TAB PO PRN (01:39)
[2020-03-15] MEDS: HYDROmorphone INJ 0.5 MG/0.5 ML SYR IV PRN ×2 (02:04→07:42)
[2020-03-15] MEDS: HYDROCODONE/ACETAMOPHEN 5/325MG TAB PO PRN ×4 (05:54→21:11)
[2020-03-15 07:17] LABS: Basophils # (auto) 0.03 K/uL (0-0.2); Basophils % (auto) 0.3 %; Eosinophils # (auto) 0.11 K/uL (0-0.5); Eosinophils % (auto) 1.1 %; Hematocrit (blood only) 34.5 % (37-47); Hemoglobin 10.6 g/dL (12.0-16.0); Immature Granulocytes # (auto) 0.01 K/uL (0.00-0.02); Immature Granulocytes % (auto) 0.1 %; Lymphocytes # (auto) 3.49 K/uL (1.2-3.4); Lymphocytes % (auto) 35.7 %; Mean Corpuscular Hemoglobin 24.2 pg (25-34); Mean Corpuscular Hgb Conc 30.7 g/dL (32-36); Mean Corpuscular Volume 78.8 fL (80-100); Mean Platelet Volume 9.4 fL (7.4-10.4); Monocytes # (auto) 0.89 K/uL (0.11-0.59); Monocytes % (auto) 9.1 %; Neutrophils # (auto) 5.25 K/uL (1.4-6.5); Neutrophils % (auto) 53.7 %; Platelet Count 311 K/uL (130-400); RDW Coefficient of Variation 21.1 % (11.5-14.5); RDW Standard Deviation 60.9 fL (36.4-46.3); Red Blood Count 4.38 M/uL (4.2-5.4); White Blood Count 9.78 K/uL (4.8-10.8)
--- NOTE | 2020-03-15 07:36 | Ultrasound Report ---
US OB transvaginal CLINICAL HISTORY: Evaluate . Pelvic pain. COMPARISON STUDY: None. FINDINGS: Transabdominal and transvaginal scanning of the pelvis was performed with international account representative im ages submitted. There is a single intrauterine gestational sac, 4 mm yolk sac, and a single shamar e demonstrating a crown-rump length of 1.94 cm. This is consistent with an 8 week and 3 day intrauter ine gestation. heart rate was 172 bpm. Small subchorionic hematoma adjacent to the gestational sac measuring 10 x 7 x 7 mm. This is considered to be within the range normal limits. No associated m ass effect along the gestational sac. The ovaries are within normal limits. There is a dominant cyst within the right ovary measuring 2 cm consistent with a corpus luteum. The cervix is closed. IMPRESSION: A single viable 8 week and 3 day intrauterine gestation with a heart rate of 172 b pm. ACT 112: Negative or not required by law. Electronically signed by: Mckinley Martínez M.D. 03/15/2020 7:34 AM
[2020-03-15 07:39] LABS: Echinocytes 1+; Poikilocytosis Present; Tear Drop Cells 1+
[2020-03-15] MEDS: ONDANSETRON INJ 2 MG/ML 2 ML VIAL IV PRN ×2 (07:42→18:26)
[2020-03-15 07:57] LABS: Albumin Level 3.1 gm/dl (3.4-5.0); BUN Creatinine Ratio 8.1 (10-20); Creatinine Clr Calc Pharmacy 100.1 ml/min; Est GFR (African American) 95.3; Est GFR (Non-African American) 82.2; Potassium 4.1 mmol/L (3.5-5.1)
[2020-03-15 08:01] LABS: Phosphorus 3.7 mg/dl (2.5-4.9)
[2020-03-15] MEDS: DOCUSATE SODIUM 100 MG CAP PO SCH ×2 (09:27→21:12)
[2020-03-15] MEDS: PRENATAL VITAMIN 1 TAB PO SCH (09:28)
[2020-03-15] MEDS: FERROUS SULFATE 325 MG TAB PO SCH (09:28)
[2020-03-15] MEDS: POLYETHYLENE (MIRALAX) 17 GM PACK PO SCH (09:28)
--- NOTE | 2020-03-15 10:15 | Urology Progress Note ---
Date of Service March 15, 2020 Assessment & Plan (1) Calculus of proximal right ureter: 39 year-old female, at 8 week gestation, admitted for right flank pain secondary to 1.5 x 0.6 cm proximal right ureteral stone with mild hydronephrosis. - Case reviewed with Dr. Giraldo - Afebrile, VSS, lab work reviewed - creatinine and WBC within normal limits, nontoxic appearance - Transvaginal US confirmed a single viable 8 week and 3 day intrauterine gestation - Pt continues to utilize PO and IV pain medication at regular intervals - Reviewed options for intervention at tertiary center given status vs observation and supportive care at home - She is understanding of situation and risks involved with surgery in first trimester - Work on pain control and transition to PO medications, and if possible, d/c home on oral meds - Attempt to avoid surgery until she is through the 1st trimester, and then if surgery cannot be avoided, we can consider whether surgery should occur here or at a tertiary center - Will continue to follow with primary team - Please consult our service urgently if patient develops fever >101F, intractable pain or nausea, as this will necessitate urgent surgical intervention. Admission and Anticipated Discharge Date Admission Date: March 13, 2020 Subjective Awake, alert and sitting up in bed this AM, appears mildly uncomfortable. No acute issues overnight. Tolerating diet, occasional nausea, no vomiting. Voiding without difficulty. No stone passage. No dysuria or hematuria. No abdominal pain. No BM since admission day. Passing gas. Continues to have right flank pain requiring PO and IV narcotics at regular intervals. No fever or chills. No additional concerns today. Chart review: Afebrile Transvaginal US showed a single viable 8 week and 3 day intrauterine gestation with a heart rate of 172 bpm. Creatinine 0.89 WBC 9.78 Hgb 10.6 VS - BP 110/73, HR 67, Resp 16, Temp 36.6, O2 98% on RA Review of Systems Constitutional: as per Subjective / HPI Gastrointestinal: as per Subjective / HPI Genitourinary: as per Subjective / HPI Physical Exam Constitutional: well developed and well nourished; no acute distress and not ill appearing Respiratory: normal respiratory effort and able to speak in complete sentences; no respiratory distress and no labored breathing Cardiovascular: Extremities: no pedal edema Gastrointestinal (Abdomen): Inspection/Auscultation: abdomen normal to inspection; abdomen not distended Musculoskeletal: Head/Neck/Chest: normocephalic and head atraumatic Skin: no rashes, warm and dry Neurologic: moves all extremities and awake Psychiatric: Orientation: alert and oriented x 3 Genitourinary: no CVA tenderness Results & Data ([facility]) Vital Signs (Past 12 Hours) Vital Signs Temp Pulse Resp BP Pulse Ox 03/15/20 07:57 36.6 C 67 16 110/73 98 03/14/20 23:32 36.8 C 64 14 101/63 99 PG Care Time/CCT Total # of Minutes Spent Total Time Spent with Patient: Total time spent is greater than 50% in coordination of care (as documented) at patient's floor/unit and/or counseling patient: Coding Level of Care Code 29113 Subseq Hosp Care Lvl 2 Diagnoses Calculus of proximal right ureter N20.1
--- NOTE | 2020-03-15 11:14 | Discharge Summary ---
Date of Service March 15, 2020 Admission HPI Per Admitting Provider The patient is a 39-year-old female with a past medical history including pyelonephritis, right and left ureteral calculus, acute renal failure, mood disorder, right-sided de Quervain's tenosynovitis, mesenteric adenitis, and iron deficiency. She initially presented to the emergency department last evening with right-sided flank pain, was noted to have kidney stone, and was discharged to try to follow-up in outpatient setting. However, patient worsening symptoms this evening, and presented to the ED for reassessment. Renal ultrasound this evening shows a 1.6 cm proximal right ureteral stone and bilateral hydroureteronephrosis. Discharge Data Allergies Allergy/AdvReac Type Severity Reaction Status Date / Time morphine Allergy Intermediate HIVES Verified 03/12/20 22:56 naproxen Allergy Intermediate HIVES Verified 03/12/20 22:56 Consultations 03/13/20 00:32 ED Decision to Admit Stat 03/13/20 02:03 Consult Urology Routine Ordered Studies 03/12/20 22:29 US renal/blad retro comp Urgent 03/15/20 US OB <= 14 weeks fetus Routine 03/15/20 07:00 US OB transvaginal Routine Hospital Course (1) Calculus of proximal right ureter: * 1.6 cm proximal right ureteral stone with mild hydroureteronephrosis- * Urology consulted -- appreciate assistance * --> Conservative treatment. If spikes fever, would need emergent in tervention. If transferred, patient would have preference for [facility] * NSS + 20meq Kcl @ 125cc/hr -- will decrease to 100cc/hr * Ceftriaxone 1gm IV daily continued. Urine cx without growth * Pain control -- Dilaudid 0.2 mg IV every 4 hours as needed severe pain, tylenol, added hydrocodone PO as patient not for OR today for longer pain control. If needed, could increase dose of Dilaudid. * Zofran prn nausea * Strain all urine * Avoiding Flomax per urology * Ordered diet for today * Cr stable, making good urine. WBC wnl at 9.13k, afebrile * NPO after midnight for re-eval * Monitor labs in AM Per discussion with urology, will keep overnight and eval for intervention in AM. If anesthesia uncomfortable with doing, will also increase need for transfer at that time. Continue current course of treatment Thoughts possible multiple stones in a cluster rather than one 1.6cm calculi. Hopefully will resolve with conservative treatment but will need to notify Urology STAT if develops fever >101F *Should also have follow up with nephrology outpatient. Only follows with Urology. ?Benefit from [facility] referral. (2) Hydronephrosis with obstructing calculus: * See above (3) with 8 completed weeks gestation: * Patient reports this is her third time to have a kidney stone at 8 weeks gestation. * vitamin * Will obtain US vaginal in AM, consult OB if needed Discharge Plan Discharge Items Reason For Visit: PROX R URETERAL STONE, MILD HYDRO, 8 WK Medications and DC Order Prescriptions: No Action PNV cmb#[id number] fumarate-FA [] 28 mg iron- 800 mcg Tablet 1 tab PO DAILY RF: 0 cephalexin [Keflex] 500 mg capsule 500 mg PO Q12H 5 Days Qty: 10 RF: 0 Admission Data Admit Date/Time: 03/13/20 00:53 Attending Provider: Isaias Enciso Admit Provider: Aki Pathak Primary Care Provider: Beckie Almanza Other Providers: Aki Pathak ; Tay Lemus Coding Diagnoses Calculus of proximal right ureter N20.1 Hydronephrosis with obstructing calculus N13.2 with 8 completed weeks gestation Z3A.08
--- NOTE | 2020-03-15 11:15 | Ultrasound Report ---
US OB transvaginal CLINICAL HISTORY: Evaluate . Pelvic pain. COMPARISON STUDY: None. FINDINGS: Transabdominal and transvaginal scanning of the pelvis was performed with entry level account representative im ages submitted. There is a single intrauterine gestational sac, 4 mm yolk sac, and a single shamar e demonstrating a crown-rump length of 1.94 cm. This is consistent with an 8 week and 3 day intrauter ine gestation. heart rate was 172 bpm. Small subchorionic hematoma adjacent to the gestational sac measuring 10 x 7 x 7 mm. This is considered to be within the range normal limits. No associated m ass effect along the gestational sac. The ovaries are within normal limits. There is a dominant cyst within the right ovary measuring 2 cm consistent with a corpus luteum. The cervix is closed. IMPRESSION: A single viable 8 week and 3 day intrauterine gestation with a heart rate of 172 b pm. ACT 112: Negative or not required by law. Electronically signed by: Mckinley Martínez M.D. 03/15/2020 7:34 AM
--- NOTE | 2020-03-15 11:16 | Hospitalist Progress Note ---
Date of Service March 15, 2020 Assessment & Plan (1) Calculus of proximal right ureter: * 1.6 cm proximal right ureteral stone with mild hydroureteronephrosis- * Urology consulted -- appreciate assistance * --> Conservative treatment. If spikes fever, would need emergent intervention. If transferred, patient would have preference for [facility] * NSS + 20meq Kcl @ 100cc/hr * Ceftriaxone 1gm IV daily continued. Urine cx without growth * Pain control -- Dilaudid 0.2 mg IV every 4 hours as needed severe pain -- will discontinue this * Continue with PO pain hydrocodone 1-2 tablets prn, tylenol for non-severe pain * Antiemetics * Cr stable and patient continues to make good UO. WBC wnl, afebrile * Strain all urine * Avoiding Flomax per urology Per discussion with urology, will keep overnight additional night and continue PO pain control. Will make attempts to get patient through first trimester prior to any intervention if possible given 8wk Thoughts possible multiple stones in a cluster rather than one 1.6cm calculi. Hopefully will resolve with conservative treatment but will need to notify Urology STAT if develops fever >101F *Should also have follow up with nephrology outpatient. ?Benefit from [facility] referral. (2) Hydronephrosis with obstructing calculus: * See above (3) with 8 completed weeks gestation: * Patient reports this is her third time to have a kidney stone at 8 weeks gestation. * vitamin * Transvaginal with IUP 8w 3 day, HR 172bpm. hcg [id number] * Will need f/u OB outpatient (4) Tobacco smoking affecting : Smoking cessation encouraged Patient previously denied need for nicotine patch but requesting one today -- ordered and would rec cessation again at d/c (5) History of delivery, currently : * hx delivery 28wk still born. states ruptured amniotic sac during * Ultrasound this morning with viable IUP 8w3d * Outpatient f/u (6) Iron deficiency anemia: * history of such and has had transfusions in the past * also worsened during * iron panel c/w such * placed on daily iron supplementation * increased bowel regimen given constipation and on opioids Dispo: continued inpatient stay Admission and Anticipated Discharge Date Admission Date: March 13, 2020 Subjective Patient evaluated this morning. Pain controlled with ordered medications and we discussed cutting off IV medications and utilizing PO in anticipation for possible d/c in the next day if she is able to make it through her first trimester prior to stent/intervention if possible. Remains afebrile. Pain to her R flank and back. Changes based on position and she has worse pain at night. Has not passed stone. Urine still yellow and making adequate amounts. She is requesting an additional dose of IV Dilaudid, however discussed longer lasting relief with PO option and vital signs without evidence of distress. Has been passing gas but no bowel movements. Encouraged ambulation in the halls. Patient requesting to look at transvaginal US imaging. She has 7 and 9 year old at home currently who split time 50/50 with their father. No fever, chills, chest pain ,shortness of breath. She does note nausea but states she believes some of this may be secondary to and is improved with saltines, but she was triggered by the smell of hand data security analyst this morning. Follows with Beckie from [facility] for PCP as well as [facility] for OB. She will need f/u with both at discharge and will need continued iron supplementation. Review of Systems Review of Systems: All systems reviewed & are unremarkable except as noted in HPI & below Physical Exam Constitutional: well developed and well nourished; no acute distress and not ill appearing Eyes: + anicteric sclerae; no scleral abnormality ENMT: Ears: no hearing impairment Neck: normal visual inspection and trachea midline Respiratory: normal respiratory effort and able to speak in complete sentences; no respiratory distress and no labored breathing Cardiovascular: Rate/Rhythm: regular rate and regular rhythm Extremities: no calf tenderness, no pedal edema and no edema Gastrointestinal (Abdomen): Inspection/Auscultation: abdomen normal to inspection and normal bowel sounds; abdomen not distended Percussion/Palpation: abdomen soft; abdomen nontender Musculoskeletal: Head/Neck/Chest: normocephalic and head atraumatic Skin: no rashes, warm and dry Neurologic: moves all extremities and awake Psychiatric: A+Ox3, euthymic affect Genitourinary: + CVA tenderness (R sided) Results & Data Results & Data ([facility]) Vital Signs (Past 12 Hours) Vital Signs Temp Pulse Resp BP Pulse Ox 03/15/20 07:57 36.6 C 67 16 110/73 98 03/14/20 23:32 36.8 C 64 14 101/63 99 Laboratory Results 03/15/20 03/15/20 03/14/20 Range/Units 06:40 06:40 18:20 WBC 9.78 (4.8-10.8) K/uL RBC 4.38 (4.2-5.4) M/uL Hgb 10.6 L (12.0-16.0) g/dL Hct 34.5 L (37-47) % MCV 78.8 L (80-100) fL MCH 24.2 L (25-34) pg MCHC 30.7 L (32-36) g/dL RDW Std Deviation 60.9 H (36.4-46.3) fL RDW Coeff of Estuardo 21.1 H (11.5-14.5) % Plt Count 311 (130-400) K/uL MPV 9.4 (7.4-10.4) fL Immature Gran % (Auto) 0.1 % Neut % (Auto) 53.7 % Lymph % (Auto) 35.7 % Phillips % (Auto) 9.1 % Eos % (Auto) 1.1 % Baso % (Auto) 0.3 % Neut # (Auto) 5.25 (1.4-6.5) K/uL Lymph # (Auto) 3.49 H (1.2-3.4) K/uL Phillips # (Auto) 0.89 H (0.11-0.59) K/uL Eos # (Auto) 0.11 (0-0.5) K/uL Baso # (Auto) 0.03 (0-0.2) K/uL Immature Gran # (Auto) 0.01 (0.00-0.02) K/uL Poikilocytosis Present Tear Drop Cells 1+ Echinocytes 1+ Sodium 139 (136-145) mmol/L Potassium 4.1 (3.5-5.1) mmol/L Chloride 110 H (98-107) mmol/L Carbon Dioxide 24 (21-32) mmol/L Anion Gap 5.0 (3-11) BUN 7 (7-18) mg/dl Creatinine 0.89 (0.6-1.2) mg/dl Est Cr Clr Drug Dosing 100.1 ml/min Est GFR ( Amer) 95.3 Est GFR (Non-Af Amer) 82.2 BUN/Creatinine Ratio 8.1 L (10-20) Glucose 84 (70-99) mg/dl Calcium 9.0 (8.5-10.1) mg/dl Phosphorus 3.7 (2.5-4.9) mg/dl Albumin 3.1 L (3.4-5.0) gm/dl HCG, Quant 55921 mIU/ml Diagnostic Findings US OB transvaginal CLINICAL HISTORY: Evaluate . Pelvic pain. COMPARISON STUDY: None. FINDINGS: Transabdominal and transvaginal scanning of the pelvis was performed with outbound sales representative images submitted. There is a single intrauterine gestational sac, 4 mm yolk sac, and a single pole demonstrating a crown-rump length of 1.94 cm. This is consistent with an 8 week and 3 day intrauterine gestation. heart rate was 172 bpm. Small subchorionic hematoma adjacent to the gestational sac measuring 10 x 7 x 7 mm. This is considered to be within the range normal limits. No associated mass effect along the gestational sac. The ovaries are within normal limits. There is a dominant cyst within the right ovary measuring 2 cm consistent with a corpus luteum. The cervix is closed. IMPRESSION: A single viable 8 week and 3 day intrauterine gestation with a heart rate of 172 bpm. PG Care Time/CCT Total # of Minutes Spent Total Time Spent with Patient: Total time spent is greater than 50% in coordination of care (as documented) at patient's floor/unit and/or counseling patient: Coding Level of Care Code 33497 Subseq Hosp Care Lvl 2 Diagnoses Calculus of proximal right ureter N20.1 Hydronephrosis with obstructing calculus N13.2 with 8 completed weeks gestation Z3A.08 Tobacco smoking affecting O99.330 History of delivery, currently O09.899 Iron deficiency anemia D50.9
[2020-03-15] MEDS: NSS + 20MEQ KCL 20 MEQ/1,000 ML BAG IV SCH ×2 (11:31→21:11)
[2020-03-15] MEDS ORDERED: bisacodyL 5 MG TABEC PO ONE (11:39)
[2020-03-15] MEDS ORDERED: oxyCODONE HCL IR 5 MG TAB (IMMEDIATE RELEASE) PO STA (12:45)
[2020-03-15] MEDS: NICOTINE 14 MG/24 HR PATCH TD SCH (15:48)
[2020-03-15] MEDS ORDERED: SOD PHOSPHATE/SOD BIPHOSPHATE ENEMA 132 ML BTL PR PRN (16:46)
[2020-03-15] MEDS: cefTRIAXone SODIUM 2,000 MG in DEXTROSE 5% 50 ML IV SCH (21:14)
[2020-03-15] MEDS ORDERED: oxyCODONE HCL IR 5 MG TAB (IMMEDIATE RELEASE) PO PRN (22:40)
[2020-03-16 06:54] LABS: Hematocrit (blood only) 36.7 % (37-47); Hemoglobin 11.3 g/dL (12.0-16.0); Mean Corpuscular Hemoglobin 24.2 pg (25-34); Mean Corpuscular Hgb Conc 30.8 g/dL (32-36); Mean Corpuscular Volume 78.6 fL (80-100); Mean Platelet Volume 9.3 fL (7.4-10.4); Platelet Count 309 K/uL (130-400); RDW Coefficient of Variation 21.2 % (11.5-14.5); RDW Standard Deviation 60.4 fL (36.4-46.3); Red Blood Count 4.67 M/uL (4.2-5.4)
[2020-03-16] MEDS: NSS + 20MEQ KCL 20 MEQ/1,000 ML BAG IV SCH (07:20)
[2020-03-16 07:22] LABS: BUN Creatinine Ratio 13.6 (10-20); Creatinine Clr Calc Pharmacy 106.1 ml/min; Est GFR (African American) 102.2; Est GFR (Non-African American) 88.2
[2020-03-16] MEDS: DOCUSATE SODIUM 100 MG CAP PO SCH (08:35)
[2020-03-16] MEDS: PRENATAL VITAMIN 1 TAB PO SCH (08:36)
[2020-03-16] MEDS: FERROUS SULFATE 325 MG TAB PO SCH (08:36)
[2020-03-16] MEDS: HYDROCODONE/ACETAMOPHEN 5/325MG TAB PO PRN ×2 (08:37→12:26)
[2020-03-16] MEDS: POLYETHYLENE (MIRALAX) 17 GM PACK PO SCH (08:37)
[2020-03-16] MEDS: ONDANSETRON INJ 2 MG/ML 2 ML VIAL IV PRN (08:37)
[2020-03-16] MEDS: NICOTINE 14 MG/24 HR PATCH TD SCH (08:45)
--- NOTE | 2020-03-16 08:59 | Urology Progress Note ---
Date of Service March 16, 2020 Assessment & Plan (1) Kidney stone: 8 weeks with obstructing right proximal ureteral stone - discussed transfer to a tertiary center vs outpt pain management - wants outpt management - plan for d/c home today - if she can get through the next few weeks, with ob and anesthesia approval, we could stent at the end of the first trimester and potentially treat around 16 weeks (URS/LL) - if treatment required prior to that time, I would strongly recommend she seeks this treatment at a tertiary center Admission and Anticipated Discharge Date Admission Date: March 13, 2020 Subjective Still quite uncomfortable, but would like to try to go home no fevers/chills still with pain no nausea at present Physical Exam Constitutional: well developed and well nourished Neck: neck nontender Respiratory: normal respiratory effort; no respiratory distress and does not use accessory muscles Cardiovascular: Rate/Rhythm: regular rate Vessels: radial pulses present Extremities: no edema Gastrointestinal (Abdomen): Inspection/Auscultation: abdomen normal to inspection Percussion/Palpation: abdomen soft; abdomen nontender and no guarding Musculoskeletal: Head/Neck/Chest: normocephalic and head atraumatic Extremities: extremities normal to inspection Skin: no rashes and no lesions Trauma: no evidence of skin trauma Neurologic: awake; not obtunded Speech / Cognition: normal speech Motor/Sensory: no tremor Psychiatric: Orientation: alert and oriented x 3 Lymphatic: no lymphadenopathy Results & Data ([facility]) Vital Signs (Past 12 Hours) Vital Signs Temp Pulse Resp BP Pulse Ox 03/16/20 07:30 36.9 C 65 16 91/55 L 95 03/15/20 23:21 36.7 C 92 H 18 131/82 98 PG Care Time/CCT Total # of Minutes Spent Total Time Spent with Patient: Total time spent is greater than 50% in coordination of care (as documented) at patient's floor/unit and/or counseling patient: Coding Level of Care Code 82391 Subseq Hosp Care Lvl 2 Diagnoses Kidney stone N20.0
--- NOTE | 2020-03-16 09:29 | Discharge Summary ---
Date of Service March 16, 2020 Admission HPI Per Admitting Provider Chief Complaint: The patient presents to the emergency department with worsening right flank and lower abdominal pain that she initially underwent assessment for in the ED last evening. Primary Care Provider: Beckie Almanza PA-C The patient is a 39-year-old female with a past medical history including pyelonephritis, right and left ureteral calculus, acute renal failure, mood disorder, right-sided de Quervain's tenosynovitis, mesenteric adenitis, and iron deficiency. She initially presented to the emergency department last evening with right-sided flank pain, was noted to have kidney stone, and was discharged to try to follow-up in outpatient setting. However, patient worsening symptoms this evening, and presented to the ED for reassessment. Renal ultrasound this evening shows a 1.6 cm proximal right ureteral stone and bilateral hydroureteronephrosis. Admission Exam Per Admitting Provider The patient is awake, alert and oriented 3, well developed and well nourished, normocephalic and atraumatic, lying in bed and in no acute distress. HEENT--PERRL, EOMI, mucous membranes and oropharynx dry. Neck--supple. No JVD. No bruits. Thyroid normal, trachea midline, no adenopathy. Heart--normal S1 and S2. No murmurs, rubs or gallops. Lungs--clear bilaterally, no respiratory distress, no accessory muscle use. Abdomen--normal bowel sounds and soft. Tender right flank. Nondistended. Extremities--no cyanosis or clubbing. No edema. Dermatologic--normal skin turgor, normal color, no abnormal lymph nodes, no rash. Neurologic--cranial nerves II through XII grossly intact. Rheumatologic--normal range of motion. Psychiatric--normal affect. Principal Diagnosis 1.6cm R obstructing stone with hydronephrosis, 8 week Discharge Exam Constitutional well developed, well nourished and comfortable; no acute distress and not ill appearing Eyes + anicteric sclerae; no scleral abnormality ENMT Ears: no hearing impairment Neck normal visual inspection and trachea midline; neck nontender Respiratory normal respiratory effort and able to speak in complete sentences; no respiratory distress, no labored breathing and does not use accessory muscles Auscultation: lungs clear to auscultation bilaterally Cardiovascular Rate/Rhythm: regular rate and regular rhythm Vessels: radial pulses present Extremities: no calf tenderness, no pedal edema and no edema Gastrointestinal (Abdomen) Inspection/Auscultation: abdomen normal to inspection and normal bowel sounds; abdomen not distended Percussion/Palpation: abdomen soft; abdomen nontender and no guarding Musculoskeletal Head/Neck/Chest: normocephalic and head atraumatic Extremities: extremities normal to inspection Skin warm, dry Neurologic PERRL, EOMI, accommodation nl, no face palsy, no dysarthria moves all extremities and awake Psychiatric Orientation: alert and oriented x 3 Genitourinary + CVA tenderness (R sided, decreased) Lymphatic no lymphadenopathy Discharge Data Allergies Allergy/AdvReac Type Severity Reaction Status Date / Time morphine Allergy Intermediate HIVES Verified 03/12/20 22:56 naproxen Allergy Intermediate HIVES Verified 03/12/20 22:56 Consultations 03/13/20 00:32 ED Decision to Admit Stat 03/13/20 02:03 Consult Urology Routine Ordered Studies 03/12/20 22:29 US renal/blad retro comp Urgent 03/15/20 US OB <= 14 weeks fetus Routine 03/15/20 07:00 US OB transvaginal Routine Hospital Course (1) Calculus of proximal right ureter: * 1.6 cm proximal right ureteral stone with mild hydroureteronephrosis- * Urology consulted -- appreciate assistance * --> Opted for conservative treatment given patient 8 weeks * Treated with IVF, antiemetics, pain control -- dilaudid and oxycodone ordered but weaned off IV pain control and pain seemed to be manageable on PO alone. VSS * Ceftriaxone while inpatient, however negative urine culture and no need for abx at discharge. Confirmed with Urology * Sent prescription for oxycodone and zofran at discharge and she will need to have follow up with PCP/Urology/Nephrology/OB at discharge * Ideally, patient can make through first trimester with pain control and then would consider stent, however if patient condition worsens or she develops fever, she may need intervention at tertiary center for IR/nephrostomy as Dr. Giraldo does not feel anesthesia would take this patient to OR being this early in * Strained all urine -- had not passed stone, intially felt possibly to be a cluster of stones that may hopefully pass. Not able to utilize flomax per discussion with Urology given Creatinine remained stable and patient with continued good urine output during hospitalization (2) Hydronephrosis with obstructing calculus: * See above (3) with 8 completed weeks gestation: Patient reports this is her third time to have a kidney stone at 8 weeks gestation. vitamin Transvaginal with IUP 8w 3 day, HR 172bpm. hcg [id number] Will need f/u OB outpatient -- appointment for this upcoming Wednesday (4) Tobacco smoking affecting : Smoking cessation encouraged Patient previously denied need for nicotine patch but then requested during admission (5) History of delivery, currently : hx delivery 28wk still born. states ruptured amniotic sac during Ultrasound this morning with viable IUP 8w3d Outpatient f/u on wednesday smoking cessation encouraged (6) Iron deficiency anemia: history of such and has had transfusions in the past also worsened during iron panel c/w such placed on daily iron supplementation to be continued at discharge increased bowel regimen given constipation and on opioids and should continue at discharge should follow up with PCP/OB as above Discharged home with pain control, antiemetics Hopefully she will be able to make it through first trimester prior to intervention, however if patient ends up spiking a fever/worsening pain she may need to go to tertiary center for nephrostomy If able to make it through first trimester, can have follow up with planned cysto/stent with Urology Total Time Total Time Spent Total Time Spent (In Minutes): 60 Discharge Plan Discharge Items Patient Disposition: Home - Self-Care Reason For Visit: PROX R URETERAL STONE, MILD HYDRO, 8 WK Discharge Diagnosis: R sided kidney stone with hydronephrosis, 8 week Goals: You have been hospitalized for an acute medical problem. During your stay at [facility], we have made an effort to correct the problem that brought you to the hospital while keeping you as comfortable as possible. Medications were used to bring your condition under control and your discharge instructions will include directions for any medications you should take after leaving the hospital. Please make sure you see your Primary Care Provider as part of your follow up plan. Activity: Resume your previous activity Non-emergency contact: Primary Care Provider, Specialist and Community Service Officer Call non-emergency contact if: you have any medication questions, your symptoms worsen and your pain is concerning for you Follow-up/Referrals: Beckie Almanza PA-C [Primary Care Provider] - (1 week) Jeffrey Marie MD [Physician] - (1 month -- recurrent kidney stones, hx medullary sponge kidney) Luigi Lopez Jr, MD, FACOG [Physician] - (next week as previously schedu led) aTy Lemus DO [Physician] - (1 month) Diet: Regular Ambulatory Orders: Basic Metabolic Panel (Routine) Timeframe: 1 Week Location: Determined by Patient Ordered By: Caryl Qureshi Attending Provider Instructions: You have been hospitalized and found to have an obstructing right sided kidney stone (along with other smaller stone) and were admitted for pain control and IV fluids with Urology consultation. GIven your (confirmed 8weeks, 3 days on transvaginal imaging), it is not ideal to proceed under anesthesia at this time and would be preferable to wait until at least 16 weeks. Your kidney function has remained stable and you have been making adequate urine. If you develop fevers, chills, or uncontrollable pain, you may need to return to the emergency department for emergent intervention, with possible complications to . They may also want to consider transfer/care at a tertiary facility for IR/nephrostomy tube if you need intervention prior to completing your first trimester. You have been set a prescription for pain medication to take for breakthrough pain and should continue to utilize Tylenol for all other non-severe pain. You have also been sent a prescription for Zofran for nausea, but should be aware that this also comes with risks in and should be used sparingly. You will need to continue follow up with OB next Wednesday as previously confirmed with OB. You should discuss iron supplementation with them as you have a history of iron deficiency anemia in and have been found to be iron deficient on labs during admission as well and should continue daily supplementations. Be aware these can worsen constipation and you should continue stool softeners to help keep your bowels regular. You should have weekly labs drawn to make sure your kidney function remains stable while awaiting treatment. If at any point, your kidney function worsens, you may need more urgent intervention. You should follow up with your primary care provider in the next week for continued pain management while attempting conservative treatment for now. You should also follow up with a software integration developer given your history of medullary sponge kidney and could consider referral to [facility] with stone analysis at follow up to prevent these stones in the future. You should follow up with Urology to arrange for stent/cysto if able to wait until 2nd trimester. You should strongly consider quitting smoking, as this increases risk of compl ications in as well as mcc effects on your health. It has been a pleasure being a part of the medical team providing for you while you have been in the hospital. Take care! Pending Studies at Discharge: No Stand-Alone Forms: [facility], Opioid Pain Management, Work/School Release (Inpt), Smoking Cessation Medications and DC Order Prescriptions: New ferrous sulfate 325 mg (65 mg iron) Tablet,Delayed Release (Dr/Ec) 325 mg PO QAM Qty: 30 RF: 0 oxycodone 5 mg Tablet 5 mg PO Q4 PRN (Reason: pain) Qty: 12 RF: 0 ondansetron 4 mg tablet,disintegrating 4 mg PO Q8H PRN (Reason: nausea and vomiting) 5 Days Qty: 8 RF: 0 Continued PNV [id number] fumarate-FA [] 28 mg iron- 800 mcg Tablet 1 tab PO DAILY RF: 0 Discontinued cephalexin [Keflex] 500 mg capsule 500 mg PO Q12H 5 Days Qty: 10 RF: 0 Discharge Orders: Discharge Order (Routine); Ordered 03/16/20 Ordered By: Caryl Heredia/Other Patient Handouts: Medicine for Pain, Taking Opioid Medicines, ED Kidney Stone w/ Colic Admission Data Admit Date/Time: 03/13/20 00:53 Attending Provider: Isaias Enciso Admit Provider: Aki Pathak Primary Care Provider: Beckie Almanza Other Providers: Aki Pathak ; Tay Lemus Other Interventions: Discharge Summary Assessment (RN) Last Done: 03/16/20 10:50 Coding Level of Care Code D/C Day Management >30 mins Diagnoses Calculus of proximal right ureter N20.1 Hydronephrosis with obstructing calculus N13.2 with 8 completed weeks gestation Z3A.08 Tobacco smoking affecting O99.330 History of delivery, currently O09.899 Iron deficiency anemia D50.9
== END 2020-03-16 17:14 | disposition home or self-care (01) | DRG 832 ==
LOC: ED 22:18 → 3N 03-13 00:53 → SUATTDRO 03-13 00:53 → 3N 03-13 01:48